=== PATIENT | female | born 1945 | race Caucasian/White ===

== ENCOUNTER 2020-08-19 20:29 | Outpatient (CLI) | payer MEDICARE | END 2020-08-19 20:30 | disposition EMS.NT | LOC: EMS 20:29 | PROVIDERS: ATTEND Surgery | DX: S09.90XA Unspecified injury of head, initial encounter (principal); W19.XXXA Unspecified fall, initial encounter; Y92.199 Unspecified place in other specified residential institution as the place of occurrence of the external cause ==

== ENCOUNTER 2021-01-04 16:26 | Outpatient (CLI) | payer MEDICARE | END 2021-01-04 16:27 | disposition EMS.NT | LOC: EMS 16:26 | DX: Z03.89 Encounter for observation for other suspected diseases and conditions ruled out (principal) ==

== ENCOUNTER 2021-03-03 15:10 | Outpatient (CLI) | payer MEDICARE | END 2021-03-03 15:11 | disposition EMS.NT | LOC: EMS 15:10 | DX: R41.0 Disorientation, unspecified (principal) ==

== ENCOUNTER 2021-04-03 21:34 | Outpatient (CLI) | payer MEDICARE | END 2021-04-03 21:35 | disposition critical access hospital (66) | LOC: EMS 21:34 | DX: Z04.3 Encounter for examination and observation following other accident (principal); M25.511 Pain in right shoulder | CPT/HCPCS: A0425; A0427 ==

== ENCOUNTER 2021-04-03 22:00 | Emergency (ER) | payer MEDICARE ==
[2021-04-04 00:21] VITALS: BP 109/82
--- NOTE | 2021-04-04 01:56 | ED Physician Documentation ---
History of Present Illness - Stated complaint Stated Complaint: HBD/GLF - Chief complaint Chief Complaint: Trauma Ext - History obtained from History obtained from: Patient, EMS - Additonal information Additional information: Patient is brought to the emergency department by EMS for chief complaint of ground-level fall and right shoulder injury. Patient states she did do some drinking tonight tripped while walking in her house. She fell on her right shoulder and states has been hurting. She denies any other complaints whatsoever. No head injury. No neck pain. No chest or abdominal pain. No hip pain. Review of Systems Ten Systems: 10 systems reviewed and negative Constitutional: reports: Reviewed and negative Eyes: reports: Reviewed and negative Ears: reports: Reviewed and negative Nose: reports: Reviewed and negative Throat: reports: Reviewed and negative Cardiac: reports: Reviewed and negative Respiratory: reports: Reviewed and negative GI: reports: Reviewed and negative : reports: Reviewed and negative Skin: reports: Reviewed and negative Musculoskeletal: reports: Joint pain Neurologic: reports: Reviewed and negative Psychiatric: reports: Reviewed and negative Endocrine: reports: Reviewed and negative Immunocompromised: reports: Reviewed and negative PD PAST MEDICAL HISTORY - Past Medical History Past Medical History: Yes Cardiovascular: Hypertension, High cholesterol Neuro: Dementia Endocrine/Autoimmune: HyPOthyroidism Psych: Depression, Anxiety - Present Medications Home Medications: Ambulatory Orders Medication Instructions Recorded Confirmed Gabapentin [Neurontin] 300 mg PO DAILY 04/03/21 04/03/21 Levothyroxine [Synthroid] 25 mcg PO DAILY 04/03/21 04/03/21 Lipase/Protease/Amylase [Creon Dr 1 each PO DAILY 04/03/21 04/03/21 12,000 Units Capsule] Lisinopril [Zestril] 25 mg PO DAILY 04/03/21 04/03/21 Metoprolol Succinate [Toprol Xl] 50 mg PO DAILY 04/03/21 04/03/21 QUEtiapine [SEROquel] 25 mg PO DAILY 04/03/21 04/03/21 Sertraline [Zoloft] 25 mg PO DAILY 04/03/21 04/03/21 - Allergies Allergies/Adverse Reactions: Allergies Allergy/AdvReac Type Severity Reaction Status Date / Time codeine Allergy Unknown Verified 04/03/21 22:05 latex Allergy Unknown Verified 04/03/21 22:05 Sulfa (Sulfonamide Allergy Unknown Verified 04/03/21 22:05 Antibiotics) - Social History Does the pt smoke?: No Smoking Status: Never smoker Does the pt drink ETOH?: Yes - Immunizations Immunizations are current?: Yes PD ED PE NORMAL - Vitals Vital signs reviewed: Yes - General General: Alert and oriented X 3, No acute distress, Well developed/nourished, Other (Appears mildly intoxicated.) - HEENT HEENT: Atraumatic, PERRL, EOMI, Moist mucous membranes - Neck Neck: Supple, no meningeal sign, No bony TTP - Cardiac Cardiac: RRR, No murmur - Respiratory Respiratory: No respiratory distress, Clear bilaterally - Abdomen Abdomen: Soft, Non tender, Non distended - Back Back: No CVA TTP, No spinal TTP - Derm Derm: Normal color, Warm and dry, No rash - Extremities Extremities: No deformity, Other (Edema and contusion over anterior superior right shoulder with point tenderness. 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, No motor deficit, No sensory deficit, Normal speech - Psych Psych: Normal mood, Normal affect Results - Vitals Vitals: Vital Signs - 24 hr 04/03/21 04/03/21 04/04/21 22:05 22:08 00:08 Temperature 36.6 C 36.6 C Heart Rate 76 76 72 Respiratory 16 16 18 Rate Blood Pressure 113/83 H 113/83 H 109/82 H O2 Saturation 98 98 96 Oxygen O2 Source Room air - Labs Labs: Laboratory Tests 04/03/21 22:46 Ethyl Alcohol 273.0 - Rads (name of study) R shoulder XR Radiology: Prelim report reviewed, EMP read indepedently, See rad report PD MEDICAL DECISION MAKING - ED course Complexity details: reviewed results, re-evaluated patient, considered differential, d/w patient ED course: The patient's blood EtOH level is found to be around 270, and right shoulder x- ray showed fractures of the proximal humerus, including head and neck. The patient was placed in a shoulder immobilizer. I discussed with her that is extremely important follows with orthopedics for this injury. She is advised not to drink so much alcohol. We have discussed the usual indications for return. Departure - Departure Disposition: 01 Home, Self Care Clinical Impression: Alcohol intoxication Qualifiers: Complication of substance-induced condition: uncomplicated Qualified Code(s): F10.920 - Alcohol use, unspecified with intoxication, uncomplicated Proximal humerus fracture Qualifiers: Encounter type: initial encounter Fracture type: closed Fracture morphology: unspecified fracture morphology Laterality: right Qualified Code(s): S42.201A - Unspecified fracture of upper end of right humerus, initial encounter for closed fracture Condition: Stable Instructions: ED Alcohol Intoxication, ED Fx Shoulder Follow-Up: Carlo Caban MD [Provider Admit Priv/Credential] - Comments: Your x-ray series tonight showed a break of your right shoulder. It is very important that you follow up with orthopedics to make sure this is healing properly. You should call their office first thing this morning to set up an appointment to be seen within the next week. Please be sure you wear the shoulder immobilizer at all times to keep the bone ends together so that they can heal. Discharge Date/Time: 04/04/21 01:59
--- NOTE | 2021-04-04 07:59 | XRAY Report ---
PROCEDURE: Shoulder 3 View RT INDICATIONS: fall/pain TECHNIQUE: 3 views of the shoulder were acquired. COMPARISON: None. FINDINGS: Bones: Acute, comminuted fracture involving the right humeral head, neck, and proximal humeral shaft. Glenohumeral alignment and acromioclavicular alignment appears maintained. Acromioclavicular and cor acoclavicular intervals are maintained. No suspicious bony lesions. Visualized ribs appear intact. Soft tissues: No suspicious soft tissue calcifications. IMPRESSION: Acute, comminuted fracture of the right humeral head, neck, and proximal humeral shaft. No significant discrepancy with initial interpretation by overnight radiologist. Reviewed by: Kash Nogueira MD on 04/04/2021 7:57 AM PDT Approved by: Kash Nogueira MD on 04/04/2021 7:57 AM PDT Station ID: [id number]
== END 2021-04-04 01:59 | disposition home or self-care (01) ==
LOC: ED 22:00
DX: S42.201A Unspecified fracture of upper end of right humerus, initial encounter for closed fracture (principal); W01.0XXA Fall on same level from slipping, tripping and stumbling without subsequent striking against object, initial encounter; Y93.89 Activity, other specified; Y92.009 Unspecified place in unspecified non-institutional (private) residence as the place of occurrence of the external cause; F10.129 Alcohol abuse with intoxication, unspecified; I10 Essential (primary) hypertension
CPT/HCPCS: 36415; 73030; 99283; 99284; G0480; 80320

== ENCOUNTER 2021-04-04 02:00 | Outpatient (CLI) | payer MEDICARE | END 2021-04-04 02:01 | disposition home or self-care (01) | LOC: EMS 02:00 | PROVIDERS: ATTEND Emergency Medicine | DX: S42.293A Other displaced fracture of upper end of unspecified humerus, initial encounter for closed fracture (principal); W19.XXXA Unspecified fall, initial encounter; Y92.199 Unspecified place in other specified residential institution as the place of occurrence of the external cause; R41.0 Disorientation, unspecified | CPT/HCPCS: A0425; A0428 ==

== ENCOUNTER 2021-04-24 17:55 | Outpatient (CLI) | payer MEDICARE ==
--- NOTE | 2021-04-25 09:03 | XRAY Report ---
PROCEDURE: Shoulder 3 View RT INDICATIONS: 4-PART FX OF SURGICAL NECK OF R HUMERUS TECHNIQUE: 3 views of the shoulder were acquired. COMPARISON: Shoulder radiographs dated 04/03/2021. FINDINGS: Accounting for differences in exam technique and patient positioning, grossly unchanged alignment of comminuted right proximal humerus fracture. There is healing callus formation since the prior study. Alignment at the AC joint is anatomic. IMPRESSION: Unchanged alignment of proximal right humerus fracture. Reviewed by: Devante Alvarez MD on 04/25/2021 9:02 AM PDT Approved by: Devante Alvarez MD on 04/25/2021 9:02 AM PDT Station ID: [id number]
== END 2021-04-24 23:59 | disposition home or self-care (01) ==
LOC: DI.N 17:55
PROVIDERS: ATTEND Physician Assistant
DX: S42.241D 4-part fracture of surgical neck of right humerus, subsequent encounter for fracture with routine healing (principal)

== ENCOUNTER 2021-06-04 14:00 | Outpatient (CLI) | payer MEDICARE ==
--- NOTE | 2021-06-05 08:42 | XRAY Report ---
PROCEDURE: Shoulder 3 View RT INDICATIONS: 4-PART FX OF SURGICAL NECK OF R HUMERUS TECHNIQUE: Views of the shoulder were acquired. COMPARISON: 04/24/2020 FINDINGS: Bones: 4 views of the right shoulder were performed. There is a comminuted and displaced fracture of the right humeral head/neck. There is no significant change compared to the prior study on 04/24/2021. The acromioclavicular joint has degenerative changes. Soft tissues: No suspicious soft tissue calcifications. IMPRESSION: Healing comminuted and displaced fracture of the right humeral head and neck. Reviewed by: Alfredo Butler on 06/05/2021 8:41 AM PDT Approved by: Alfredo Butler on 06/05/2021 8:41 AM PDT Station ID: [id number]
== END 2021-06-04 23:59 | disposition home or self-care (01) ==
LOC: DI.N 14:00
PROVIDERS: ATTEND Physician Assistant
DX: S42.241D 4-part fracture of surgical neck of right humerus, subsequent encounter for fracture with routine healing (principal)

== ENCOUNTER 2022-01-29 15:33 | Outpatient (CLI) | payer MEDICARE | END 2022-01-29 23:59 | disposition EMS.NT | LOC: EMS 15:33 | DX: I10 Essential (primary) hypertension (principal) ==

== ENCOUNTER 2022-03-29 10:29 | Outpatient (CLI) | payer MEDICARE ==
[2022-03-29 15:05] LABS: BASOPHILS # (AUTO) 0.1 10^3/uL (0.0-0.1); BASOPHILS % (AUTO) 0.7 %; EOSINOPHILS # (AUTO) 0.2 10^3/uL (0.0-0.7); EOSINOPHILS % (AUTO) 2.4 %; HCT - HEMATOCRIT 39.6 % (37.0-47.0); HGB - HEMOGLOBIN 13.1 g/dL (12.0-16.0); LYMPHOCYTES # (AUTO) 1.9 10^3/uL (1.5-3.5); LYMPHOCYTES % (AUTO) 27.2 %; MEAN CORPUSCULAR HEMOGLOBIN 29.2 pg (27.0-31.0); MEAN CORPUSCULAR HGB CONC 33.1 g/dL (32.0-36.0); MEAN CORPUSCULAR VOLUME 88.4 fL (81.0-99.0); MEAN PLATELET VOLUME 10.8 fL (7.9-10.8); MONOCYTES # (AUTO) 0.6 10^3/uL (0.0-1.0); MONOCYTES % (AUTO) 8.9 %; NEUTROPHILS # (AUTO) 4.3 10^3/uL (1.5-6.6); NEUTROPHILS % (AUTO) 60.4 %; PLT - PLATELET COUNT 285 10^3/uL (130-450); RED BLOOD COUNT 4.48 10^6/uL (4.20-5.40); RED CELL DISTRIBUTION WIDTH 14.6 % (12.0-15.0); WHITE BLOOD COUNT 7.1 x10^3/uL (4.8-10.8)
[2022-03-29 15:18] LABS: ALBUMIN 4.2 g/dL (3.2-5.5); ALBUMIN/GLOBULIN RATIO 1.3 (1.0-2.2); ALKALINE PHOSPHATASE 71 IU/L (42-121); ALT ALANINE AMINOTRANSFERASE 18 IU/L (10-60); AST ASPARTATE AMINOTRANSFERASE 18 IU/L (10-42); BILIRUBIN,TOTAL 0.9 mg/dL (0.2-1.0); BUN - BLOOD UREA NITROGEN 9 mg/dL (6-20); CALCIUM 9.7 mg/dL (8.5-10.3); CARBON DIOXIDE - CO2 29 mmol/L (21-32); CHLORIDE 92 mmol/L (101-111); CHOL/HDL RATIO 3.3 (<4.4); CHOLESTEROL 205 mg/dL; CREATININE 0.7 mg/dL (0.4-1.0); GFR - MDRD 82 (>89); GLUCOSE 95 mg/dL (70-100); HDL CHOLESTEROL 62 mg/dL; LDL CHOLESTEROL,CALCULATED 113 mg/dL; LDL/HDL RATIO 1.8 (<4.4); POTASSIUM 4.6 mmol/L (3.5-5.0); SODIUM 129 mmol/L (135-145); TOTAL PROTEIN 7.4 g/dL (6.7-8.2); TRIGLYCERIDES 148 mg/dL; VLDL CHOLESTEROL 30 mg/dL
[2022-03-29 15:49] LABS: THYROID STIMULATING HORMONE 1.66 uIU/mL (0.34-5.60)
== END 2022-03-29 10:30 | disposition home or self-care (01) ==
LOC: LAB.S 10:29
PROVIDERS: ATTEND Registered Nurse
DX: I10 Essential (primary) hypertension (principal); E03.9 Hypothyroidism, unspecified; Z13.220 Encounter for screening for lipoid disorders
CPT/HCPCS: 36415; 80053; 80061; 83721; 84443; 85025

== ENCOUNTER 2022-07-02 13:13 | Outpatient (CLI) | payer MEDICARE ==
--- NOTE | 2022-07-03 09:27 | Ultrasound Report ---
LIMITED ULTRASOUND OF LEFT BREAST: 07/02/2022 CLINICAL: Patient returns today to evaluate a focal asymmetry in the left breast. No prior exams were available for comparison. Color flow and real-time ultrasound of the left breast 4 o'clock region were performed. Real-time u ltrasonography of left breast was performed with computer guidance to assure complete coverage of the breast tissue and to provide a uniform data set. Images were transferred to a viewing station for 3- D rendering. There is a cluster of oval cysts in the left breast at 4 o'clock anterior depth. This cluster of ova l cysts is hypoechoic and measures up to 0.6 cm in size. This likely correlates with mammography fin dings. Color flow imaging demonstrates that there is no vascularity present. IMPRESSION: PROBABLY BENIGN The cluster of oval cysts in the left breast is probably benign. A follow-up left mammogram and ultrasound in 6 months is recommended to demonstrate stability. Findings and recommendations were conveyed to the patient during today's evaluation. This exam was interpreted at Station ID: [id number]. Electronically Signed By: Kash Nogueira M.D. at/:07/03/2022 08:37:04 Ultrasound BI-RADS: 3 Probably benign BI-RADS CATEGORY: (3) - 3 Ultrasound [id number] 6 month follow-up LATERALITY: (L)
--- NOTE | 2022-07-03 09:27 | Mammography Report ---
BILATERAL DIGITAL DIAGNOSTIC MAMMOGRAM 3D/2D WITH AUGMENTATION: 07/02/2022 CLINICAL: Palpable right breast lump. Due for bilat. No prior exams were available for comparison. There are scattered areas of fibroglandular density in both breasts (category b / 25%-50% glandular t issue). The right breast has post-operative findings. There are vascular calcifications in both breasts. There are grouped dystrophic calcifications in the right breast at 7 o'clock middle depth. This lesly elates as palpated, with area of clinical concern, skin marker, and surgery. There are surgical clip s associated with the calcifications. There is a 0.7 cm oval equal density focal asymmetry in the left breast at 4 o'clock anterior depth. No other significant masses or calcifications are seen in either breast. IMPRESSION: INCOMPLETE: NEEDS ADDITIONAL IMAGING EVALUATION The grouped dystrophic calcifications in the right breast at 7 o'clock middle depth are indeterminate . An ultrasound is recommended for further evaluation and is scheduled to immediately follow this exami nation. The 0.7 cm oval equal density focal asymmetry in the left breast at 4 o'clock anterior depth resemble s a cyst and is indeterminate. An ultrasound is recommended for further evaluation and is scheduled to immediately follow this exami nation. Based on the Tyrer Cuzick model (a risk assessment model) the patients lifetime risk is 2.3% and her 10 year risk is 2.3%. According to the ACR, ACS, and NCCN guidelines, an annual breast MRI exam rahat g with mammogram is recommended if the patients lifetime risk is 20% or greater. This exam was interpreted at Station ID: [id number]. NOTE: For mammograms, a report in lay terms will be sent to the patient. Approximately 15% of breast malignancies will not be visualized mammographically. In the management of a palpable breast mass, a negative mammogram must not discourage biopsy of a clinically suspicious lesion. Electronically Signed By: Kash Nogueira M.D. aty/:07/03/2022 08:32:54 ACR BI-RADS Category 0: Incomplete 3340F PARENCHYMAL PATTERN: (A) - The breast(s) demonstrate(s) scattered fibroglandular densities. BI-RADS CATEGORY: (0) - 0 Ultrasound [id number] Immediate follow-up LATERALITY: (B)
--- NOTE | 2022-07-03 09:27 | Ultrasound Report ---
LIMITED ULTRASOUND OF RIGHT BREAST: 07/02/2022 CLINICAL: Patient returns today to evaluate a focal asymmetry in the right breast. Palpable right rommel ast lump. No prior exams were available for comparison. Color flow and real-time ultrasound of the right breast 7 o'clock region were performed. Sher scale images of the real-time examination were reviewed. There is a 1.3 cm x 0.7 cm x 1 cm irregular calcified mass in the right breast at 7 o'clock middle de pth 4 cm from the nipple. This irregular mass is hypoechoic with posterior acoustic shadowing. This correlates as palpated, with mammography findings of grouped dystrophic calcifications near prior mitchell rgical site, and area of clinical concern. Color flow imaging demonstrates that there is no vascular ity present. IMPRESSION: BENIGN There is no sonographic evidence of malignancy. The 1.3 cm x 0.7 cm x 1 cm irregular calcified mass in the right breast correlates with grouped dystr ophic calcifications and is benign. A 1 year screening mammogram is recommended. Patient will also be returning in 6 months for left breast ultrasound and left mammogram for a separa te, probably benign finding. Findings and recommendations were conveyed to the patient during today's evaluation. This exam was interpreted at Station ID: [id number]. Electronically Signed By: Kash Nogueira M.D. aty/:07/03/2022 08:41:08 Entry: - 07/03/2022 09:19:10 Ultrasound BI-RADS: 2 Benign BI-RADS CATEGORY: (2) - 2 RECOMMENDATION: (ADDMAM) - Recommend additional mammographic views. recall n/a LATERALITY: (B)
== END 2022-07-02 13:14 | disposition home or self-care (01) ==
LOC: DI 13:13
PROVIDERS: ATTEND Registered Nurse
DX: R92.1 Mammographic calcification found on diagnostic imaging of breast (principal); N60.12 Diffuse cystic mastopathy of left breast

== ENCOUNTER 2023-06-28 18:03 | Outpatient (CLI) | payer MEDICARE | END 2023-06-28 23:59 | disposition critical access hospital (66) | LOC: EMS 18:03 | DX: R19.5 Other fecal abnormalities (principal); R05.9 Cough, unspecified; R11.0 Nausea; R68.83 Chills (without fever) | CPT/HCPCS: A0425; A0429 ==

== ENCOUNTER 2023-06-28 18:28 | Emergency (ER) | payer MEDICARE ==
[2023-06-28] MEDS ORDERED: NITROGLYCERIN SL 0.4 MG TABLET SL STA (18:52)
[2023-06-28] MEDS ORDERED: PANTOPRAZOLE 40 MG VIAL IVP STA (18:53)
[2023-06-28] MEDS ORDERED: SODIUM CHLORIDE 0.9% 1,000 ML IV STA (18:54)
--- NOTE | 2023-06-28 18:55 | ED Physician Documentation ---
History of Present Illness - Stated complaint Stated Complaint: GIB - Chief complaint Chief Complaint: Abd Pain - Additonal information Additional information: 78-year-old female who is a resident at [facility] presents to the emergency department for evaluation of melena this been present now for 2 days. She is also endorsing feeling dizzy, lightheaded somewhat short of air and having some chest pressure. Past medical history is most significant for GERD, previous gastric ulcers, hypertension and history of alcohol abuse. Meds: Creon, gabapentin, levothyroxine, lisinopril, metoprolol, Seroquel, sertraline Review of Systems Constitutional: reports: Myalgias, Fatigue. denies: Fever Cardiac: reports: Chest pain / pressure Respiratory: denies: Dyspnea, Cough GI: reports: Bloody / black stool. denies: Abdominal Pain : reports: Reviewed and negative Skin: reports: Reviewed and negative Musculoskeletal: reports: Reviewed and negative PD PAST MEDICAL HISTORY - Past Medical History Cardiovascular: Hypertension, High cholesterol Neuro: Dementia Endocrine/Autoimmune: HyPOthyroidism Psych: Depression, Anxiety - Present Medications Home Medications: Ambulatory Orders Medication Instructions Recorded Confirmed Gabapentin [Neurontin] 300 mg PO DAILY 04/03/21 04/03/21 Levothyroxine [Synthroid] 25 mcg PO DAILY 04/03/21 04/03/21 Lipase/Protease/Amylase [Creon Dr 1 each PO DAILY 04/03/21 04/03/21 12,000 Units Capsule] Lisinopril [Zestril] 25 mg PO DAILY 04/03/21 04/03/21 Metoprolol Succinate [Toprol Xl] 50 mg PO DAILY 04/03/21 04/03/21 QUEtiapine [SEROquel] 25 mg PO DAILY 04/03/21 04/03/21 Sertraline [Zoloft] 25 mg PO DAILY 04/03/21 04/03/21 Pantoprazole Sodium [Protonix] 40 mg PO DAILY #30 tab 06/28/23 - Allergies Allergies/Adverse Reactions: Allergies Allergy/AdvReac Type Severity Reaction Status Date / Time codeine Allergy Unknown Verified 06/28/23 18:32 latex Allergy Unknown Verified 06/28/23 18:32 Sulfa (Sulfonamide Allergy Unknown Verified 06/28/23 18:32 Antibiotics) - Social History Does the pt smoke?: No Smoking Status: Never smoker Does the pt drink ETOH?: Yes - Immunizations Immunizations are current?: Yes PD ED PE NORMAL - General General: Alert and oriented X 3, No acute distress, Well developed/nourished - HEENT HEENT: Atraumatic, Moist mucous membranes - Neck Neck: Supple, no meningeal sign, No adenopathy - Cardiac Cardiac: RRR, No murmur - Respiratory Respiratory: No respiratory distress - Abdomen Abdomen: Normal bowel sounds, Soft, Non tender - Female Female : 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 - Rectal Rectal: Other (Very small amount of dark green or black melena in the rectal vault.) - Back Back: No CVA TTP - Derm Derm: Warm and dry - Extremities Extremities: No deformity - Neuro Neuro: Alert 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 Relevant findings are: Rate: Rate (enter#) (112) Rhythm: Sinus tachycardia [place]: Normal Intervals: Normal [place]. No: Prolonged QT QRS: Poor R wave progression Ischemia: Normal ST segments Compare to prior EKG: Old EKG unavailable Computer interpretation: Agree with computer - Labs Labs: Microbiology 06/28/23 16:50 Occult Blood - Final Stool Laboratory Tests 06/28/23 06/28/23 06/28/23 19:08 19:08 19:08 WBC 13.3 H RBC 4.11 L Hgb 12.0 Hct 36.0 L MCV 87.6 MCH 29.2 MCHC 33.3 RDW 13.2 Plt Count 214 MPV 10.3 Neut # (Auto) 11.4 H Lymph # (Auto) 1.4 L [place] # (Auto) 0.4 Eos # (Auto) 0.1 Baso # (Auto) 0.1 Absolute Nucleated RBC 0.00 Nucleated RBC % 0.0 Sodium 128 L Potassium 3.3 L Chloride 92 L Carbon Dioxide 20 L Anion Gap 16.0 H BUN 21 H Creatinine 0.5 L Estimated GFR (MDRD) 120 Glucose 143 H Calcium 8.5 Total Bilirubin 0.5 AST 16 ALT 11 Alkaline Phosphatase 58 Troponin I High Sens Total Protein 6.1 L Albumin 3.7 Globulin 2.4 Albumin/Globulin Ratio 1.5 Lipase 15 Nasal Adenovirus (PCR) Nasal B. parapertussis DNA (PCR) Nasal Coronavir 229E PCR Nasal Coronavir HKU1 PCR Nasal Coronavir NL63 PCR Nasal Coronavir OC43 PCR Nasal Enterovir/Rhinovir PCR Nasal Influenza B PCR Nasal Influenza A PCR Nasal Parainfluen 1 PCR Nasal Parainfluen 2 PCR Nasal Parainfluen 3 PCR Nasal Parainfluen 4 PCR Nasal RSV (PCR) Nasal B.pertussis DNA PCR Nasal C.pneumoniae (PCR) Cj Human Metapneumo PCR Nasal M.pneumoniae (PCR) Nasal SARS-CoV-2 (PCR) Ethyl Alcohol Blood Type O POSITIVE Blood Type Recheck Antibody Screen POSITIVE 06/28/23 06/28/23 06/28/23 19:08 19:08 20:12 WBC RBC Hgb Hct MCV MCH MCHC RDW Plt Count MPV Neut # (Auto) Lymph # (Auto) [place] # (Auto) Eos # (Auto) Baso # (Auto) Absolute Nucleated RBC Nucleated RBC % Sodium Potassium Chloride Carbon Dioxide Anion Gap BUN Creatinine Estimated GFR (MDRD) Glucose Calcium Total Bilirubin AST ALT Alkaline Phosphatase Troponin I High Sens 4.1 Total Protein Albumin Globulin Albumin/Globulin Ratio Lipase Nasal Adenovirus (PCR) NOT DETECTED Nasal B. parapertussis DNA (PCR) NOT DETECTED Nasal Coronavir 229E PCR NOT DETECTED Nasal Coronavir HKU1 PCR NOT DETECTED Nasal Coronavir NL63 PCR NOT DETECTED Nasal Coronavir OC43 PCR NOT DETECTED Nasal Enterovir/Rhinovir PCR NOT DETECTED Nasal Influenza B PCR NOT DETECTED Nasal Influenza A PCR NOT DETECTED Nasal Parainfluen 1 PCR NOT DETECTED Nasal Parainfluen 2 PCR NOT DETECTED Nasal Parainfluen 3 PCR NOT DETECTED Nasal Parainfluen 4 PCR NOT DETECTED Nasal RSV (PCR) NOT DETECTED Nasal B.pertussis DNA PCR NOT DETECTED Nasal C.pneumoniae (PCR) NOT DETECTED Cj Human Metapneumo PCR NOT DETECTED Nasal M.pneumoniae (PCR) NOT DETECTED Nasal SARS-CoV-2 (PCR) NOT DETECTED Ethyl Alcohol 16.3 Blood Type Blood Type Recheck Antibody Screen 06/28/23 20:45 WBC RBC Hgb Hct MCV MCH MCHC RDW Plt Count MPV Neut # (Auto) Lymph # (Auto) [place] # (Auto) Eos # (Auto) Baso # (Auto) Absolute Nucleated RBC Nucleated RBC % Sodium Potassium Chloride Carbon Dioxide Anion Gap BUN Creatinine Estimated GFR (MDRD) Glucose Calcium Total Bilirubin AST ALT Alkaline Phosphatase Troponin I High Sens Total Protein Albumin Globulin Albumin/Globulin Ratio Lipase Nasal Adenovirus (PCR) Nasal B. parapertussis DNA (PCR) Nasal Coronavir 229E PCR Nasal Coronavir HKU1 PCR Nasal Coronavir NL63 PCR Nasal Coronavir OC43 PCR Nasal Enterovir/Rhinovir PCR Nasal Influenza B PCR Nasal Influenza A PCR Nasal Parainfluen 1 PCR Nasal Parainfluen 2 PCR Nasal Parainfluen 3 PCR Nasal Parainfluen 4 PCR Nasal RSV (PCR) Nasal B.pertussis DNA PCR Nasal C.pneumoniae (PCR) Cj Human Metapneumo PCR Nasal M.pneumoniae (PCR) Nasal SARS-CoV-2 (PCR) Ethyl Alcohol Blood Type Blood Type Recheck O POSITIVE Antibody Screen - Rads (name of study) cxr Relevant Findings:: Final report received (No acute cardiopulmonary process) PD Medical Decision Making - ED course Complexity details: reviewed results, re-evaluated patient, d/w patient ED course: 78-year-old female presents emergency department for evaluation of 2 days feeling generally weak lethargic diaphoretic and now having melena. She does admit to drinking 2 drinks prior to arrival today. She does have a history of alcohol use disorder as well as previous history of stomach ulcer/GI bleed. On presentation the emergency department the patient appeared anxious. She had a heart rate of about 110 but was normal or hypertensive. Twelve-lead EKG is interpreted by myself shows sinus tachycardia without ischemic findings. Troponin was negative. Given 2 days of symptoms this is sufficient to rule out ACS. A chest x-ray showed no acute pulmonary findings. CBC, electrolytes as interpreted by myself showed mild leukocytosis 13,000. Hemoglobin is 12. Several months ago it was 13 so essentially unchanged. Her electrolytes showed sodium of 128 and a potassium of 3.3. Sodium is within range where she has been in the past. CO2 was 20. BUN and creatinine were normal. Respiratory PCR panel was negative. Ethyl alcohol was 16. Here in the emergency department I did administer the patient a liter of IV fluid as well as IV Protonix. She is hemodynamically stable and we could consider deferral of admission if her hemoglobin stays stable. A repeat hemogram is scheduled for 10 PM tonight. There is concern of alcohol use disorder in the patient though her blood alcohol today right now is only 16. Her CT was 1. I do not find evidence to suggest she is in alcohol withdrawal. I discussed with patient that she would need outpatient follow-up and referral for her upper GI bleed. She will be started on Protonix. Patient will be signed out to my nighttime colleague to follow-up on the hemogram results. If essentially stable or unchanged patient is okay to be discharged home but if markedly decreased then we should consider admission for endoscopy. Departure - Departure Clinical Impression: Anxiety, Alcohol use GI bleed Qualifiers: GI bleed type/associated pathology: melena Qualified Code(s): K92.1 - Melena Condition: Stable Record reviewed to determine appropriate education?: Yes Prescriptions: Pantoprazole Sodium [Protonix] 40 mg PO DAILY #30 tab Comments: You came to the emergency department because for the last several days you have been feeling lightheaded, dizzy and having sweats. You have also noticed some black stools. You do have a history of previous stomach ulcers. Your stool was positive for blood. This is a sign of a gastrointestinal bleed. Please fill the prescription for the Protonix and begin taking every day. Because there is concern for gastric bleeding you should stop using alcohol immediately. You should also reduce your use of caffeine and spicy foods. Please discuss with your primary care provider this ED visit as you should be referred for an urgent endoscopy or scoping of your upper esophagus and stomach. Your labs today otherwise did not show any worrisome findings. If at any point you find that your symptoms are worsening, you have fevers, fainting, develop chest pain or shortness of air then you should return to the emergency department for repeat visit. Forms: PCP List
[2023-06-28 19:19] LABS: BASOPHILS # (AUTO) 0.1 10^3/uL (0.0-0.1); BASOPHILS % (AUTO) 0.4 %; EOSINOPHILS # (AUTO) 0.1 10^3/uL (0.0-0.7); EOSINOPHILS % (AUTO) 0.4 %; LYMPHOCYTES # (AUTO) 1.4 10^3/uL (1.5-3.5); LYMPHOCYTES % (AUTO) 10.7 %; MEAN CORPUSCULAR HEMOGLOBIN 29.2 pg (27.0-31.0); MEAN CORPUSCULAR HGB CONC 33.3 g/dL (32.0-36.0); MEAN CORPUSCULAR VOLUME 87.6 fL (81.0-99.0); MEAN PLATELET VOLUME 10.3 fL (7.9-10.8); MONOCYTES # (AUTO) 0.4 10^3/uL (0.0-1.0); MONOCYTES % (AUTO) 2.8 %; NEUTROPHILS # (AUTO) 11.4 10^3/uL (1.5-6.6); NEUTROPHILS % (AUTO) 85.3 %; PLT - PLATELET COUNT 214 10^3/uL (130-450); RED BLOOD COUNT 4.11 10^6/uL (4.20-5.40); RED CELL DISTRIBUTION WIDTH 13.2 % (12.0-15.0); WHITE BLOOD COUNT 13.3 x10^3/uL (4.8-10.8)
--- NOTE | 2023-06-28 19:20 | XRAY Report ---
PROCEDURE: Chest 1 View X-Ray INDICATIONS: chest pain TECHNIQUE: One view of the chest was acquired. COMPARISON: Right shoulder radiographs 06/04/2021. FINDINGS: Surgical changes and devices: None. Lungs and pleura: No pleural effusions or pneumothorax. Lungs are clear. Mediastinum: Cardiac silhouette is at the upper limits of normal in size. Bones and chest wall: Remote right humeral head/neck fracture. No suspicious bony lesions. Overlyin g soft tissues appear unremarkable. IMPRESSION: No acute cardiopulmonary process. Reviewed by: Fredy Cooney MD on 06/28/2023 7:18 PM PDT Approved by: Fredy Cooney MD on 06/28/2023 7:18 PM PDT Station ID: [id number]
[2023-06-28 19:31] LABS: ALBUMIN 3.7 g/dL (3.2-5.5)
[2023-06-28 19:35] LABS: ALBUMIN/GLOBULIN RATIO 1.5 (1.0-2.2); BILIRUBIN,TOTAL 0.5 mg/dL (0.2-1.0); CALCIUM 8.5 mg/dL (8.5-10.3); CREATININE 0.5 mg/dL (0.6-1.3); POTASSIUM 3.3 mmol/L (3.5-4.5); TOTAL PROTEIN 6.1 g/dL (6.4-8.9)
[2023-06-28] MEDS ORDERED: LORazepam 2 MG/ML VIAL IVP STA ×2 (19:38→23:12)
[2023-06-28 21:17] LABS: B. PARAPERTUSSIS- RESP PCR PAN NOT DETECTED; B. PERTUSSIS- RESP PCR PANEL NOT DETECTED; C. PNEUMONIAE- RESP PCR PANEL NOT DETECTED; CORONAVIRUS 229E-RESP PCR NOT DETECTED; CORONAVIRUS HKU1-RESP PCR NOT DETECTED; CORONAVIRUS NL63-RESP PCR NOT DETECTED; CORONAVIRUS OC43-RESP PCR NOT DETECTED; HUMAN METAPNEUMOVIRUS NOT DETECTED; INFLUENZA A- RESP PCR PANEL NOT DETECTED; INFLUENZA B - RESP PCR PANEL NOT DETECTED; M. PNEUMONIAE- RESP PCR PANEL NOT DETECTED; PARAINFLUENZA VIRUS 1 NOT DETECTED; PARAINFLUENZA VIRUS 2 NOT DETECTED; PARAINFLUENZA VIRUS 3 NOT DETECTED; PARAINFLUENZA VIRUS 4 NOT DETECTED; RHINOVIRUS/ENTEROVIRUS NOT DETECTED; RSV- RESP PCR PANEL NOT DETECTED; SARS-CoV-2 -RESP PCR PANEL NOT DETECTED
[2023-06-28] MEDS ORDERED: POTASSIUM BICARB 25 MEQ TABLET PO STA (22:03)
[2023-06-28 22:05] LABS: HCT - HEMATOCRIT 34.3 % (37.0-47.0); HGB - HEMOGLOBIN 11.3 g/dL (12.0-16.0); MEAN CORPUSCULAR HEMOGLOBIN 29.1 pg (27.0-31.0); MEAN CORPUSCULAR HGB CONC 32.9 g/dL (32.0-36.0); MEAN CORPUSCULAR VOLUME 88.4 fL (81.0-99.0); MEAN PLATELET VOLUME 10.1 fL (7.9-10.8); RED BLOOD COUNT 3.88 10^6/uL (4.20-5.40); RED CELL DISTRIBUTION WIDTH 13.1 % (12.0-15.0); WHITE BLOOD COUNT 10.6 x10^3/uL (4.8-10.8)
[2023-06-28 22:23] VITALS: O2SAT 100
[2023-06-29 00:07] VITALS: BP 136/88
--- NOTE | 2023-06-29 06:56 | ED Physician Documentation ---
ED Addendum - Addendum Addendum: 06/29/23 06:50 I received signout/turnover of care of this patient from LEONOR Joseph; please see her note for complete H&P. In brief, patient presents due to LGIB manifest as melanotic stool. At the time of signout, a repeat H/H is pending. Her initial hemoglobin was 12.0. The repeat hemoglobin is 11.3, which does not represent a significant change from the initial value. I discussed this result with the patient. She is AAOx3, NAD, tolerating PO. She says she has not had any more output (stool nor blood) since LEONOR Joseph was last in the room. Patient remains mildly tachycardic with heart rate in the 1 teens on the monitor. Patient says she does feel somewhat anxious and that she felt improved after she was given a dose of lorazepam earlier in the shift. Thus, I ordered 1 mg IV lorazepam which was given prior to discharge. Return precautions were carefully reviewed with the patient, and she is encouraged to return if worse in any way; emphasis is specifically placed on returning to the ER if she has increasing amounts of blood in his stool, any lightheadedness, shortness of breath, chest pain, abdominal pain, fever. I instructed her to seek follow up with her PCP, next available appointment, for reevaluation (even if she is feeling well and does not have recurrence of her symptoms/signs).
== END 2023-06-29 00:19 | disposition home or self-care (01) ==
LOC: EDUNIT# → ED 18:28
DX: K92.1 Melena (principal); F41.9 Anxiety disorder, unspecified; Z20.822 Contact with and (suspected) exposure to COVID-19
CPT/HCPCS: 36415; 71045; 80053; 82272; 83690; 84484; 85025; 85027; 86850; 86870; 86880; 86900; 86901; 87633; 93005; 96361; 96374; 96375; 96376; 99284; A9270; G0480; J2060; 80320

== ENCOUNTER 2023-07-15 16:36 | Outpatient (CLI) | payer MEDICARE | END 2023-07-15 16:37 | disposition EMS.NT | LOC: EMS 16:36 | DX: I10 Essential (primary) hypertension (principal); R00.0 Tachycardia, unspecified ==

== ENCOUNTER 2024-01-22 04:17 | Outpatient (CLI) | payer MEDICARE | END 2024-01-22 23:59 | disposition EMS.NT | LOC: EMS 04:17 | DX: I10 Essential (primary) hypertension (principal) ==

== ENCOUNTER 2024-01-22 06:05 | Outpatient (CLI) | payer MEDICARE | END 2024-01-22 23:59 | disposition critical access hospital (66) | LOC: EMS 06:05 | DX: I10 Essential (primary) hypertension (principal); F41.9 Anxiety disorder, unspecified | CPT/HCPCS: A0425; A0429 ==

== ENCOUNTER 2024-01-22 06:33 | Emergency (ER) | payer MEDICARE ==
[2024-01-22 06:49] VITALS: O2SAT 98
--- NOTE | 2024-01-22 07:01 | ED Physician Documentation ---
History of Present Illness - Stated complaint Stated Complaint: COLD SWEATS/COUGH - Chief complaint Chief Complaint: Resp - History obtained from History obtained from: Patient - Additonal information Additional information: Patient is brought to the emergency department by EMS for chief complaint of dyspnea, cough, and sweating that started overnight. The patient states she felt fairly well going to bed last night and did not feel ill yesterday. She has been out of her medications, due to a delay in getting the next set mailed to [place] where she resides. The patient states she has had a little bit of chest discomfort going across her lower chest but denies any radiation. She states she has been sweating heavily since she woke up with this a few hours ago and has already soaked through 1 shirt and had to change before coming here. The patient denies any nausea or vomiting. No fevers. She states she was not feeling chilled until she became sweaty. She has had mild sputum production with her cough. No sore throat. She states that she does not have any specific sick contacts but that she is the youngest resident at [facility] and so anything is possible. The patient does not have any known cardiac history. Medications included in her normal list are long-acting metoprolol, Synthroid, and anxiety meds unspecified. The patient states she is feeling anxious currently. PD PAST MEDICAL HISTORY - Past Medical History Past Medical History: Yes Cardiovascular: Hypertension, High cholesterol Neuro: Dementia Endocrine/Autoimmune: HyPOthyroidism Psych: Depression, Anxiety - Past Surgical History Past Surgical History: Yes - Present Medications Home Medications: Ambulatory Orders Medication Instructions Recorded Confirmed Gabapentin [Neurontin] 300 mg PO DAILY 04/03/21 04/03/21 Levothyroxine [Synthroid] 25 mcg PO DAILY 04/03/21 04/03/21 Lipase/Protease/Amylase [Creon Dr 1 each PO DAILY 04/03/21 04/03/21 12,000 Units Capsule] Lisinopril [Zestril] 25 mg PO DAILY 04/03/21 04/03/21 Metoprolol Succinate [Toprol Xl] 50 mg PO DAILY 04/03/21 04/03/21 QUEtiapine [SEROquel] 25 mg PO DAILY 04/03/21 04/03/21 Sertraline [Zoloft] 25 mg PO DAILY 04/03/21 04/03/21 Pantoprazole Sodium [Protonix] 40 mg PO DAILY #30 tab 06/28/23 - Allergies Allergies/Adverse Reactions: Allergies Allergy/AdvReac Type Severity Reaction Status Date / Time cefazolin Allergy Unknown Verified 01/22/24 06:45 codeine Allergy Unknown Verified 01/22/24 06:45 latex Allergy Unknown Verified 01/22/24 06:45 Sulfa (Sulfonamide Allergy Unknown Verified 01/22/24 06:45 Antibiotics) - Social History Does the pt smoke?: No Smoking Status: Never smoker Does the pt drink ETOH?: Yes - Immunizations Immunizations are current?: Yes PD ED PE NORMAL - Vitals Vital signs reviewed: Yes - General General: Alert and oriented X 3, No acute distress (The patient appears slightly anxious but otherwise no distress.), Well developed/nourished - HEENT HEENT: Atraumatic, PERRL, EOMI, Moist mucous membranes - Neck Neck: Supple, no meningeal sign - Cardiac Cardiac: No murmur, Other (Tachycardic rate regular rhythm) - Respiratory Respiratory: No respiratory distress, Clear bilaterally - Abdomen Abdomen: Soft, Non tender, Non distended - Derm Derm: Normal color, No rash, Other (The patient appears mildly diaphoretic and her T-shirt is soaked with sweat in the back.) - Extremities Extremities: No deformity, No edema, No calf tenderness / cord - Neuro Neuro: Alert and oriented X 3, Other (Grossly intact) - Psych Psych: Normal affect, Other (Slightly anxious otherwise normal mood.) Results - Vitals Vitals: Vital Signs - 24 hr 01/22/24 01/22/24 06:41 06:46 Temperature 36.2 C L Heart Rate 122 H 120 H Respiratory 18 Rate Blood Pressure 171/106 H O2 Saturation 98 Oxygen O2 Source Room air PD Medical Decision Making - ED course Complexity details: reviewed results, re-evaluated patient, considered differential, d/w patient ED course: The patient was evaluated upon arrival in the emergency department with EMS by myself. She was diaphoretic and tachycardic and complaining of a sense of dyspnea and appeared anxious. There were a number of possible explanations for this but given that she has been out of her medications and has multiple complaints, I did order a broad workup including ER abdominal panel, CBC, troponin, chest x-ray, EKG, and respiratory PCR panel. The patient was also given a dose of Xanax in the emergency department. At this point in time, the patient will be signed out to Dr. De La Paz at change of shift, pending all of the above, reevaluation and final disposition. Departure - Departure
[2024-01-22] MEDS: ALPRAZolam 0.25 MG TABLET PO STA (07:11)
[2024-01-22] MEDS: METOPROLOL SUCCINATE 50 MG TABLET PO STA (07:11)
--- NOTE | 2024-01-22 07:26 | ED Physician Documentation ---
ED Addendum - Addendum Addendum: 01/22/24 Patient care assumed at shift change. Patient was having cold sweats this m orning along with cough. Labs reviewed including CBC, chemistries, EKG, troponin. WBC 11.7. Chest x-ray is negative for pneumonia. Patient was tachycardic but missed her metoprolol for the last 2 days was given a dose here with improvement in HR. Also given IV fluids and Zofran. CT angio was obtained given tachycardia and reports of cough which is negative for pulmonary embolism. There are findings of gallstones and patient had reported nausea earlier. Does have mild right upper quadrant tenderness but patient does not want anything for pain. Ultrasound was obtained Which shows cholelithiasis but no signs of acute cholecystitis. Patient is feeling better here. Counseled on continued supportive care as well as need for close follow-up. Patient also advised on strict return precautions for any worsening symptoms. Results - Vitals Vitals: Vital Signs - 24 hr 01/22/24 01/22/24 06:41 06:46 Temperature 36.2 C L Heart Rate 122 H 120 H Respiratory 18 Rate Blood Pressure 171/106 H O2 Saturation 98 Oxygen O2 Source Room air - EKG (time done) 0719 EKG releavant findings:: EKG personally interpreted by author of this note. Relevant findings are: Rate 117, sinus tachycardia, no STEMI, QTc 457 Departure - Departure Disposition: 01 Home, Self Care Clinical Impression: Cough, Gallstones Condition: Stable Instructions: ED Gallstone W Biliary Colic Follow-Up: [facility] [Provider Group] () Marianne Sanders ARNP [Primary Care Provider] - Prescriptions: Ondansetron Odt [Zofran] 4 mg TL Q6H PRN #10 tablet PRN Reason: Nausea / Vomiting Comments: Your testing today was negative for the respiratory viruses that we look for including flu, RSV and COVID. There is no signs of pneumonia on your chest x- ray or the CT scan of your lungs. There is also no signs of a blood clot. We did find findings of gallstones on your CAT scan and you were having some abdominal pain. We did perform an ultrasound which shows that you have gallstones but no signs of infection of the gallbladder that would require it to be removed emergently. I would recommend close follow-up with your primary care doctor. I have sent a prescription for antinausea medication to [facility] in [place]. Please making sure that you are taking your prescriptions as prescribed. Return to the emergency department with any worsening symptoms. Forms: PCP List Discharge Date/Time: 01/22/24 11:34
[2024-01-22 07:30] LABS: BASOPHILS % (AUTO) 0.3 %; EOSINOPHILS % (AUTO) 0.1 %; HCT - HEMATOCRIT 34.1 % (37.0-47.0); HGB - HEMOGLOBIN 11.2 g/dL (12.0-16.0); LYMPHOCYTES # (AUTO) 0.9 10^3/uL (1.5-3.5); LYMPHOCYTES % (AUTO) 7.5 %; MEAN CORPUSCULAR HEMOGLOBIN 32.5 pg (27.0-31.0); MEAN CORPUSCULAR HGB CONC 32.8 g/dL (32.0-36.0); MEAN CORPUSCULAR VOLUME 98.8 fL (81.0-99.0); MEAN PLATELET VOLUME 10.8 fL (7.9-10.8); MONOCYTES # (AUTO) 0.4 10^3/uL (0.0-1.0); MONOCYTES % (AUTO) 3.1 %; NEUTROPHILS # (AUTO) 10.4 10^3/uL (1.5-6.6); NEUTROPHILS % (AUTO) 88.2 %; PLT - PLATELET COUNT 215 10^3/uL (130-450); RED BLOOD COUNT 3.45 10^6/uL (4.20-5.40); RED CELL DISTRIBUTION WIDTH 14.3 % (12.0-15.0); WHITE BLOOD COUNT 11.7 x10^3/uL (4.8-10.8)
[2024-01-22 07:51] LABS: ALBUMIN/GLOBULIN RATIO 1.4 (1.0-2.2); BILIRUBIN,TOTAL 0.3 mg/dL (0.2-1.0); CALCIUM 9.2 mg/dL (8.5-10.3); CREATININE 0.6 mg/dL (0.6-1.3); TOTAL PROTEIN 6.9 g/dL (6.4-8.9)
[2024-01-22] MEDS: ONDANSETRON 4 MG/2 ML VIAL IVP STA (07:54)
[2024-01-22] MEDS: SODIUM CHLORIDE 0.9% 1,000 ML IV STA (07:54)
[2024-01-22 08:02] LABS: THYROID STIMULATING HORMONE 2.25 uIU/mL (0.34-5.60)
--- NOTE | 2024-01-22 08:12 | XRAY Report ---
PROCEDURE: Chest 1V INDICATIONS: dyspnea TECHNIQUE: One view of the chest was acquired. COMPARISON: 06/28/2023 FINDINGS: Surgical changes and devices: None. Lungs and pleura: No pleural effusions or pneumothorax. Lungs are clear. Mediastinum: Mediastinal contours appear normal. Heart size is enlarged. Bones and chest wall: No suspicious bony lesions. Overlying soft tissues appear unremarkable. IMPRESSION: No acute cardiopulmonary process. Cardiomegaly. Reviewed by: Arian Mckeon MD on 01/22/2024 8:11 AM PDT Approved by: Arian Mckeon MD on 01/22/2024 8:11 AM PDT Station ID: [id number]
[2024-01-22 08:17] LABS: B. PARAPERTUSSIS- RESP PCR PAN NOT DETECTED; B. PERTUSSIS- RESP PCR PANEL NOT DETECTED; C. PNEUMONIAE- RESP PCR PANEL NOT DETECTED; CORONAVIRUS 229E-RESP PCR NOT DETECTED; CORONAVIRUS HKU1-RESP PCR NOT DETECTED; CORONAVIRUS NL63-RESP PCR NOT DETECTED; CORONAVIRUS OC43-RESP PCR NOT DETECTED; HUMAN METAPNEUMOVIRUS NOT DETECTED; INFLUENZA A- RESP PCR PANEL NOT DETECTED; INFLUENZA B - RESP PCR PANEL NOT DETECTED; M. PNEUMONIAE- RESP PCR PANEL NOT DETECTED; PARAINFLUENZA VIRUS 1 NOT DETECTED; PARAINFLUENZA VIRUS 2 NOT DETECTED; PARAINFLUENZA VIRUS 3 NOT DETECTED; PARAINFLUENZA VIRUS 4 NOT DETECTED; RHINOVIRUS/ENTEROVIRUS NOT DETECTED; RSV- RESP PCR PANEL NOT DETECTED; SARS-CoV-2 -RESP PCR PANEL NOT DETECTED
[2024-01-22] MEDS ORDERED: iohexoL-300 100 ML VIAL ONE (08:17)
--- NOTE | 2024-01-22 09:37 | CT Report ---
PROCEDURE: Angio Chest INDICATIONS: cough/tachycardia CONTRAST: Omni 300 80ml TECHNIQUE: After the administration of intravenous contrast, 2 mm axial images were acquired from the pulmonary apices to the posterior costophrenic angles during the arterial phase. In addition, 1 mm lung kernel and 5 mm soft tissue kernel reconstructions were performed. 3-dimensional coronal oblique maximum int ensity projection (MIP) reformats, 8 mm axial MIP, and 5 mm coronal and sagittal MPR reformats were t hen performed through the thorax. For radiation dose reduction, the following was used: automated exp osure control, adjustment of mA and/or kV according to patient size. COMPARISON: CXR earlier today, 06/28/2023. FINDINGS: Image quality: Excellent. Large vessels: No filling defects within the opacified pulmonary arteries, accounting for motion and contrast timing. No evidence of acute aortic syndrome or aortic aneurysm. Left vertebral artery origi nates off of the aortic arch. No aortic dissection. Lungs and pleura: No consolidation. No pleural effusions. No pneumothorax. No suspicious pulmonary no dules which require follow up. A few pulmonary nodules measuring 0.4 cm or less. For example right mi ddle lobe 0.3 cm, (6/38). Mediastinum: Heart size is prominent. No pericardial effusion. No mediastinal adenopathy by size crit eria. Moderate size hiatal hernia. Several perigastric clips. Bilateral breast implants. Chest wall and lower neck: Thyroid is unremarkable. No axillary or supraclavicular adenopathy by size . Bones: No aggressive osseous abnormality. Mild scoliosis. T10 compression fracture. Upper Abdomen: Multiple gallstones. No adrenal nodule. IMPRESSION: 1. No pulmonary embolism. No aortic dissection. 2. No acute airspace opacity. 3. Moderate-sized hiatal hernia. Several perigastric clips. 4. Multiple gallstones. 5. Prior T10 compression fracture. Reviewed by: Karri Almeida MD on 01/22/2024 9:36 AM PDT Approved by: Karri Almeida MD on 01/22/2024 9:36 AM PDT Station ID: [id number]
[2024-01-22] MEDS: iohexoL-300 100 ML VIAL IVP ONE (10:39)
[2024-01-22 11:27] VITALS: BP 151/83
--- NOTE | 2024-01-22 11:36 | Ultrasound Report ---
PROCEDURE: Abdomen Limited INDICATIONS: RUQ/gallstones TECHNIQUE: Real-time focused scanning was performed of the abdomen, with image documentation. COMPARISONS: Chest CT 01/22/2024. FINDINGS: Liver: Increased liver echogenicity, commonly mild hepatic steatosis. Gallbladder: Cholelithiasis without wall thickening. Biliary ducts: Intrahepatic bile ducts are non-dilated. Extrahepatic bile duct caliber measures 3 m m. Normal is 6-7 mm or less in diameter, or 10 mm or less post-cholecystectomy. Pancreas: Not well visualized due to overlying bowel gas. Right kidney: Normal in size and echotexture. Right kidney measures 9.8 cm long. No hydronephrosis o r nephrolithiasis. No solid masses. No complex renal cystic lesions which require follow-up. Miscellaneous: No free abdominal fluid. IMPRESSION: Cholelithiasis without sonographic evidence of acute cholecystitis. Hepatic steatosis. Reviewed by: Derrek Celeste MD on 01/22/2024 11:35 AM PDT Approved by: Derrek Celeste MD on 01/22/2024 11:35 AM PDT Station ID: [id number]
== END 2024-01-22 11:34 | disposition home or self-care (01) ==
LOC: EDUNIT# → ED 06:33
DX: K80.20 Calculus of gallbladder without cholecystitis without obstruction (principal); R05.9 Cough, unspecified; I10 Essential (primary) hypertension; E78.00 Pure hypercholesterolemia, unspecified; E03.9 Hypothyroidism, unspecified; F03.90 Unspecified dementia, unspecified severity, without behavioral disturbance, psychotic disturbance, mood disturbance, and anxiety; Z79.899 Other long term (current) drug therapy
CPT/HCPCS: 36415; 71045; 71275; 76705; 80053; 83690; 84443; 84484; 85025; 87633; 93005; 96374; 99284; A9270; Q9967

== ENCOUNTER 2024-02-16 18:42 | Outpatient (CLI) | payer MEDICARE | END 2024-02-16 23:59 | disposition critical access hospital (66) | LOC: EMS 18:42 | DX: R55 Syncope and collapse (principal); R32 Unspecified urinary incontinence; R00.0 Tachycardia, unspecified | CPT/HCPCS: A0425; A0427 ==

== ENCOUNTER 2024-02-16 19:06 | Inpatient (IN) | payer MEDICARE ==
[2024-02-16 19:28] LABS: BASOPHILS # (AUTO) 0.1 10^3/uL (0.0-0.1); BASOPHILS % (AUTO) 0.5 %; EOSINOPHILS % (AUTO) 0.3 %; HGB - HEMOGLOBIN 8.8 g/dL (12.0-16.0); LYMPHOCYTES # (AUTO) 1.5 10^3/uL (1.5-3.5); LYMPHOCYTES % (AUTO) 12.7 %; MEAN CORPUSCULAR HEMOGLOBIN 32.8 pg (27.0-31.0); MEAN CORPUSCULAR HGB CONC 31.4 g/dL (32.0-36.0); MEAN CORPUSCULAR VOLUME 104.5 fL (81.0-99.0); MEAN PLATELET VOLUME 10.8 fL (7.9-10.8); MONOCYTES # (AUTO) 0.8 10^3/uL (0.0-1.0); MONOCYTES % (AUTO) 7.3 %; NEUTROPHILS % (AUTO) 78.8 %; NRBC ABSOLUTE COUNT (AUTO) 0.03 x10^3/uL; NUCLEATED RED BLOOD CELLS AUTO 0.3 /100WBC; PLT - PLATELET COUNT 222 10^3/uL (130-450); RED BLOOD COUNT 2.68 10^6/uL (4.20-5.40); RED CELL DISTRIBUTION WIDTH 16.5 % (12.0-15.0); WHITE BLOOD COUNT 11.4 x10^3/uL (4.8-10.8)
[2024-02-16 19:40] LABS: MAGNESIUM 1.6 mg/dL (1.7-2.3)
[2024-02-16 19:46] LABS: ALBUMIN 3.4 g/dL (3.2-5.5); ALBUMIN/GLOBULIN RATIO 1.5 (1.0-2.2); ALKALINE PHOSPHATASE 57 IU/L (42-121); ALT ALANINE AMINOTRANSFERASE 23 IU/L (10-60); AST ASPARTATE AMINOTRANSFERASE 18 IU/L (10-42); BILIRUBIN,TOTAL 0.4 mg/dL (0.2-1.0); BUN - BLOOD UREA NITROGEN 27 mg/dL (6-20); CALCIUM 8.5 mg/dL (8.5-10.3); CARBON DIOXIDE - CO2 22 mmol/L (21-32); CHLORIDE 95 mmol/L (101-111); CREATININE 0.6 mg/dL (0.6-1.3); GFR - MDRD 97 (>89); GLUCOSE 142 mg/dL (74-104); LIPASE < 10 U/L (11-82); POTASSIUM 4.2 mmol/L (3.5-4.5); SODIUM 128 mmol/L (135-145); TOTAL PROTEIN 5.6 g/dL (6.4-8.9)
[2024-02-16] MEDS: SODIUM CHLORIDE 0.9% 500 ML IV ONE (20:07)
[2024-02-16 20:29] LABS: BILIRUBIN,URINE NEGATIVE (NEGATIVE); CLARITY,URINE HAZY (CLEAR); GLUCOSE, URINE (UA) NEGATIVE (NEGATIVE); KETONES,URINE (UA) TRACE mg/dL (NEGATIVE); LEUKOCYTE ESTERASE, URINE MODERATE (NEGATIVE); NITRITE,URINE NEGATIVE (NEGATIVE); OCCULT BLOOD,URINE NEGATIVE (NEGATIVE); PH,URINE 5.5 PH (5.0-7.5); PROTEIN,URINE NEGATIVE (NEGATIVE); UROBILINOGEN,URINE 0.2 (NORMAL) E.U./dL (NORMAL)
[2024-02-16] MEDS: ALPRAZolam 0.25 MG TABLET PO STA (20:42)
[2024-02-16 20:59] LABS: RBC,URINE 0-5 /HPF (0-5); WBC,URINE >25 /HPF (0-5)
[2024-02-16 21:00] LABS: BACTERIA,URINE Few /HPF (None Seen); CASTS, URINE 6-10 Hyaline Casts /LPF; SQUAMOUS EPITHELIAL CELL,UR FEW Squamous (<= Few)
[2024-02-16] MEDS ORDERED: iohexoL-300 100 ML VIAL ONE (23:38)
[2024-02-17] MEDS: iohexoL-300 100 ML VIAL IVP ONE (00:24)
--- NOTE | 2024-02-17 00:40 | CT Report ---
PROCEDURE: Angio Chest INDICATIONS: syncope, tachycardia, dyspnea CONTRAST: Omni 300, 80mls TECHNIQUE: After the administration of intravenous contrast, 2 mm axial images were acquired from the pulmonary apices to the posterior costophrenic angles during the arterial phase. In addition, 1 mm lung kernel and 5 mm soft tissue kernel reconstructions were performed. 3-dimensional coronal oblique maximum int ensity projection (MIP) reformats, 8 mm axial MIP, and 5 mm coronal and sagittal MPR reformats were t hen performed through the thorax. For radiation dose reduction, the following was used: automated exp osure control, adjustment of mA and/or kV according to patient size. COMPARISON: None. FINDINGS: Image quality: Excellent. Large vessels: No filling defects within the opacified pulmonary arteries, accounting for motion and contrast timing. No evidence of acute aortic syndrome or aortic aneurysm. Lungs and pleura: No consolidation. No pleural effusions. No pneumothorax. No suspicious pulmonary n odules which require follow up. Mediastinum: Heart size is normal. No pericardial effusion. No large vessel abnormality. No mediastin al adenopathy by size criteria. Chest wall and lower neck: Thyroid is unremarkable. No axillary or supraclavicular adenopathy by size . Bones: No aggressive osseous abnormality. Upper Abdomen: Unremarkable. IMPRESSION: No pulmonary embolus. No pneumonia found. Reviewed by: Vasile Diaz MD on 02/17/2024 12:39 AM PDT Approved by: Vasile Diaz MD on 02/17/2024 12:39 AM PDT Station ID: [id number]
[2024-02-17] MEDS: HYDROmorphone 0.5 MG/0.5 ML SYRINGE IVP STA ×2 (00:53→23:04)
--- NOTE | 2024-02-17 01:59 | ED Physician Documentation ---
History of Present Illness - Stated complaint Stated Complaint: SYNCOPE - Chief complaint Chief Complaint: Neuro - History obtained from History obtained from: Patient, EMS - Additonal information Additional information: The patient is brought to the emergency department by EMS for chief complaint of lightheadedness, syncopal episode, and just feeling "bad" for the last couple of days. She states that she has not really had any other specific symptoms. No fevers or chills. No pain. No dysuria. She states that she a couple of weeks ago had a period of black stools, but this has resolved. The patient denies nausea or vomiting. She states that she was feeling unwell so she was just sitting up in her recliner last night and feels as though she "passed out". She cannot really explain why she thinks she passed out versus just falling asleep. She states she is felt very lightheaded and also like things are spinning. She states she had an episode like this a few weeks ago when she was having the black stools but it seemed to get a little better though never quite resolving all the way. The patient states that even laying in the bed she just feels "dizzy". Medics report that the patient's blood pressure has been okay but she has been tachycardic throughout transport. This is despite receiving about 250 cc of IV fluid. No other complaints at this time. PD PAST MEDICAL HISTORY - Past Medical History Past Medical History: Yes Cardiovascular: Hypertension, High cholesterol Neuro: Dementia Endocrine/Autoimmune: HyPOthyroidism Psych: Depression, Anxiety - Past Surgical History Past Surgical History: Yes - Present Medications Home Medications: Ambulatory Orders Medication Instructions Recorded Confirmed Gabapentin [Neurontin] 300 mg PO DAILY 04/03/21 02/16/24 Levothyroxine [Synthroid] 25 mcg PO DAILY 04/03/21 02/16/24 Lipase/Protease/Amylase [Creon Dr 5 cap PO DAILY 04/03/21 02/16/24 12,000 Units Capsule] Metoprolol Succinate [Toprol Xl] 50 mg PO DAILY 04/03/21 02/16/24 Ondansetron Odt [Zofran] 4 mg TL Q6H PRN #10 tablet 01/22/24 02/16/24 Magnesium Oxide [Mag Ox] 400 mg PO DAILY 02/16/24 02/16/24 Multivitamin 1 each PO DAILY 02/16/24 02/16/24 lisinopriL [Lisinopril] 20 mg PO DAILY 02/16/24 02/16/24 - Allergies Allergies/Adverse Reactions: Allergies Allergy/AdvReac Type Severity Reaction Status Date / Time cefazolin Allergy Unknown Verified 02/16/24 19:09 codeine Allergy Unknown Verified 02/16/24 19:09 latex Allergy Unknown Verified 02/16/24 19:09 Penicillins Allergy Unknown Verified 02/16/24 20:57 Sulfa (Sulfonamide Allergy Unknown Verified 02/16/24 19:09 Antibiotics) - Social History Does the pt smoke?: No Smoking Status: Never smoker Does the pt drink ETOH?: Yes Does the pt have substance abuse?: No - Immunizations Immunizations are current?: Yes PD ED PE NORMAL - Vitals Vital signs reviewed: Yes - General General: Alert and oriented X 3, No acute distress, Well developed/nourished, Other (The patient is not in distress, but appears to not feel well.) - HEENT HEENT: Atraumatic, EOMI, Moist mucous membranes - Neck Neck: Supple, no meningeal sign - Cardiac Cardiac: RRR, No murmur, Strong equal pulses - Respiratory Respiratory: No respiratory distress, Clear bilaterally - Abdomen Abdomen: Soft, Non tender, Non distended - Derm Derm: No rash, Other (Slight diaphoresis, cool, slight pallor.) - Extremities Extremities: No deformity, No edema - Neuro Neuro: Other (Alert, appropriate.) - Psych Psych: Normal mood, Normal affect Results - Vitals Vitals: Oxygen O2 Source Room air - EKG (time done) 1911 EKG releavant findings:: EKG personally interpreted by author of this note. Relevant findings are: Rate: Rate (enter#) (116) Rhythm: Sinus tachycardia, Other (Premature atrial complexes.) [place]gett: LAD Intervals: Normal KS QRS: Normal Ischemia: Normal ST segments, Other (Borderline repolarization abnormality) Compare to prior EKG: Old EKG unavailable Computer interpretation: Agree with computer - Labs Labs: Microbiology 02/16/24 20:16 Blood Culture - Preliminary Blood - Right Hand NO GROWTH AFTER 2 DAYS 02/16/24 20:09 Blood Culture - Preliminary Blood - Right Arm NO GROWTH AFTER 2 DAYS 02/16/24 20:10 Urine Culture - Final Urine,Clean Catch 10-50,000 COLONIES/ML Polymicrobial growth including potential pathogens. This is suggestive of skin or other contamination. Laboratory Tests 02/16/24 02/16/24 02/16/24 19:24 19:24 19:24 WBC 11.4 H RBC 2.68 L Hgb 8.8 L Hct 28.0 L MCV 104.5 H MCH 32.8 H MCHC 31.4 L RDW 16.5 H Plt Count 222 MPV 10.8 Neut # (Auto) 9.0 H Lymph # (Auto) 1.5 Galax # (Auto) 0.8 Eos # (Auto) 0.0 Baso # (Auto) 0.1 Absolute Nucleated RBC 0.03 Nucleated RBC % 0.3 Sodium 128 L Potassium 4.2 Chloride 95 L Carbon Dioxide 22 Anion Gap 11.0 BUN 27 H Creatinine 0.6 Estimated GFR (MDRD) 97 Glucose 142 H Lactic Acid Calcium 8.5 Magnesium 1.6 L Total Bilirubin 0.4 AST 18 ALT 23 Alkaline Phosphatase 57 Troponin I High Sens 5.6 Total Protein 5.6 L Albumin 3.4 Globulin 2.2 Albumin/Globulin Ratio 1.5 Lipase < 10 L Urine Color Urine Clarity Urine pH Ur Specific Gunter Urine Protein Urine Glucose (UA) Urine Ketones Urine Occult Blood Urine Nitrite Urine Bilirubin Urine Urobilinogen Ur Leukocyte Esterase Urine RBC Urine WBC Ur Squamous Epith Cells Urine Bacteria Urine Casts Ur Microscopic Review Urine Culture Comments Nasal Adenovirus (PCR) Nasal B. parapertussis DNA (PCR) Nasal Coronavir 229E PCR Nasal Coronavir HKU1 PCR Nasal Coronavir NL63 PCR Nasal Coronavir OC43 PCR Nasal Enterovir/Rhinovir PCR Nasal Influenza B PCR Nasal Influenza A PCR Nasal Parainfluen 1 PCR Nasal Parainfluen 2 PCR Nasal Parainfluen 3 PCR Nasal Parainfluen 4 PCR Nasal RSV (PCR) Nasal B.pertussis DNA PCR Nasal C.pneumoniae (PCR) Cj Human Metapneumo PCR Nasal M.pneumoniae (PCR) Nasal SARS-CoV-2 (PCR) Blood Type Antibody Screen Antibody Identification MIQUEL, IgG Specific MIQUEL, Polyspecific MIQUEL, C3d Specific Crossmatch Crossmatch IS Only 02/16/24 02/16/24 02/16/24 19:24 20:09 20:10 WBC RBC Hgb Hct MCV MCH MCHC RDW Plt Count MPV Neut # (Auto) Lymph # (Auto) Galax # (Auto) Eos # (Auto) Baso # (Auto) Absolute Nucleated RBC Nucleated RBC % Sodium Potassium Chloride Carbon Dioxide Anion Gap BUN Creatinine Estimated GFR (MDRD) Glucose Lactic Acid 2.5 H Calcium Magnesium Total Bilirubin AST ALT Alkaline Phosphatase Troponin I High Sens Total Protein Albumin Globulin Albumin/Globulin Ratio Lipase Urine Color YELLOW Urine Clarity HAZY Urine pH 5.5 Ur Specific Gunter >=1.030 H Urine Protein NEGATIVE Urine Glucose (UA) NEGATIVE Urine Ketones TRACE Urine Occult Blood NEGATIVE Urine Nitrite NEGATIVE Urine Bilirubin NEGATIVE Urine Urobilinogen 0.2 (NORMAL) Ur Leukocyte Esterase MODERATE H Urine RBC 0-5 Urine WBC >25 H Ur Squamous Epith Cells FEW Squamous Urine Bacteria Few Urine Casts 6-10 Hyaline Casts Ur Microscopic Review INDICATED Urine Culture Comments INDICATED Nasal Adenovirus (PCR) Nasal B. parapertussis DNA (PCR) Nasal Coronavir 229E PCR Nasal Coronavir HKU1 PCR Nasal Coronavir NL63 PCR Nasal Coronavir OC43 PCR Nasal Enterovir/Rhinovir PCR Nasal Influenza B PCR Nasal Influenza A PCR Nasal Parainfluen 1 PCR Nasal Parainfluen 2 PCR Nasal Parainfluen 3 PCR Nasal Parainfluen 4 PCR Nasal RSV (PCR) Nasal B.pertussis DNA PCR Nasal C.pneumoniae (PCR) Cj Human Metapneumo PCR Nasal M.pneumoniae (PCR) Nasal SARS-CoV-2 (PCR) Blood Type O POSITIVE Antibody Screen POSITIVE Antibody Identification Inconclusive MIQUEL, IgG Specific Not Reportable MIQUEL, Polyspecific NEGATIVE MIQUEL, C3d Specific Not Reportable Crossmatch See Detail Crossmatch IS Only See Detail 02/17/24 02/17/24 01:04 02:28 WBC RBC Hgb Hct MCV MCH MCHC RDW Plt Count MPV Neut # (Auto) Lymph # (Auto) Galax # (Auto) Eos # (Auto) Baso # (Auto) Absolute Nucleated RBC Nucleated RBC % Sodium Potassium Chloride Carbon Dioxide Anion Gap BUN Creatinine Estimated GFR (MDRD) Glucose Lactic Acid Calcium Magnesium Total Bilirubin AST ALT Alkaline Phosphatase Troponin I High Sens 6.7 Total Protein Albumin Globulin Albumin/Globulin Ratio Lipase Urine Color Urine Clarity Urine pH Ur Specific Gunter Urine Protein Urine Glucose (UA) Urine Ketones Urine Occult Blood Urine Nitrite Urine Bilirubin Urine Urobilinogen Ur Leukocyte Esterase Urine RBC Urine WBC Ur Squamous Epith Cells Urine Bacteria Urine Casts Ur Microscopic Review Urine Culture Comments Nasal Adenovirus (PCR) NOT DETECTED Nasal B. parapertussis DNA (PCR) NOT DETECTED Nasal Coronavir 229E PCR NOT DETECTED Nasal Coronavir HKU1 PCR NOT DETECTED Nasal Coronavir NL63 PCR NOT DETECTED Nasal Coronavir OC43 PCR NOT DETECTED Nasal Enterovir/Rhinovir PCR NOT DETECTED Nasal Influenza B PCR NOT DETECTED Nasal Influenza A PCR NOT DETECTED Nasal Parainfluen 1 PCR NOT DETECTED Nasal Parainfluen 2 PCR NOT DETECTED Nasal Parainfluen 3 PCR NOT DETECTED Nasal Parainfluen 4 PCR NOT DETECTED Nasal RSV (PCR) NOT DETECTED Nasal B.pertussis DNA PCR NOT DETECTED Nasal C.pneumoniae (PCR) NOT DETECTED Cj Human Metapneumo PCR NOT DETECTED Nasal M.pneumoniae (PCR) NOT DETECTED Nasal SARS-CoV-2 (PCR) NOT DETECTED Blood Type Antibody Screen Antibody Identification MIQUEL, IgG Specific MIQUEL, Polyspecific MIQUEL, C3d Specific Crossmatch Crossmatch IS Only - Rads (name of study) CTA chest Relevant Findings:: Final report received, See rad report (Negative) PD Medical Decision Making - ED course Complexity details: reviewed results, re-evaluated patient, considered differential, d/w patient ED course: The patient was worked up in the emergency department with labs, EKG, urinalysis, and ultimately, CT angiogram of the chest. She was given a liter of IV fluid as a bolus without significant change in her heart rate. She remained in sinus tachycardia from the 1 teens to the 120s. I had noted her to be orthostatic on exam, with her heart rate jumping from the mid 1 teens to the mid 120s when I sat her up to examine her lungs. The patient just appeared somewhat unwell. She was noted to have a lactic acid level of 2.5 and a mildly positive urinalysis. For this she was started on antibiotics. The patient also had dropped her hemoglobin from over 11-8.8 and just a few weeks and the acuity of this was unclear. Her guaiac test was negative at bedside by my interpretation. I did feel she should be transfused, given her syncope, feeling of unwellness, and significant hemoglobin drop in the last couple of weeks, and I did order 2 units of blood for her. However, the blood bank called back and said that the patient had special antibodies and would need special matching so the blood would have to be ordered from [place] and would not be available right away. I did speak with Dr. Herman of the telehospitalist service and she did agree to admit the patient to her service. For now, patient was to be admitted to the floor, as her blood pressures had been normal throughout her stay in the emergency department. Departure - Departure Disposition: [facility] DC/Xfer Clinical Impression: Symptomatic anemia, UTI (urinary tract infection), Sepsis Condition: Serious Discharge Date/Time: 02/17/24 03:05
--- NOTE | 2024-02-17 02:19 | HISTORY & PHYSICAL EXAMINATION ---
Chief Complaint - Chief Complaint Chief Complaint: Dizziness History of Present Illness - Admitted From Admitted From:: ER - History Obtained From Records Reviewed: Yes History obtained from: Patient, staff, chart Exam Limitations: Virtual exam - History of Present Illness HPI Comment/Other: H&P was conducted via video remotely, using Access Cart. Patient is in [place]. Physician is in [place]. No one is at bedside. 79 yo F with PMH of PUD, HTN, HLD, Hypothyroidism, Depression/Anxiety presented to the ER with c/o 2 week h/o Dizziness. Pt has a h/o PUD dx'd 3 years ago. She did not F/u with GI after EGD with diagnosis. In 06/2023, she presented to the ER with melena. She was stable and D/C'd home with instructions sto F/u with GI. She did not F/U. Pt noticed black stool again for a few days about 2 weeks ago. This resolved spontaneously, but then she began to feel dizzy/light-headed/weak, and this has progressively worsened x 2 weeks. Dizziness worse with standing up. +nausea/no vomiting/no abdo pain. Decreased PO intake. Yesterday, she was sitting in her recliner, she felt dizzy and she passed out x few minutes. Pt has been taking Advil QD PRN for her shoulder pain; she broke her R shoulder 1.5 years ago. She drinks ETOH 1-2 glasses of wine/day. No CP/SOB/cough. No dysuria/urinary urgency, +subj F/C/sweats. In the ER, HR 120s-118 s/p IVF, WBC 11.4, Hgb 8.8, MCV 104.5, Na 128, Glc 142, Mg 1.6, Lactate 2.5, U/A: +LE WBC Chest CTA: no PE PRBC 1 unit was ordered, but pt has antibody/issues with blood; PRBC ordered from [facility] and it will arrive in the AM. Pt was given IVF, Xanax, Dilaudid, Levofloxacin in the ER. History - Past Medical History Cardiovascular: reports: Hypertension, High cholesterol Neuro: reports: Dementia Endocrine/Autoimmune: reports: HyPOthyroidism Psych: reports: Depression, Anxiety MRSA Hx?: No Meds/Allgy - Home Medications Home Medications: Ambulatory Orders Medication Instructions Recorded Confirmed Gabapentin [Neurontin] 300 mg PO DAILY 04/03/21 02/16/24 Levothyroxine [Synthroid] 25 mcg PO DAILY 04/03/21 02/16/24 Lipase/Protease/Amylase [Creon Dr 5 cap PO DAILY 04/03/21 02/16/24 12,000 Units Capsule] Metoprolol Succinate [Toprol Xl] 50 mg PO DAILY 04/03/21 02/16/24 Ondansetron Odt [Zofran] 4 mg TL Q6H PRN #10 tablet 01/22/24 02/16/24 Magnesium Oxide [Mag Ox] 400 mg PO DAILY 02/16/24 02/16/24 Multivitamin 1 each PO DAILY 02/16/24 02/16/24 lisinopriL [Lisinopril] 20 mg PO DAILY 02/16/24 02/16/24 - Allergies Allergies/Adverse Reactions: Allergies Allergy/AdvReac Type Severity Reaction Status Date / Time cefazolin Allergy Unknown Verified 02/16/24 19:09 codeine Allergy Unknown Verified 02/16/24 19:09 latex Allergy Unknown Verified 02/16/24 19:09 Penicillins Allergy Unknown Verified 02/16/24 20:57 Sulfa (Sulfonamide Allergy Unknown Verified 02/16/24 19:09 Antibiotics) Review of Systems - All Other Systems All Other Systems: reports: Reviewed and negative Exam - Vital Signs Reviewed Vital Signs: Yes Vital Signs: Vital Signs x48h Temp Pulse Resp BP Pulse Ox 02/17/24 01:00 117 H 18 124/85 H 99 02/16/24 23:00 122 H 19 109/83 H 100 02/16/24 21:25 115 H 20 135/83 H 100 02/16/24 20:32 110 H 24 164/86 H 100 02/16/24 20:23 117 H 22 136/87 H 100 02/16/24 19:09 36.5 C 118 H 16 111/60 98 - Physical Exam General Appearance: positive: No acute distress, Alert Eyes Bilateral: positive: EOMI, No scleral icterus ENT: positive: Dry mucous membranes Respiratory: positive: Other (Access cart stethoscope not working; per ER Provider: CTA B/L) Cardiovascular: positive: Other (Access cart stethoscope not working; per ER Provider: RR, Tachy, no murmurs) Abdomen: positive: Other (per ER Provider: non-distended, NT, Soft) Extremities: positive: Other (per ER Provider: moves all extrem, no edema) Neurologic/Psychiatric: positive: Oriented x3, Mood/affect nml, Other (normal speech, cooperative; per ER Provider: NFD) Conclusion/Plan - Problem List (1) Syncope Conclusion/Plan: Syncope Dizziness Orthostatic Tachycardia -HR 120s-118 s/p IVF -Chest CTA: no PE -Pt was given IVF in the ER. -most likely d/t hypovolemia + symptomatic anemia -admit to Med tele -continue IVF Anemia, macrocytic H/o PUD Recent melena -Hgb 8.8, MCV 104.5 -PRBC 1 unit was ordered, but pt has antibody/issues with blood; PRBC ordered from [facility] and it will arrive in the AM. -continue 1U PRBC txn ordered by ER; special order from [facility] to arrive in AM -H/H q6h -Protonix 40 mg IV daily -check iron studies, B12/Folate -pt will need further counselling on avoiding ETOH and NSAIDs -anti-emetics PRN -currently Guaiac neg per ER findings -consider General Surgery consult if pt rebleeds or H/H drops -will need outpt GI consult Hyponatremia -Na 128 -Pt was given IVF in the ER. -most likely d/t decreased PO intake/dehydration -continue IVF -hold home medication: Lisinopril UTI Leukocytosis Lactic Acidosis -WBC 11.4, Lactate 2.5, U/A: +LE WBC -Pt was given IVF, Levofloxacin in the ER. -continue IVF, LVQ -F/U UC Hyperglycemia -Glc 142 -check Hgba1c Low Magnesium -Mg 1.6 -supplement now and PRN HTN HLD -continue home medications: Metoprolol -hold home medications: Lisinopril d/t Hyponatremia Hypothyroidism -continue home medications: Levothyroxine -check TSH VTE Prophylaxis: SCDs only d/t anemia Code Status: D/W pt; she is Full Code ~April Herman MD Hospitalist - Lab Results Lab results reviewed: Yes Fish Bones: 02/16/24 19:24 02/16/24 19:24
[2024-02-17] MEDS ORDERED: ONDANSETRON ODT 4 MG TABLET TL PRN (02:39)
[2024-02-17] MEDS: cefTRIAXone 2 GM in SODIUM CHLORIDE 0.9% MINIBAG 100 ML IV STA (03:01)
[2024-02-17] MEDS: levoFLOXacin 500 MG/100 ML 500 MG/100 ML BAG IV STA (03:06)
[2024-02-17 03:33] LABS: CORONAVIRUS 229E-RESP PCR NOT DETECTED; CORONAVIRUS HKU1-RESP PCR NOT DETECTED; CORONAVIRUS NL63-RESP PCR NOT DETECTED; CORONAVIRUS OC43-RESP PCR NOT DETECTED; HUMAN METAPNEUMOVIRUS NOT DETECTED; INFLUENZA A- RESP PCR PANEL NOT DETECTED; INFLUENZA B - RESP PCR PANEL NOT DETECTED; PARAINFLUENZA VIRUS 1 NOT DETECTED; PARAINFLUENZA VIRUS 2 NOT DETECTED; PARAINFLUENZA VIRUS 3 NOT DETECTED; RHINOVIRUS/ENTEROVIRUS NOT DETECTED; SARS-CoV-2 -RESP PCR PANEL NOT DETECTED
[2024-02-17 03:34] LABS: B. PARAPERTUSSIS- RESP PCR PAN NOT DETECTED; B. PERTUSSIS- RESP PCR PANEL NOT DETECTED; C. PNEUMONIAE- RESP PCR PANEL NOT DETECTED; M. PNEUMONIAE- RESP PCR PANEL NOT DETECTED; PARAINFLUENZA VIRUS 4 NOT DETECTED; RSV- RESP PCR PANEL NOT DETECTED
[2024-02-17] MEDS: SODIUM CHLORIDE 0.9% 1,000 ML IV SCH (04:26)
[2024-02-17] MEDS: SODIUM CHLORIDE FLUSH 0.9% 10 ML SYRINGE IVP SCH (04:29)
[2024-02-17] MEDS ORDERED: DEXTROSE 40% GEL 37.5 GM TUBE PO ONE (06:07)
[2024-02-17 07:02] LABS: BASOPHILS % (AUTO) 0.3 %; EOSINOPHILS % (AUTO) 0.1 %; LYMPHOCYTES % (AUTO) 21.4 %; MEAN CORPUSCULAR HEMOGLOBIN 33.3 pg (27.0-31.0); MEAN CORPUSCULAR HGB CONC 30.9 g/dL (32.0-36.0); MEAN CORPUSCULAR VOLUME 107.9 fL (81.0-99.0); MEAN PLATELET VOLUME 11.2 fL (7.9-10.8); MONOCYTES # (AUTO) 0.7 10^3/uL (0.0-1.0); MONOCYTES % (AUTO) 7.9 %; NEUTROPHILS # (AUTO) 6.4 10^3/uL (1.5-6.6); NEUTROPHILS % (AUTO) 69.9 %; NRBC ABSOLUTE COUNT (AUTO) 0.02 x10^3/uL; NUCLEATED RED BLOOD CELLS AUTO 0.2 /100WBC; PLT - PLATELET COUNT 137 10^3/uL (130-450); RED BLOOD COUNT 1.77 10^6/uL (4.20-5.40); RED CELL DISTRIBUTION WIDTH 16.7 % (12.0-15.0); WHITE BLOOD COUNT 9.1 x10^3/uL (4.8-10.8)
[2024-02-17 07:12] LABS: HCT - HEMATOCRIT 19.1 % (37.0-47.0); HGB - HEMOGLOBIN 5.9 g/dL (12.0-16.0)
[2024-02-17 07:18] LABS: MAGNESIUM 1.8 mg/dL (1.7-2.3)
[2024-02-17 07:26] LABS: CALCIUM 7.7 mg/dL (8.5-10.3); CREATININE 0.6 mg/dL (0.6-1.3); POTASSIUM 4.3 mmol/L (3.5-4.5)
[2024-02-17] MEDS: SODIUM CHLORIDE 0.9% 500 ML IV ONE ×2 (08:23→15:04)
[2024-02-17 08:28] LABS: THYROID STIMULATING HORMONE 2.95 uIU/mL (0.34-5.60)
[2024-02-17] MEDS ORDERED: METOPROLOL SUCCINATE 50 MG TABLET PO SCH (09:00)
[2024-02-17] MEDS ORDERED: PANTOPRAZOLE 40 MG VIAL IV SCH (09:00)
[2024-02-17] MEDS ORDERED: [UNRECOGNIZED DRUG - OTHER] PO SCH (09:00)
[2024-02-17] MEDS: ACETAMINOPHEN 325 MG TABLET PO PRN (09:04)
[2024-02-17] MEDS: GABAPENTIN 300 MG CAPSULE PO SCH (09:04)
[2024-02-17] MEDS: MULTIVITAMIN TABLET PO SCH (09:04)
[2024-02-17] MEDS: MAGNESIUM OXIDE 400 MG TABLET PO SCH (09:04)
[2024-02-17] MEDS: LEVOTHYROXINE 25 MCG TABLET PO SCH (09:04)
[2024-02-17] MEDS: PROCHLORPERAZINE 10 MG/2 ML VIAL IVP PRN (09:13)
[2024-02-17] MEDS: methylPREDNISolone SUCCINATE 125 MG/2 ML VIAL IVP STA (09:28)
[2024-02-17] MEDS: diphenhydrAMINE 25 MG CAPSULE PO STA (09:28)
[2024-02-17] MEDS: ACETAMINOPHEN 325 MG TABLET PO STA (09:29)
[2024-02-17] MEDS: PANTOPRAZOLE 40 MG VIAL IV SCH (09:33)
[2024-02-17 10:12] LABS: ESTIMATED AVERAGE GLUCOSE 80 mg/dL (70-100); HEMOGLOBIN A1c% 4.4 % (4.27-6.07)
--- NOTE | 2024-02-17 11:45 | PHARMACY PROGRESS NOTE ---
- Best Possible Medication History Admit Date and Time: 02/17/24 0241 Processed by: Pharmacy Medications reviewed in ED?: Yes Medication History completed: Yes Patient Interview: Completed Secondary Source(s): Insurance records, Facility MAR as ONLY source As the person ultimately responsible for medication therapy, providers are able to order a medication from an existing home medication list in [facility] via the "Reconcile Routine" prior to Confirmation of that medication by patient support assistant. Such practice is discouraged except when the physician, in their clinical judgment, deems that a medical need exists for a medication without regard to previous use.
[2024-02-17] MEDS: LIPASE/PROTEASE/AMYLASE CAPSULE PO SCH (15:03)
[2024-02-17 15:13] LABS: HCT - HEMATOCRIT 26.7 % (37.0-47.0); HGB - HEMOGLOBIN 8.9 g/dL (12.0-16.0)
--- NOTE | 2024-02-17 15:20 | PROVIDER PROGRESS NOTE ---
Assessment/Plan - Problem List (1) GI bleed Assessment/Plan: The patient had reported melena prior to admission. She has a history of heavy alcohol use. She also has a history of PUD and was lost to follow up. She is stabilizing now. Will place a consult to General surgery for consideration of upper endoscopy. She is on IV protonix 40 mg twice daily. She will remain NPO except for medication and sips and chips (2) Acute blood loss anemia Assessment/Plan: The patients HGB dropped 3g after admission. This morning she was hypotensive, pale, clammy and somewhat confused. Her care was escalated to the ICU. At the time of this dictation she has received 1 unit of packed red blood cells. Her hemoglobin is responding appropriately. She will receive 1 more unit for now. Will go ahead and consult general surgery for consideration of upper endoscopy tomorrow. She will remain NPO. She has additional units typed and crossmatched in the event that her hemoglobin drops again. Blood pressure has improved and she is hemodynamically stable at this point.2 units of PRBC's were ordered. There was a delay in getting the blood due to antibodies, however the blood fortunately was available in time. (3) Lactic acidosis Assessment/Plan: The patient's lactic acid level on admission was 2.5 and is risen to 3.4. She has received IV fluid boluses today and blood. Will repeat a stat lactic acid level for now. She may require further imaging of the abdomen. If possible we will wait until tomorrow or at least until after she finishes receiving her blood prior to ordering this. Blood pressure is stable and the patient seems to be improving (4) UTI (urinary tract infection) Assessment/Plan: The patient has allergies to cephalosporins and penicillin. She was placed on Levaquin which will be continued. Urine culture and sensitivities are pending. This is the first full day of treatment. (5) Acute metabolic encephalopathy Assessment/Plan: When I saw the patient this morning she told me that she could not think straight. Nursing staff reported confusion and the patient was quite lethargic. This is likely multifactorial in nature secondary to her acute blood loss anemia as well as underlying urinary tract infection. Hopefully this will improve after she receives blood and further treatment for her urinary tract infection (6) Syncope Assessment/Plan: The patient presented to the emergency room with having after having a syncopal episode at her assisted living facility. This was likely due to acute blood loss anemia and her GI bleed. Continue to monitor her quite closely. (7) Alcohol use disorder Assessment/Plan: The patient has a longstanding history of alcoholism. She has had multiple hospitalizations as a result of her alcohol use. She moved into an assisted living facility and was doing better for a period of time. I spoke to her brother Siva Cole who is her healthcare power of employment attorney [phone]. He highly suspects that she has been drinking at the facility. He suspects that she is either having somebody car pick up driver the alcohol for her or having it delivered to her as this is an assisted living facility. Will have [facility] protocol available. At this point there is no signs of any alcohol withdrawal. (8) Hyponatremia Assessment/Plan: Slightly improved. Likely due to her longstanding history of alcohol abuse (9) Hypomagnesemia Assessment/Plan: Repleted and resolved. Her magnesium level is now on the low side of normal. W ill check a magnesium level in the morning. She likely will require further supplementation but will hold off for now. She also likely should transition to p.o. magnesium at some point however due to her n.p.o. status again we will hold off. (10) Hyperglycemia Assessment/Plan: Likely reactive to her GI bleed. She will have a chemistry panel drawn in the morning (11) Sinus tachycardia Assessment/Plan: She will remain on telemetry. This was likely due to her GI bleed. Heart rates got up into the 140s earlier today but currently are sustaining in the low 100s (12) Hypertension Assessment/Plan: The patient was quite hypotensive this morning. All of her blood pressure medications have been held for now. Continue to monitor (13) Hyperlipidemia Assessment/Plan: Currently on no medical therapy (14) Hypothyroid Assessment/Plan: Continue home dose of Synthroid - Current Meds Current Meds: Current Medications Generic Name Dose Route Start Last Admin Trade Name Freq PRN Reason Stop Dose Admin Acetaminophen 650 mg 02/17/24 02:41 02/17/24 09:04 Acetaminophen 325 Mg Tablet PO 650 mg Q4HR PRN Administration Pain 1 to 4, or Fever Lipase/Protease/Amylase 5 cap 02/17/24 16:00 02/17/24 15:03 Lipase/Protease/Amylase Capsule PO Not Given DAILY@1600 NATALEE Gabapentin 300 mg 02/17/24 09:00 02/17/24 09:04 Gabapentin 300 Mg Capsule PO 300 mg DAILY NATALEE Administration Sodium Chloride 1,000 mls @ 100 mls/hr 02/17/24 03:00 02/17/24 04:26 Normal Saline 0.9% IV 100 mls/hr .Q10H NATALEE Administration Levothyroxine Sodium 25 mcg 02/17/24 09:00 02/17/24 09:04 Levothyroxine 25 Mcg Tablet PO 25 mcg DAILY NATALEE Administration Magnesium Oxide 400 mg 02/17/24 09:00 02/17/24 09:04 Magnesium Oxide 400 Mg Tablet PO 400 mg DAILY NATALEE Administration Multivitamins 1 tab 02/17/24 09:00 02/17/24 09:04 Multivitamin Tablet PO 1 tab DAILY NATALEE Administration Pantoprazole Sodium 40 mg 02/17/24 09:00 02/17/24 09:33 Pantoprazole 40 Mg Vial IV 40 mg BID NATALEE Administration Prochlorperazine Edisylate 10 mg 02/17/24 02:41 02/17/24 09:13 Prochlorperazine 10 Mg/2 Ml Vial IVP 10 mg Q6HR PRN Administration Nausea / Vomiting Sodium Chloride 10 ml 02/17/24 09:00 02/17/24 04:29 Sodium Chloride Flush 0.9% 10 Ml Syringe IVP 10 ml 0100,0900,1700 NATALEE Administration - Lab Result Fish Bone Diagrams: 02/17/24 15:06 02/17/24 06:56 - EKG Results EKG Interpreted Independently: Yes - Diagnostic Imaging Results Diagnostic Imaging Results: Final report reviewed - Additional Planning Condition/Complexity: Critical My Orders: My Active Orders 02/17/24 08:45 NPO except Meds [DIET] 02/17/24 09:05 Miscellaenous Nursing Order [RC] ONCE 02/17/24 09:08 Miscellaenous Nursing Order [RC] ONCE Consult/Specialty: Surgery (For consideration of upper endoscopy) Plan Discussed with:: Patient, Family, Power of Resource Agent Time Spent: Greater than 60 minutes Subjective - Subjective Patient Reports: Dizzines, Nausea, Shortness of Breath Nursing Reports: Confused, Shortness of Breath, Other (When I arrived on the floor this morning nursing staff reported that the patient had become hypotensive, was pale, clammy and poorly responsive. Repeat hemoglobin revealed 3 g drop. Blood was ordered however there was a delay in receiving the blood as she had developed antibodies. When I went to) Objective Vital Signs: Vital Signs - 24 hr 02/16/24 02/16/24 02/16/24 19:09 20:23 20:32 Temperature 36.5 C Heart Rate 118 H 117 H 110 H Heart Rate [ Brachial] Respiratory 16 22 24 Rate Blood Pressure 111/60 136/87 H 164/86 H Blood Pressure [Left Brachial artery] Blood Pressure [Right Brachial artery] O2 Saturation 98 100 100 If not protocol : Oxygen Flow, liters/minute 02/16/24 02/16/24 02/17/24 21:25 23:00 01:00 Temperature Heart Rate 115 H 122 H 117 H Heart Rate [ Brachial] Respiratory 20 19 18 Rate Blood Pressure 135/83 H 109/83 H 124/85 H Blood Pressure [Left Brachial artery] Blood Pressure [Right Brachial artery] O2 Saturation 100 100 99 If not protocol : Oxygen Flow, liters/minute 02/17/24 02/17/24 02/17/24 02:00 03:25 06:05 Temperature 36.6 C 36.3 C L Heart Rate 106 H Heart Rate [ 113 H 104 H Brachial] Respiratory 15 18 Rate Blood Pressure 134/93 H Blood Pressure 141/85 H 96/70 [Left Brachial artery] Blood Pressure [Right Brachial artery] O2 Saturation 99 99 100 If not protocol : Oxygen Flow, liters/minute 02/17/24 02/17/24 02/17/24 06:10 06:14 06:22 Temperature Heart Rate Heart Rate [ 120 H 62 130 H Brachial] Respiratory Rate Blood Pressure Blood Pressure 93/72 122/81 H 108/74 [Left Brachial artery] Blood Pressure [Right Brachial artery] O2 Saturation 78 L 88 L 99 If not protocol : Oxygen Flow, liters/minute 02/17/24 02/17/24 02/17/24 06:35 06:36 07:43 Temperature 36.3 C L Heart Rate Heart Rate [ 118 H 119 H 112 H Brachial] Respiratory 16 16 Rate Blood Pressure Blood Pressure 99/67 103/69 108/65 [Left Brachial artery] Blood Pressure [Right Brachial artery] O2 Saturation 96 99 If not protocol : Oxygen Flow, liters/minute 02/17/24 02/17/2424 10:30 10:44 10:59 Temperature 37.0 C 37 C 37.2 C Heart Rate Heart Rate [ 134 H 136 H 151 H Brachial] Respiratory 25 H 25 H 22 Rate Blood Pressure Blood Pressure 145/80 H 145/80 H [Left Brachial artery] Blood Pressure 155/95 H [Right Brachial artery] O2 Saturation 99 96 If not protocol : Oxygen Flow, liters/minute 02/17/24 02/17/24 02/17/24 11:24 12:00 13:00 Temperature 36.8 C Heart Rate Heart Rate [ 128 H 110 H 106 H Brachial] Respiratory 24 20 18 Rate Blood Pressure Blood Pressure [Left Brachial artery] Blood Pressure 125/81 H 111/57 L 104/69 [Right Brachial artery] O2 Saturation 100 98 98 If not protocol 98 : Oxygen Flow, liters/minute 02/17/24 02/17/24 14:00 14:48 Temperature 36.9 C 98.1 C H Heart Rate Heart Rate [ 106 H 109 H Brachial] Respiratory 15 19 Rate Blood Pressure Blood Pressure [Left Brachial artery] Blood Pressure 139/70 H 153/96 H [Right Brachial artery] O2 Saturation 98 99 If not protocol : Oxygen Flow, liters/minute Oxygen O2 Source Room air I&O (Last 24 Hrs): Intake and Output Totals x24h 02/15/24 02/16/24 02/17/24 23:59 23:59 23:59 Intake Total 500 920 Output Total 0 Balance 500 920 General: Other (The patient is lethargic.) HEENT: Atraumatic Neck: Supple Lymphatic: no adenopathy Neuro: Disoriented Cardiovascular: Regular rate, Normal S1, Normal S2, No murmurs, Other (Tachycardic) Respiratory: Chest non-tender Abdomen: Normal bowel sounds, Soft - Results Results: Laboratory Results WBC 9.1 x10^3/uL (4.8-10.8) 02/17/24 06:56 RBC 1.77 10^6/uL (4.20-5.40) L 02/17/24 06:56 Hgb 8.9 g/dL (12.0-16.0) L 02/17/24 15:06 Hct 26.7 % (37.0-47.0) L 02/17/24 15:06 MCV 107.9 fL (81.0-99.0) H 02/17/24 06:56 MCH 33.3 pg (27.0-31.0) H 02/17/24 06:56 MCHC 30.9 g/dL (32.0-36.0) L 02/17/24 06:56 RDW 16.7 % (12.0-15.0) H 02/17/24 06:56 Plt Count 137 10^3/uL (130-450) 02/17/24 06:56 MPV 11.2 fL (7.9-10.8) H 02/17/24 06:56 Neut # (Auto) 6.4 10^3/uL (1.5-6.6) 02/17/24 06:56 Lymph # (Auto) 2.0 10^3/uL (1.5-3.5) 02/17/24 06:56 Prentiss # (Auto) 0.7 10^3/uL (0.0-1.0) 02/17/24 06:56 Eos # (Auto) 0.0 10^3/uL (0.0-0.7) 02/17/24 06:56 Baso # (Auto) 0.0 10^3/uL (0.0-0.1) 02/17/24 06:56 Absolute Nucleated RBC 0.02 x10^3/uL 02/17/24 06:56 Nucleated RBC % 0.2 /100WBC 02/17/24 06:56 D-Dimer 201.5 ng/mL (200.0-255.0) 02/17/24 07:30 Sodium 130 mmol/L (135-145) L 02/17/24 06:56 Potassium 4.3 mmol/L (3.5-4.5) 02/17/24 06:56 Chloride 102 mmol/L (101-111) 02/17/24 06:56 Carbon Dioxide 17 mmol/L (21-32) L 02/17/24 06:56 Anion Gap 11.0 (6-13) 02/17/24 06:56 BUN 42 mg/dL (6-20) H 02/17/24 06:56 Creatinine 0.6 mg/dL (0.6-1.3) 02/17/24 06:56 Estimated GFR (MDRD) 97 (>89) 02/17/24 06:56 Glucose 153 mg/dL (74-104) H 02/17/24 06:56 POC Whole Bld Glucose 158 mg/dL (70 - 100) H 02/17/24 06:20 Estimat Average Glucose 80 mg/dL (70-100) 02/17/24 07:30 Hemoglobin A1c % 4.4 % (4.27-6.07) 02/17/24 07:30 Lactic Acid 3.4 mmol/L (0.5-2.2) H* 02/17/24 07:30 Calcium 7.7 mg/dL (8.5-10.3) L 02/17/24 06:56 Magnesium 1.8 mg/dL (1.7-2.3) 02/17/24 06:56 Iron 94 ug/dL (50-212) 02/17/24 06:56 TIBC 283 ug/dL (250-450) 02/17/24 06:56 % Saturation 33 % (20-50) 02/17/24 06:56 Transferrin 202 mg/dL (203-362) L 02/17/24 06:56 Total Bilirubin 0.4 mg/dL (0.2-1.0) 02/16/24 19:24 AST 18 IU/L (10-42) 02/16/24 19:24 ALT 23 IU/L (10-60) 02/16/24 19:24 Alkaline Phosphatase 57 IU/L (42-121) 02/16/24 19:24 Troponin I High Sens 5.5 ng/L (2.3-14.8) 02/17/24 06:56 B-Natriuretic Peptide 34 pg/mL (5-100) 02/17/24 07:30 Total Protein 5.6 g/dL (6.4-8.9) L 02/16/24 19:24 Albumin 3.4 g/dL (3.2-5.5) 02/16/24 19:24 Globulin 2.2 g/dL (2.1-4.2) 02/16/24 19:24 Albumin/Globulin Ratio 1.5 (1.0-2.2) 02/16/24 19:24 Lipase < 10 U/L (11-82) L 02/16/24 19:24 Vitamin B12 155 pg/mL (180-914) L 02/17/24 06:56 Folate 23.2 ng/mL (5.90 - >24.8) 02/17/24 06:56 TSH 2.95 uIU/mL (0.34-5.60) 02/17/24 06:56 Urine Color YELLOW 02/16/24 20:10 Urine Clarity HAZY (CLEAR) 02/16/24 20:10 Urine pH 5.5 PH (5.0-7.5) 02/16/24 20:10 Ur Specific [place] >=1.030 (1.002-1.030) H 02/16/24 20:10 Urine Protein NEGATIVE mg/dL (NEGATIVE) 02/16/24 20:10 Urine Glucose (UA) NEGATIVE mg/dL (NEGATIVE) 02/16/24 20:10 Urine Ketones TRACE mg/dL (NEGATIVE) 02/16/24 20:10 Urine Occult Blood NEGATIVE (NEGATIVE) 02/16/24 20:10 Urine Nitrite NEGATIVE (NEGATIVE) 02/16/24 20:10 Urine Bilirubin NEGATIVE (NEGATIVE) 02/16/24 20:10 Urine Urobilinogen 0.2 (NORMAL) E.U./dL (NORMAL) 02/16/24 20:10 Ur Leukocyte Esterase MODERATE (NEGATIVE) H 02/16/24 20:10 Urine RBC 0-5 /HPF (0-5) 02/16/24 20:10 Urine WBC >25 /HPF (0-5) H 02/16/24 20:10 Ur Squamous Epith Cells FEW Squamous (<= Few) 02/16/24 20:10 Urine Bacteria Few /HPF (None Seen) 02/16/24 20:10 Urine Casts 6-10 Hyaline Casts /LPF 02/16/24 20:10 Ur Microscopic Review INDICATED 02/16/24 20:10 Urine Culture Comments INDICATED 02/16/24 20:10 Nasal Adenovirus (PCR) NOT DETECTED 02/17/24 02:28 Nasal B. parapertussis DNA (PCR) NOT DETECTED 02/17/24 02:28 Nasal Coronavir 229E PCR NOT DETECTED 02/17/24 02:28 Nasal Coronavir HKU1 PCR NOT DETECTED 02/17/24 02:28 Nasal Coronavir NL63 PCR NOT DETECTED 02/17/24 02:28 Nasal Coronavir OC43 PCR NOT DETECTED 02/17/24 02:28 Nasal Enterovir/Rhinovir PCR NOT DETECTED 02/17/24 02:28 Nasal Influenza B PCR NOT DETECTED 02/17/24 02:28 Nasal Influenza A PCR NOT DETECTED 02/17/24 02:28 Nasal Parainfluen 1 PCR NOT DETECTED 02/17/24 02:28 Nasal Parainfluen 2 PCR NOT DETECTED 02/17/24 02:28 Nasal Parainfluen 3 PCR NOT DETECTED 02/17/24 02:28 Nasal Parainfluen 4 PCR NOT DETECTED 02/17/24 02:28 Nasal RSV (PCR) NOT DETECTED 02/17/24 02:28 Nasal Screen MRSA (PCR) NEGATIVE (NEGATIVE) 02/17/24 10:50 Nasal B.pertussis DNA PCR NOT DETECTED 02/17/24 02:28 Nasal C.pneumoniae (PCR) NOT DETECTED 02/17/24 02:28 Cj Human Metapneumo PCR NOT DETECTED 02/17/24 02:28 Nasal M.pneumoniae (PCR) NOT DETECTED 02/17/24 02:28 Nasal SARS-CoV-2 (PCR) NOT DETECTED 02/17/24 02:28 Blood Type O POSITIVE 02/16/24 20:09 Antibody Screen POSITIVE 02/16/24 20:09 Antibody Identification Inconclusive 02/16/24 20:09 MIQUEL, IgG Specific Not Reportable 02/16/24 20:09 MIQUEL, Polyspecific NEGATIVE 02/16/24 20:09 MIQUEL, C3d Specific Not Reportable 02/16/24 20:09 Crossmatch See Detail 02/16/24 20:09 Crossmatch IS Only See Detail 02/16/24 20:09 Sepsis Event Note (H) - Evaluation Current Stage of Sepsis: Ruled out ABX Reporting Has patient been on IV antibiotics over the past 48 hours?: Yes Current Medications - Current Medications Current Medications: Acetaminophen 650 mg p.o. every 4 hours as needed Multivitamin daily Gabapentin 300 mg daily Levaquin 500 mg IV every 24 hours Synthroid 25 mcg daily lipase/protease/amylase 5 mg p.o. daily CIWA protocol Magnesium oxide 400 mg p.o. daily Multivitamin p.o. daily Zofran 4 mg oral disintegrating tablet every 6 hours as needed Protonix 40 mg IV twice daily Thiamine 100 mg p.o. daily
--- NOTE | 2024-02-17 18:17 | CONSULTATION NOTE ---
Surgery Consult - Admit Date Hospital Admission Date: 02/17/24 - Home Meds/Allergies Home Medications: Patient History Medication Instructions Recorded Confirmed Gabapentin [Neurontin] 300 mg PO DAILY 04/03/21 02/16/24 Levothyroxine [Synthroid] 25 mcg PO DAILY 04/03/21 02/16/24 Lipase/Protease/Amylase [Kim [place]she[place] 5 cap PO DAILY 04/03/21 02/16/24 12,000 Units Capsule] Metoprolol Succinate [Toprol Xl] 50 mg PO DAILY 04/03/21 02/16/24 Magnesium Oxide [Mag Ox] 400 mg PO DAILY 02/16/24 02/16/24 Multivitamin 1 each PO DAILY 02/16/24 02/16/24 lisinopriL [Lisinopril] 20 mg PO DAILY 02/16/24 02/16/24 Allergies/Adverse Reactions: Allergies Allergy/AdvReac Type Severity Reaction Status Date / Time cefazolin Allergy Unknown Verified 02/16/24 19:09 codeine Allergy Unknown Verified 02/16/24 19:09 latex Allergy Unknown Verified 02/16/24 19:09 Penicillins Allergy Unknown Verified 02/16/24 20:57 Sulfa (Sulfonamide Allergy Unknown Verified 02/16/24 19:09 Antibiotics) - Vital Signs Vital Signs: Last Vital Signs Temp 99.9 F 02/17/24 15:56 Pulse 126 H 02/17/24 17:00 Resp 20 02/17/24 17:00 BP 173/75 H 02/17/24 17:00 Pulse Ox 100 02/17/24 17:00 O2 Flow Rate 98 02/17/24 13:00 Intake & Output: Intake & Output 02/14/24 02/15/24 02/16/24 02/17/24 23:59 23:59 23:59 23:59 Intake Total 500 1626 Output Total 400 Balance 500 1226 - Lab Results Result Diagrams: 02/17/24 15:06 02/17/24 06:56 - Consultation Note Consultation Note: General Surgery Consultation Note Assessment: 1) Anemia due to recent 5 day episode of melena likely due to NSAID induced gastric or duodenal ulcer. The patient is responding to blood product infusions and does not appear to be actively bleeding. Recommendation: 1) Continue transfusions to keep Hgb >8 2) NPO after midnight 3) EGD in am Consent: Miracle has been counseled for the procedure, it's indications, risks, benefits and expected outcome as well as alternative therapies. We specifically discussed risks associated with anesthesia and insertion of the endoscope into the UGI tract which includes bleeding and/or injury to the esophagus which may require surgical intervention. Miracle understands, agrees, and consents to the proposed operative strategy and requests that we proceed with the procedure as outlined in our discussion. <><><><><><><><><><> Reason for Consultation Anemia Chief Complaint dizzy HPI Miracle is a 79 year old female who uses daily Advil for hip pain./ A couple weeks ago she experienced 5-6 days of melena. The melena stopped and she felt depressed and with lack of energy until this morning when she became dizzy and was brought to the ED. A severe anemia was diagnosed and she was transfused PRBC while being monitored in the ICU. She has had no further melena and no hematemesis. She is now hemodynamically stable and receiving her second unit of PRBC. Past Medical History Anxiety, Depression, HTN, Dementia Past Surgical History Lap Corky Current Medications See "Medication" section Allergies See "Allergy" section ROS Pertinent positives Melena, syncope All other reviewed systems negative Physical Examination Vital Signs: See "Vital Signs" section BMI: 27 GENERAL APPEARANCE: Normal development PSYCHIATRIC: AAO; Comfortable, Easily converses with examiner EYES: Pupils equal, round and reactive to light, sclera anicteric EARS, NOSE, MOUTH, THROAT: Hearing normal, Oral mucous membranes moist and wi thout lesions; NECK: No crepitus, lymphadenopathy, or thyromegaly LUNGS: Clear to auscultation without wheezing; No use of accessory muscles to breathe CARDIOVASCULAR: Heart-NSR without murmurs; Palpable carotid arteries - no bruits; Femoral, Pedal pulses palpable; Peripheral edema [] ABD: Soft, non-tender SKIN: Anicteric; No rashes, lesions, Ulcerations Labs See "Labs" section Gautam Mcguire MD, [facility] General Surgery Service [phone]
[2024-02-17 21:19] LABS: HCT - HEMATOCRIT 33.1 % (37.0-47.0); HGB - HEMOGLOBIN 10.7 g/dL (12.0-16.0)
[2024-02-17] MEDS: LORazepam 0.5 MG TABLET PO ONE (23:04)
[2024-02-18] MEDS: levoFLOXacin 500 MG/100 ML 500 MG/100 ML BAG IV SCH (02:55)
[2024-02-18 04:42] LABS: BASOPHILS % (AUTO) 0.1 %; HCT - HEMATOCRIT 28.7 % (37.0-47.0); HGB - HEMOGLOBIN 9.4 g/dL (12.0-16.0); LYMPHOCYTES # (AUTO) 0.8 10^3/uL (1.5-3.5); LYMPHOCYTES % (AUTO) 9.8 %; MEAN CORPUSCULAR HEMOGLOBIN 31.5 pg (27.0-31.0); MEAN CORPUSCULAR HGB CONC 32.8 g/dL (32.0-36.0); MEAN CORPUSCULAR VOLUME 96.3 fL (81.0-99.0); MEAN PLATELET VOLUME 10.9 fL (7.9-10.8); MONOCYTES # (AUTO) 0.4 10^3/uL (0.0-1.0); MONOCYTES % (AUTO) 5.1 %; NEUTROPHILS # (AUTO) 6.7 10^3/uL (1.5-6.6); NEUTROPHILS % (AUTO) 84.4 %; PLT - PLATELET COUNT 94 10^3/uL (130-450); RED BLOOD COUNT 2.98 10^6/uL (4.20-5.40); RED CELL DISTRIBUTION WIDTH 18.6 % (12.0-15.0)
[2024-02-18 04:58] LABS: ALBUMIN 3.2 g/dL (3.2-5.5); BILIRUBIN,DIRECT 0.11 mg/dL (0.03-0.18); BILIRUBIN,TOTAL 0.7 mg/dL (0.2-1.0); CALCIUM 7.9 mg/dL (8.5-10.3); CREATININE 0.6 mg/dL (0.6-1.3); MAGNESIUM 2.1 mg/dL (1.7-2.3); PHOSPHORUS 3.1 mg/dL (2.5-5.0); POTASSIUM 3.7 mmol/L (3.5-4.5); TOTAL PROTEIN 5.3 g/dL (6.4-8.9)
[2024-02-18 05:18] LABS: INR 1.1 (0.8-1.2)
--- NOTE | 2024-02-18 07:07 | PROVIDER PROGRESS NOTE ---
Progress Note General Surgery Progress Note Coni has received 2 units of PRBC and has had an uneventful evening. She remains hemodynamically stabel and her Hgb is 9.4 this morning. I plan to perform EGD this morning around 0800. Coni understands, agrees, and consents to the EGD. Brenden Mcguire MD, FACS General Surgery Service
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
[2024-02-18] MEDS ORDERED: PROPOFOL 200 MG/20 ML VIAL IVP ONE (07:42)
[2024-02-18] MEDS ORDERED: MIDAZOLAM 2 MG/2 ML VIAL ONE (07:42)
[2024-02-18] MEDS ORDERED: LIDOCAINE-MPF 2% 5 ML VIAL ONE (07:42)
--- NOTE | 2024-02-18 08:35 | OPERATIVE REPORT ---
Operative Report - General Admit Date: 02/17/24 - Other Other Information/Narrative: General Surgery Brief Procedure Note (see "Provation" for details) Preop Diagnosis: Anemia, melena Postop Diagnosis: Two 8 mm ulcers in the proximal stomach. A superficial ulcer was located on the mucosa of the Corky wrap. A cratered ulcer (likely the source of her bleed) was located opposite the first ulcer on the mucosa of the cardia. There is no evidence of active bleeding from these ulcerations. No other bleeding sites were identified. Biopsies of thye antrum for HP and of the mucosa about the proximal ulcers were obtained. Procedure: EGD with mucosa biopsy x 2 Recommendation: 1) Avoid gastric irritants 2) PPI for 8-10 weeks 3) Mylanta 30 ml PO Q 6 hrs 4) Advance diet as tolerated 5) Transfuse blood as needed to keep Hgb >8 6) Repeat EGD in 6-8 weeks to assess healing Gautam Mcguire MD, FACS General Surgery Service
[2024-02-18] MEDS: THIAMINE 100 MG TABLET PO SCH (09:09)
[2024-02-18] MEDS: PRENATAL VITAMIN TABLET PO SCH (09:09)
--- NOTE | 2024-02-18 09:28 | ANESTHESIA POST OP EVALUATION ---
Anesthesia Post Eval - Post Anesthesia Eval Vitals: Last Vital Signs Temp 36.9 C 02/18/24 08:23 Pulse 112 H 02/18/24 08:23 Resp 23 02/18/24 08:23 BP 117/71 02/18/24 08:23 Pulse Ox 100 02/18/24 08:23 O2 Flow Rate 98 02/17/24 13:00 CV Function Including HR & BP: Stable Pain Control: Satisfactory Nausea & Vomiting: Negative Mental Status: Baseline Respiratory Status: Airway Patent Hydration Status: Satisfactory Anesthesia Complications: None
[2024-02-18] MEDS ORDERED: MULTIVITAMIN 10 ML, THIAMINE INJ 100 MG, FOLIC ACID INJ 1 MG in SODIUM CHLORIDE 0.9% 1,... IV SCH (12:00)
[2024-02-18] MEDS: MAG HYDROX/AL HYDROX/SIMETH 30 ML UDC PO SCH (12:04)
[2024-02-18] MEDS: HYDROcod/ACETAM 5/325 MG TABLET PO PRN (12:04)
[2024-02-18] MEDS: SODIUM CHLORIDE FLUSH 0.9% 10 ML SYRINGE IVP PRN (12:21)
--- NOTE | 2024-02-18 13:46 | PROVIDER PROGRESS NOTE ---
Subjective - Prog Note Date Prog Note Date: 02/18/24 Prog Note Time: 13:50 - Subjective Pt reports feeling: Improved Subjective: The patient is sitting up in her bed. She is awake alert and oriented today and is feeling much better. She says she has very little recollection of what happened yesterday. Her brother who is her healthcare power of trade mark attorney is at the bedside. The patient was seen by both myself and Dr. Thibodeaux. The plan of care was discussed at length and all of their questions were answered. This morning the patient had an EGD performed by Dr. Mcguire. She was found to have 2 gastric ulcers. One of which was quite large and likely was the source of her bleeding. There was no evidence of active bleeding at the time of endoscopy. The patient does admit that she has been taking a significant amount of ib uprofen several times a day for quite some time due to pain in her shoulders. Today she just denies fever or chills. No chest pain or heart palpitations. She has had no nausea or vomiting. She has a little bit of epigastric abdominal pain. She has not yet had a bowel movement today. No urinary complaints. She does complain of pain in her shoulders and is quite concerned about what she is going to use for the pain now that she cannot take ibuprofen. We did discuss goals of care and updated a POLST form. She previously had been DO NOT RESUSCITATE at her facility. The patient is quite adamant that she would want full resuscitation. A new POLST form was obtained and updated in the [facility] record. Her brother Siva Cole [phone] is her healthcare power of trade mark attorney Current Medications - Current Medications Current Medications: Acetaminophen 650 mg p.o. every 4 hours as needed Multivitamin daily Gabapentin 300 mg daily Levaquin 500 mg IV every 24 hours Synthroid 25 mcg daily lipase/protease/amylase 5 mg p.o. daily CIWA protocol Magnesium oxide 400 mg p.o. daily Multivitamin p.o. daily Zofran 4 mg oral disintegrating tablet every 6 hours as needed Protonix 40 mg IV twice daily Thiamine 100 mg p.o. daily Hydrocodone 5 mg po q6h prn pain Objective - Vital Signs/Intake & Output Reviewed Vital Signs: Yes Vital Signs: Vital Signs x48h Temp Pulse Resp BP Pulse Ox 02/18/24 13:00 109 H 23 169/85 H 99 02/18/24 12:00 36.8 C 112 H 21 166/95 H 100 02/18/24 11:56 177/92 H 02/18/24 11:00 112 H 25 H 170/95 H 100 02/18/24 10:00 111 H 20 164/105 H 100 02/18/24 09:00 110 H 22 164/105 H 100 02/18/24 08:23 36.9 C 112 H 23 117/71 100 02/18/24 07:07 113 H 17 167/94 H 99 02/18/24 07:00 113 H 18 170/97 H 98 02/18/24 06:00 110 H 15 143/70 H 96 Intake & Output: Intake & Output 02/15/24 02/16/24 02/17/24 02/18/24 23:59 23:59 23:59 23:59 Intake Total 500 1626 1811 Output Total 875 500 Balance 949 731 0637 - Objective General Appearance: positive: No acute distress, Alert Eyes Bilateral: positive: Normal inspection ENT: positive: ENT inspection nml Neck: positive: Nml inspection Respiratory: positive: Chest non-tender, No respiratory distress, Breath sounds nml Cardiovascular: positive: No murmur, No gallop, Tachycardia. negative: Friction rub Skin: positive: Color nml, No rash, Warm, Dry Extremities: positive: Non-tender, Full ROM Neurologic/Psychiatric: positive: Oriented x3, CN's nml (2-12) - Lab Results Fish Bones: 02/18/24 04:13 02/18/24 04:13 Other Labs: Lab Results x24hrs 02/18/24 02/18/24 02/18/24 Range/Units 04:13 04:13 04:13 WBC 8.0 (4.8-10.8) x10^3/uL RBC 2.98 L (4.20-5.40) 10^6/uL Hgb 9.4 L (12.0-16.0) g/dL Hct 28.7 L (37.0-47.0) % MCV 96.3 (81.0-99.0) fL MCH 31.5 H (27.0-31.0) pg MCHC 32.8 (32.0-36.0) g/dL RDW 18.6 H (12.0-15.0) % Plt Count 94 L (130-450) 10^3/uL MPV 10.9 H (7.9-10.8) fL Neut # (Auto) 6.7 H (1.5-6.6) 10^3/uL Lymph # (Auto) 0.8 L (1.5-3.5) 10^3/uL [place] # (Auto) 0.4 (0.0-1.0) 10^3/uL Eos # (Auto) 0.0 (0.0-0.7) 10^3/uL Baso # (Auto) 0.0 (0.0-0.1) 10^3/uL Absolute Nucleated RBC 0.00 x10^3/uL Nucleated RBC % 0.0 /100WBC PT 12.0 (9.9-12.6) secs INR 1.1 (0.8-1.2) Sodium 134 L (135-145) mmol/L Potassium 3.7 (3.5-4.5) mmol/L Chloride 106 (101-111) mmol/L Carbon Dioxide 21 (21-32) mmol/L Anion Gap 7.0 (6-13) BUN 33 H (6-20) mg/dL Creatinine 0.6 (0.6-1.3) mg/dL Estimated GFR (MDRD) 97 (>89) Glucose 160 H (74-104) mg/dL Lactic Acid (0.5-2.2) mmol/L Calcium 7.9 L (8.5-10.3) mg/dL Phosphorus 3.1 (2.5-5.0) mg/dL Magnesium 2.1 (1.7-2.3) mg/dL Total Bilirubin 0.7 (0.2-1.0) mg/dL Direct Bilirubin 0.11 (0.03-0.18) mg/dL AST 9 L (10-42) IU/L ALT 14 (10-60) IU/L Alkaline Phosphatase 44 (42-121) IU/L Total Protein 5.3 L (6.4-8.9) g/dL Albumin 3.2 (3.2-5.5) g/dL Globulin 2.1 (2.1-4.2) g/dL Nasal Screen MRSA (PCR) (NEGATIVE) Blood Type Antibody Screen Antibody Identification MIQUEL, Polyspecific Crossmatch Crossmatch IS Only 02/17/24 02/17/24 02/17/24 Range/Units 21:10 15:48 15:06 WBC (4.8-10.8) x10^3/uL RBC (4.20-5.40) 10^6/uL Hgb 10.7 L 8.9 L (12.0-16.0) g/dL Hct 33.1 L 26.7 L (37.0-47.0) % MCV (81.0-99.0) fL MCH (27.0-31.0) pg MCHC (32.0-36.0) g/dL RDW (12.0-15.0) % Plt Count (130-450) 10^3/uL MPV (7.9-10.8) fL Neut # (Auto) (1.5-6.6) 10^3/uL Lymph # (Auto) (1.5-3.5) 10^3/uL [place] # (Auto) (0.0-1.0) 10^3/uL Eos # (Auto) (0.0-0.7) 10^3/uL Baso # (Auto) (0.0-0.1) 10^3/uL Absolute Nucleated RBC x10^3/uL Nucleated RBC % /100WBC PT (9.9-12.6) secs INR (0.8-1.2) Sodium (135-145) mmol/L Potassium (3.5-4.5) mmol/L Chloride (101-111) mmol/L Carbon Dioxide (21-32) mmol/L Anion Gap (6-13) BUN (6-20) mg/dL Creatinine (0.6-1.3) mg/dL Estimated GFR (MDRD) (>89) Glucose (74-104) mg/dL Lactic Acid 1.5 (0.5-2.2) mmol/L Calcium (8.5-10.3) mg/dL Phosphorus (2.5-5.0) mg/dL Magnesium (1.7-2.3) mg/dL Total Bilirubin (0.2-1.0) mg/dL Direct Bilirubin (0.03-0.18) mg/dL AST (10-42) IU/L ALT (10-60) IU/L Alkaline Phosphatase (42-121) IU/L Total Protein (6.4-8.9) g/dL Albumin (3.2-5.5) g/dL Globulin (2.1-4.2) g/dL Nasal Screen MRSA (PCR) (NEGATIVE) Blood Type Antibody Screen Antibody Identification MIQUEL, Polyspecific Crossmatch Crossmatch IS Only 02/17/24 02/16/24 Range/Units 10:50 20:09 WBC (4.8-10.8) x10^3/uL RBC (4.20-5.40) 10^6/uL Hgb (12.0-16.0) g/dL Hct (37.0-47.0) % MCV (81.0-99.0) fL MCH (27.0-31.0) pg MCHC (32.0-36.0) g/dL RDW (12.0-15.0) % Plt Count (130-450) 10^3/uL MPV (7.9-10.8) fL Neut # (Auto) (1.5-6.6) 10^3/uL Lymph # (Auto) (1.5-3.5) 10^3/uL [place] # (Auto) (0.0-1.0) 10^3/uL Eos # (Auto) (0.0-0.7) 10^3/uL Baso # (Auto) (0.0-0.1) 10^3/uL Absolute Nucleated RBC x10^3/uL Nucleated RBC % /100WBC PT (9.9-12.6) secs INR (0.8-1.2) Sodium (135-145) mmol/L Potassium (3.5-4.5) mmol/L Chloride (101-111) mmol/L Carbon Dioxide (21-32) mmol/L Anion Gap (6-13) BUN (6-20) mg/dL Creatinine (0.6-1.3) mg/dL Estimated GFR (MDRD) (>89) Glucose (74-104) mg/dL Lactic Acid (0.5-2.2) mmol/L Calcium (8.5-10.3) mg/dL Phosphorus (2.5-5.0) mg/dL Magnesium (1.7-2.3) mg/dL Total Bilirubin (0.2-1.0) mg/dL Direct Bilirubin (0.03-0.18) mg/dL AST (10-42) IU/L ALT (10-60) IU/L Alkaline Phosphatase (42-121) IU/L Total Protein (6.4-8.9) g/dL Albumin (3.2-5.5) g/dL Globulin (2.1-4.2) g/dL Nasal Screen MRSA (PCR) NEGATIVE (NEGATIVE) Blood Type O POSITIVE Antibody Screen POSITIVE Antibody Identification Inconclusive MIQUEL, Polyspecific NEGATIVE Crossmatch See Detail Crossmatch IS Only See Detail ABX Reporting Has patient been on IV antibiotics over the past 48 hours?: Yes Sepsis Event Note (H) - Evaluation Current Stage of Sepsis: Ruled out Assessment/Plan - Problem List (1) GI bleed Impression: The patient's GI bleed was likely due to gastric ulcers. She will continue Protonix 40 mg twice daily. Maalox was ordered as well. Will advance her to full liquids this afternoon. (2) Acute blood loss anemia Impression: She is status post 2 units of packed red blood cells. Her hemoglobin responded appropriately. Her acute blood loss anemia was due to a bleeding gastric ulcer. (3) Gastric ulcer Impression: On EGD the patient was found to have a gastric ulcer that was quite large that gabriel hernandez was the source of the bleeding. Continue twice daily PPI and Maalox ordered by general surgery. She will need to be on twice daily PPI therapy for 6 to 8 weeks. She will need a repeat EGD to document healing. (4) Lactic acidosis Impression: Resolved (5) UTI (urinary tract infection) Impression: The patient will complete 1 more day of IV Levaquin. Likely will stop it after tomorrow's dose to complete a 3-day course of therapy. Urine culture was contaminated. (6) Acute metabolic encephalopathy Impression: Secondary to her acute blood loss anemia. Resolved. Also possibly due to urinary tract infection. She did have an elevated white blood cell count which could have been reactive to her acute blood loss versus an underlying UTI. Urine culture was contaminated so it is difficult to tell. (7) Syncope Impression: Secondary to acute blood loss anemia. No further episodes. Patient is no longer dizzy after receiving blood yesterday (8) Alcohol use disorder Impression: Her brother was concerned that she has been drinking at the facility. Longstanding history of alcohol use but reportedly quit after she moved into assisted living. She has CIWA protocol in place but has not shown any signs of alcohol withdrawals thus far (9) Hyponatremia Impression: The patient's sodium level was 128 on admission. Up to 134 today. Improving. She will have a chemistry panel in the morning. (10) Hypomagnesemia Impression: Repleted and resolved (11) Hyperglycemia Impression: Initially felt to be reactive to her acute blood loss but her glucose level this morning was 160. Will add a hemoglobin A1c onto her blood work for tomorrow morning. (12) Sinus tachycardia Impression: The patient is still tachycardic today. Will leave her on telemetry. Hopefully will begin to see this improve. Blood pressure is much improved. I am going to place her back on her home dose of metoprolol. (13) Hypertension Impression: Will continue to hold the patient's lisinopril. Will place her back on her metoprolol succinate 50 mg daily for now (14) Hyperlipidemia Impression: It was reported that she has a history of hyperlipidemia however she currently is on no medical therapy (15) Hypothyroid Impression: Continue Synthroid 25 mcg daily Time spent: 35 minutes I have discussed this patient with Dr. Thibodeaux and he is in agreement with the assessment and plan
[2024-02-18] MEDS: LORazepam 1 MG TABLET PO PRN (14:15)
[2024-02-18] MEDS: METOPROLOL SUCCINATE 50 MG TABLET PO SCH (21:19)
[2024-02-18] MEDS: LORazepam 2 MG/ML VIAL IVP PRN (22:21)
[2024-02-19 04:54] LABS: BASOPHILS % (AUTO) 0.7 %; EOSINOPHILS # (AUTO) 0.1 10^3/uL (0.0-0.7); EOSINOPHILS % (AUTO) 2.2 %; HCT - HEMATOCRIT 26.1 % (37.0-47.0); HGB - HEMOGLOBIN 8.6 g/dL (12.0-16.0); LYMPHOCYTES # (AUTO) 1.7 10^3/uL (1.5-3.5); LYMPHOCYTES % (AUTO) 28.1 %; MEAN PLATELET VOLUME 10.3 fL (7.9-10.8); MONOCYTES # (AUTO) 0.5 10^3/uL (0.0-1.0); MONOCYTES % (AUTO) 7.5 %; NEUTROPHILS # (AUTO) 3.6 10^3/uL (1.5-6.6); NRBC ABSOLUTE COUNT (AUTO) 0.02 x10^3/uL; NUCLEATED RED BLOOD CELLS AUTO 0.3 /100WBC; PLT - PLATELET COUNT 67 10^3/uL (130-450); RED BLOOD COUNT 2.69 10^6/uL (4.20-5.40); RED CELL DISTRIBUTION WIDTH 19.1 % (12.0-15.0)
[2024-02-19 05:14] LABS: CALCIUM, IONIZED 1.13 mmol/L (1.15-1.33); VBG PH 7.415 (7.31-7.41)
[2024-02-19 05:17] LABS: CALCIUM 8.5 mg/dL (8.5-10.3); CREATININE 0.5 mg/dL (0.6-1.3); MAGNESIUM 1.7 mg/dL (1.7-2.3); POTASSIUM 3.7 mmol/L (3.5-4.5)
[2024-02-19] MEDS: NEUTRA-PHOS 250 MG TABLET PO SCH (08:02)
--- NOTE | 2024-02-19 09:15 | PROVIDER PROGRESS NOTE ---
Subjective - Prog Note Date Prog Note Date: 02/19/24 Prog Note Time: 15:00 - Subjective Pt reports feeling: Improved Subjective: The patient is a 79-year-old female with a history of alcohol abuse. She currently lives at [facility]. The patient was brought to the emergency room after having a syncopal episode at home. She has a remote history of peptic ulcer disease diagnosed 3 years ago. She did not follow-up with GI after her EGD. The patient stated that she has had some black stools for the past couple of weeks. The patient was found to be having an upper GI bleed. Her hemoglobin was only 8.8. She was admitted to the hospital for further evaluation and treatment. The next morning the patient became confused, cold and clammy and was hypotensive. Repeat H&H dropped to 5.9. 2 units of packed red blood cells were ordered however it quite some time to get the blood as she had some antibodies. The patient did receive the blood eventually and was stabilized. Yesterday she had an upper endoscopy which revealed 2 gastric ulcers 1 of which was quite large and was the likely source of the GI bleed. There was no active bleeding noted on endoscopy. Today the patient's hemoglobin is drifted back down to 8.6. She denies fever or chills. No chest pain or heart palpitations. No nausea or vomiting. No abdominal pain. No urinary complaints. Her GI bleed appears to be due to NSAID use. She also has a history of heavy alcohol use. She does tell me that she drinks a glass of wine with happy hour at the facility occasionally and we discussed stopping that when she goes back to the facility. She was agreeable and voiced understanding Current Medications - Current Medications Current Medications: Acetaminophen 650 mg p.o. every 4 hours as needed Multivitamin daily Gabapentin 300 mg daily Synthroid 25 mcg daily lipase/protease/amylase 5 mg p.o. daily CIWA protocol Magnesium oxide 400 mg p.o. daily Multivitamin p.o. daily Zofran 4 mg oral disintegrating tablet every 6 hours as needed Protonix 40 mg IV twice daily Thiamine 100 mg p.o. daily Hydrocodone 5 mg po q6h prn pain Objective - Vital Signs/Intake & Output Reviewed Vital Signs: Yes Vital Signs: Vital Signs x48h Temp Pulse Resp BP Pulse Ox O2 Flow Rate 02/19/24 09:00 97 20 170/96 H 98 02/19/24 08:00 97.8 C H 103 H 24 167/110 H 100 02/19/24 07:00 94 26 H 184/94 H 93 2 02/19/24 06:00 93 18 154/93 H 97 2 02/19/24 05:00 93 15 151/86 H 96 2 02/19/24 04:00 36.7 C 94 18 135/101 H 100 2 02/19/24 03:00 103 H 14 149/94 H 100 2 02/19/24 02:00 104 H 14 149/94 H 100 Intake & Output: Intake & Output 02/16/24 02/17/24 02/18/24 02/19/24 23:59 23:59 23:59 23:59 Intake Total 500 1626 2741 360 Output Total 875 550 550 Balance 968 416 3300 -190 - Objective General Appearance: positive: No acute distress, Alert Eyes Bilateral: positive: Normal inspection ENT: positive: ENT inspection nml Neck: positive: Nml inspection Respiratory: positive: No respiratory distress, Breath sounds nml Cardiovascular: positive: Regular rate & rhythm, No murmur, No gallop. neg ative: Friction rub Abdomen: positive: Non-tender, No organomegaly, Nml bowel sounds, No distention Skin: positive: Color nml, No rash, Warm Extremities: positive: Non-tender, Full ROM Neurologic/Psychiatric: positive: Oriented x3, CN's nml (2-12) - Lab Results Fish Bones: 02/19/24 04:12 02/19/24 04:12 Other Labs: Lab Results x24hrs 02/19/24 02/19/24 02/19/24 Range/Units 04:12 04:12 04:12 WBC (4.8-10.8) x10^3/uL RBC (4.20-5.40) 10^6/uL Hgb (12.0-16.0) g/dL Hct (37.0-47.0) % MCV (81.0-99.0) fL MCH (27.0-31.0) pg MCHC (32.0-36.0) g/dL RDW (12.0-15.0) % Plt Count (130-450) 10^3/uL MPV (7.9-10.8) fL Neut # (Auto) (1.5-6.6) 10^3/uL Lymph # (Auto) (1.5-3.5) 10^3/uL Traill # (Auto) (0.0-1.0) 10^3/uL Eos # (Auto) (0.0-0.7) 10^3/uL Baso # (Auto) (0.0-0.1) 10^3/uL Absolute Nucleated RBC x10^3/uL Nucleated RBC % /100WBC VBG pH 7.415 H (7.31-7.41) Ionized Calcium 1.13 L (1.15-1.33) mmol/L Sodium 131 L (135-145) mmol/L Potassium 3.7 (3.5-4.5) mmol/L Chloride 102 (101-111) mmol/L Carbon Dioxide 25 (21-32) mmol/L Anion Gap 4.0 L (6-13) BUN 23 H (6-20) mg/dL Creatinine 0.5 L (0.6-1.3) mg/dL Estimated GFR (MDRD) 120 (>89) Glucose 119 H (74-104) mg/dL Calcium 8.5 (8.5-10.3) mg/dL Phosphorus 2.3 L (2.5-5.0) mg/dL Magnesium 1.7 (1.7-2.3) mg/dL 05//24 Range/Units 04:12 WBC 6.0 (4.8-10.8) x10^3/uL RBC 2.69 L (4.20-5.40) 10^6/uL Hgb 8.6 L (12.0-16.0) g/dL Hct 26.1 L (37.0-47.0) % MCV 97.0 (81.0-99.0) fL MCH 32.0 H (27.0-31.0) pg MCHC 33.0 (32.0-36.0) g/dL RDW 19.1 H (12.0-15.0) % Plt Count 67 L (130-450) 10^3/uL MPV 10.3 (7.9-10.8) fL Neut # (Auto) 3.6 (1.5-6.6) 10^3/uL Lymph # (Auto) 1.7 (1.5-3.5) 10^3/uL [place]ill # (Auto) 0.5 (0.0-1.0) 10^3/uL Eos # (Auto) 0.1 (0.0-0.7) 10^3/uL Baso # (Auto) 0.0 (0.0-0.1) 10^3/uL Absolute Nucleated RBC 0.02 x10^3/uL Nucleated RBC % 0.3 /100WBC VBG pH (7.31-7.41) Ionized Calcium (1.15-1.33) mmol/L Sodium (135-145) mmol/L Potassium (3.5-4.5) mmol/L Chloride (101-111) mmol/L Carbon Dioxide (21-32) mmol/L Anion Gap (6-13) BUN (6-20) mg/dL Creatinine (0.6-1.3) mg/dL Estimated GFR (MDRD) (>89) Glucose (74-104) mg/dL Calcium (8.5-10.3) mg/dL Phosphorus (2.5-5.0) mg/dL Magnesium (1.7-2.3) mg/dL ABX Reporting Has patient been on IV antibiotics over the past 48 hours?: Yes Sepsis Event Note (H) - Evaluation Current Stage of Sepsis: Ruled out Assessment/Plan - Problem List (1) GI bleed Impression: Yesterday the patient had an upper endoscopy performed by general surgery. She was found to have 2 gastric ulcers 1 was quite large and likely was the source of the bleeding. No active bleeding was noted. While she is in the hospital she will continue IV Protonix 40 mg twice daily. This will need to be tra nsition to p.o. at discharge. Her hemoglobin has drifted down slightly. Her IV fluids will be stopped today and if her hemoglobin remained stable she likely can be discharged tomorrow. She will need to follow-up in 6 to 8 weeks with the surgery clinic for repeat endoscopy. She has been counseled to avoid all NSAIDs. She says that she does drink a glass of wine with happy hour at her facility and she has been counseled to avoid that for now. (2) Acute blood loss anemia Impression: Hemoglobin has drifted down to 8.6 today. She has been receiving fluids which will be stopped. Continue to check H&H's every 8 hours. If her hemoglobin remained stable for the next 24 hours she can likely be discharged back to her facility tomorrow. (3) Gastric ulcer Impression: Continue twice daily PPI. She is receiving this IV. She will be transition to p.o. at discharge (4) Lactic acidosis Impression: Resolved (5) UTI (urinary tract infection) Impression: She received 3 days of IV Levaquin. Her urine culture was contaminated. I am stopping IV antibiotics today. (6) Acute metabolic encephalopathy Impression: Likely secondary to her GI bleed and poor perfusion to the brain. Her mentation improved and is back to its baseline after she received blood transfusion. (7) Syncope Impression: Likely due to acute blood loss anemia. No further syncopal episodes. Her dizziness has resolved. (8) Alcohol use disorder Impression: The patient has a history of alcohol use disorder. She has had CIWA protocol available as needed. Her brother thought that she might be drinking at the facility. The patient states that she only has a glass of wine with happy hour at the facility. She is exhibited no signs of alcohol withdrawal during this hospitalization. We did discuss the need to avoid alcohol while her ulcer is healing and due to her history it would be better to just abstain. (9) Hyponatremia Impression: Her sodium level is low but I suspect this is chronic. She will have a chemistry panel drawn in the morning. (10) Hypomagnesemia Impression: Repleted and resolved (11) Hyperglycemia Impression: Likely reactive. Improved. Hemoglobin A1c is 4.4. (13) Hypertension Impression: The patient's metoprolol succinate was cut back to 25 mg on discharge which we will continue. I am going to add back her home dose of lisinopril today. (14) Hyperlipidemia Impression: Currently on no medical therapy (15) Hypothyroid Impression: Continue Synthroid 25 mcg daily Time spent: 35 minutes I have discussed this patient with Dr Thibodeaux who is in agrrement with this assessment and plan
[2024-02-19] MEDS: lisinopriL 20 MG TABLET PO SCH (11:12)
[2024-02-19 12:28] LABS: ESTIMATED AVERAGE GLUCOSE 88 mg/dL (70-100); HEMOGLOBIN A1c% 4.7 % (4.27-6.07)
[2024-02-20 08:20] VITALS: O2SAT 96
[2024-02-20 09:11] LABS: BASOPHILS % (AUTO) 0.5 %; EOSINOPHILS # (AUTO) 0.2 10^3/uL (0.0-0.7); EOSINOPHILS % (AUTO) 4.3 %; HCT - HEMATOCRIT 28.6 % (37.0-47.0); HGB - HEMOGLOBIN 9.3 g/dL (12.0-16.0); LYMPHOCYTES # (AUTO) 1.3 10^3/uL (1.5-3.5); LYMPHOCYTES % (AUTO) 22.7 %; MEAN CORPUSCULAR HEMOGLOBIN 31.6 pg (27.0-31.0); MEAN CORPUSCULAR HGB CONC 32.5 g/dL (32.0-36.0); MEAN CORPUSCULAR VOLUME 97.3 fL (81.0-99.0); MEAN PLATELET VOLUME 10.8 fL (7.9-10.8); MONOCYTES # (AUTO) 0.5 10^3/uL (0.0-1.0); MONOCYTES % (AUTO) 8.7 %; NEUTROPHILS # (AUTO) 3.5 10^3/uL (1.5-6.6); NEUTROPHILS % (AUTO) 63.1 %; PLT - PLATELET COUNT 123 10^3/uL (130-450); RED BLOOD COUNT 2.94 10^6/uL (4.20-5.40); RED CELL DISTRIBUTION WIDTH 18.4 % (12.0-15.0); WHITE BLOOD COUNT 5.5 x10^3/uL (4.8-10.8)
[2024-02-20] MEDS: CYANOCOBALAMIN 500 MCG TABLET PO SCH (09:39)
[2024-02-20 10:20] VITALS: BP 153/101
--- NOTE | 2024-02-20 11:00 | Discharge Plan ---
Discharge Plan Problem Reviewed?: Yes Disposition: Home, Self Care Condition: Serious Prescriptions: LORazepam [Ativan] 0.5 mg PO Q6H PRN #5 tablet PRN Reason: Anxiety Pantoprazole [Protonix] 40 mg PO BID #180 tablet Diet: Regular Activity Restrictions: Activity as Tolerated Plan of Treatment: You will need to establish care with a PCP and require a referral to general surgery for a repeat EGD to ensure resolution of gastric ulceration. No Smoking: If you smoke, Please STOP! Call for help.
[2024-02-20] MEDS: CYANOCOBALAMIN 1,000 MCG/ML VIAL IM ONE (11:27)
--- NOTE | 2024-02-20 11:59 | DISCHARGE SUMMARY ---
"Discharge Summary Admit Date: 02/17/24 Discharge Date: 02/20/24 Code Status: Attempt Resuscitation Condition at Discharge: Good Discharge Disposition: 01 Home, Self Care - HPI History of Present Illness: H&P was conducted via video remotely, using Access Cart. Patient is in [place]. Physician is in [place]. No one is at bedside. 79 yo F with PMH of PUD, HTN, HLD, Hypothyroidism, Depression/Anxiety presented to the ER with c/o 2 week h/o Dizziness. Pt has a h/o PUD dx'd 3 years ago. She did not F/u with GI after EGD with diagnosis. In 06/2023, she presented to the ER with melena. She was stable and D/C'd home with instructions sto F/u with GI. She did not F/U. Pt noticed black stool again for a few days about 2 weeks ago. This resolved spontaneously, but then she began to feel dizzy/light-headed/weak, and this has progressively worsened x 2 weeks. Dizziness worse with standing up. +nausea/no vomiting/no abdo pain. Decreased PO intake. Yesterday, she was sitting in her recliner, she felt dizzy and she passed out x few minutes. Pt has been taking Advil QD PRN for her shoulder pain; she broke her R shoulder 1.5 years ago. She drinks ETOH 1-2 glasses of wine/day. No CP/SOB/cough. No dysuria/urinary urgency, +subj F/C/sweats. In the ER, HR 120s-118 s/p IVF, WBC 11.4, Hgb 8.8, MCV 104.5, Na 128, Glc 142, Mg 1.6, Lactate 2.5, U/A: +LE WBC Chest CTA: no PE PRBC 1 unit was ordered, but pt has antibody/issues with blood; PRBC ordered from [facility] and it will arrive in the AM. Pt was given IVF, Xanax, Dilaudid, Levofloxacin in the ER. - CONSULTS | PROCEDURES Consultations: General surgery - HOSPITAL COURSE Hospital Course: Patient is a 79-year-old female who presented to the ED with complaints of dizziness over 2 weeks. She was given a diagnosis of a gastrointestinal bleed due to dark stools. Her hemoglobin was 5.9. Patient was admitted and given to units of packed red blood cells. General surgery was consulted and performed an EGD which revealed evidence of two 8 mm ulcers in the proximal stomach. She was given pantoprazole and her bleeding subsided. Patient's hemoglobin stabilized and subsequently discharged. She will need a PPI for 8 to 10 weeks. She had been taking quite a bit of NSAIDs at home for her shoulder pain and she was instructed to discontinue all NSAID use. She will need to follow-up with general surgery for EGD in 6 to 8 weeks to ensure healing. - ALLERGIES Allergies/Adverse Reactions: Allergies Allergy/AdvReac Type Severity Reaction Status Date / Time cefazolin Allergy Unknown Verified 02/16/24 19:09 codeine Allergy Unknown Verified 02/16/24 19:09 latex Allergy Unknown Verified 02/16/24 19:09 Penicillins Allergy Unknown Verified 02/16/24 20:57 Sulfa (Sulfonamide Allergy Unknown Verified 02/16/24 19:09 Antibiotics) - MEDICATIONS Home Medications: Ambulatory Orders Medication Instructions Recorded Confirmed Gabapentin [Neurontin] 300 mg PO DAILY 04/03/21 02/16/24 Levothyroxine [Synthroid] 25 mcg PO DAILY 04/03/21 02/16/24 Lipase/Protease/Amylase [Creon Dr 5 cap PO DAILY 04/03/21 02/16/24 12,000 Unit Capsule] Metoprolol Succinate [Toprol Xl] 50 mg PO DAILY 04/03/21 02/16/24 Ondansetron Odt [Zofran Odt] 4 mg TL Q6H PRN #10 tablet 01/22/24 02/16/24 Magnesium Oxide [Mag Ox] 400 mg PO DAILY 02/16/24 02/16/24 Multivitamin 1 each PO DAILY 02/16/24 02/16/24 lisinopriL [Lisinopril] 20 mg PO DAILY 02/16/24 02/16/24 LORazepam [Ativan] 0.5 mg PO Q6H PRN #5 tablet 02/20/24 Pantoprazole [Protonix] 40 mg PO BID #180 tablet 02/20/24 - PHYSICAL EXAM AT DISCHARGE General Appearance: positive: No acute distress, Alert Eyes Bilateral: positive: Normal inspection, PERRL, EOMI Respiratory: positive: Chest non-tender, No respiratory distress Cardiovascular: positive: Regular rate & rhythm, No murmur, No gallop Abdomen: positive: Non-tender, No organomegaly, Nml bowel sounds Extremities: positive: Non-tender, No pedal edema Neurologic/Psychiatric: positive: Oriented x3, CN's nml (2-12) - LABS Result Diagrams: 02/20/24 09:02 02/19/24 04:12 - SEPSIS Current Stage of Sepsis: Ruled out - FOLLOW UP Follow Up: She will need to establish care with a PCP. Follow up with general surgery. - TIME SPENT Time Spent in Discharge (Minutes): 30"
== END 2024-02-20 13:26 | disposition home or self-care (01) | DRG 377 ==
LOC: EDUNIT# → ED 19:06 → MS2 02-17 02:41 → ICU 02-17 11:03 → MS2 02-19 13:00
PROVIDERS: ADMIT Internal Medicine; ATTEND Family Medicine
PROC: 30233N1 Transfusion of Nonautologous Red Blood Cells into Peripheral Vein, Percutaneous Approach (ICD-10-PCS; 2024-02-17)
PROC: 0DB78ZX Excision of Stomach, Pylorus, Via Natural or Artificial Opening Endoscopic, Diagnostic (ICD-10-PCS; principal; 2024-02-18 08:00)
DX: K25.4 Chronic or unspecified gastric ulcer with hemorrhage (principal); A41.9 Sepsis, unspecified organism; G93.41 Metabolic encephalopathy; D62 Acute posthemorrhagic anemia; F03.90 Unspecified dementia, unspecified severity, without behavioral disturbance, psychotic disturbance, mood disturbance, and anxiety; D64.9 Anemia, unspecified; Z20.822 Contact with and (suspected) exposure to COVID-19; E87.1 Hypo-osmolality and hyponatremia; N39.0 Urinary tract infection, site not specified; E87.20 Acidosis, unspecified; F03.93 Unspecified dementia, unspecified severity, with mood disturbance; F03.94 Unspecified dementia, unspecified severity, with anxiety; I10 Essential (primary) hypertension; E78.5 Hyperlipidemia, unspecified; E03.9 Hypothyroidism, unspecified; M25.511 Pain in right shoulder; E78.00 Pure hypercholesterolemia, unspecified; D53.9 Nutritional anemia, unspecified; D72.829 Elevated white blood cell count, unspecified; R73.9 Hyperglycemia, unspecified; E83.42 Hypomagnesemia; F10.20 Alcohol dependence, uncomplicated; R00.0 Tachycardia, unspecified; Z79.890 Hormone replacement therapy; Z79.899 Other long term (current) drug therapy
CPT/HCPCS: 36415; 71275; 80048; 80053; 80076; 81001; 81599; 82330; 82607; 82746; 83036; 83540; 83605; 83690; 83735; 83880; 84100; 84443; 84466; 84484; 85014; 85018; 85025; 85379; 85610; 86850; 86870; 86880; 86900; 86901; 86922; 87040; 87086; 87633; 87640; 93005; 96361; 96374; 97162; 97166; 99285; A9270; J1170; J2060; J8499; P9016; Q9967; 81003; 86920

== ENCOUNTER 2024-02-21 08:19 | Outpatient (CLI) | payer MEDICARE | END 2024-02-21 23:59 | disposition critical access hospital (66) | LOC: EMS 08:19 | DX: R10.84 Generalized abdominal pain (principal); R10.817 Generalized abdominal tenderness; R14.0 Abdominal distension (gaseous); R19.5 Other fecal abnormalities; R23.1 Pallor | CPT/HCPCS: A0425; A0427 ==

== ENCOUNTER 2024-02-21 08:46 | Emergency (ER) | payer MEDICARE ==
--- NOTE | 2024-02-21 09:09 | ED Physician Documentation ---
PD HPI ABD PAIN - Stated complaint Stated Complaint: ABD PX - Chief complaint Chief Complaint: Abd Pain - History obtained from History obtained from: Patient, EMS - History of Present Illness Timing - onset: Today (noted large amount of melanotic stool this morning. Had been hospitalized for upper GI bleed for few days with stable H/H after EGD showing ulcer without active bleeding. Had melena again this morning. Otherwise feeling okay.) Quality: Cramping, Pain (lower abd prior to the BM. Still some epigastric pain which has been present prior to and during admission.) Associated symptoms: Melena. No: Fever, Nausea Review of Systems Constitutional: denies: Fever, Chills Neurologic: reports: Generalized weakness. 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: section HEENT: Cataracts - Present Medications Home Medications: Ambulatory Orders Medication Instructions Recorded Confirmed Gabapentin [Neurontin] 300 mg PO DAILY 04/03/21 02/21/24 Levothyroxine [Synthroid] 25 mcg PO DAILY 04/03/21 02/21/24 Lipase/Protease/Amylase [Creon Dr 5 cap PO DAILY 04/03/21 02/21/24 12,000 Unit Capsule] Metoprolol Succinate [Toprol Xl] 50 mg PO DAILY 04/03/21 02/21/24 Ondansetron Odt [Zofran Odt] 4 mg TL Q6H PRN #10 tablet 01/22/24 02/21/24 Magnesium Oxide [Mag Ox] 400 mg PO DAILY 02/16/24 02/21/24 Multivitamin 1 each PO DAILY 02/16/24 02/21/24 lisinopriL [Lisinopril] 20 mg PO DAILY 02/16/24 02/21/24 LORazepam [Ativan] 0.5 mg PO Q6H PRN #5 tablet 02/20/24 02/21/24 Pantoprazole [Protonix] 40 mg PO BID #180 tablet 02/20/24 02/21/24 amLODIPine [Norvasc] 5 mg PO DAILY #30 tablet 02/20/24 02/21/24 HYDROcod/ACETAM 5/325 [Story 5/325] 1 ea PO Q6H PRN #18 tablet 02/21/24 Ondansetron Odt [Zofran] 4 mg TL Q6H PRN #10 tablet 02/21/24 - Allergies Allergies/Adverse Reactions: Allergies Allergy/AdvReac Type Severity Reaction Status Date / Time cefazolin Allergy Unknown Verified 02/21/24 08:48 codeine Allergy Unknown Verified 02/21/24 08:48 latex Allergy Unknown Verified 02/21/24 08:48 Penicillins Allergy Unknown Verified 02/21/24 08:48 Sulfa (Sulfonamide Allergy Unknown Verified 02/21/24 08:48 Antibiotics) - Social History Does the pt smoke?: No Smoking Status: Never smoker Does the pt drink ETOH?: Yes ETOH Use: Wine Does the pt have substance abuse?: No - Immunizations Immunizations are current?: Yes PD ED PE NORMAL - Vitals Vital signs reviewed: Yes - General General: Alert and oriented X 3, No acute distress, Well developed/nourished - Cardiac Cardiac: RRR, No murmur - Respiratory Respiratory: No respiratory distress, Clear bilaterally - Abdomen Abdomen: Normal bowel sounds, Soft, Non distended, No organomegaly, Other (some tender without guarding nor percussion tender in epigastric area. Lower abd not tender. ) Results - Vitals Vitals: Vital Signs - 24 hr 02/21/24 02/21/24 02/21/24 08:48 09:15 10:05 Temperature 36.4 C L Heart Rate 102 H 96 100 Respiratory 16 24 14 Rate Blood Pressure 179/102 H 164/109 H 154/100 H O2 Saturation 97 96 93 02/21/24 02/21/24 12:00 13:48 Temperature 36.6 C Heart Rate 92 91 Respiratory 15 14 Rate Blood Pressure 174/118 H 195/92 H O2 Saturation 97 97 Oxygen O2 Source Room air - Labs Labs: Laboratory Tests 02/21/24 02/21/24 02/21/24 09:39 09:39 09:39 WBC 8.4 RBC 2.79 L Hgb 8.9 L Hct 27.5 L MCV 98.6 MCH 31.9 H MCHC 32.4 RDW 18.2 H Plt Count 154 MPV 11.4 H Neut # (Auto) 6.2 Lymph # (Auto) 1.2 L Carson # (Auto) 0.8 Eos # (Auto) 0.2 Baso # (Auto) 0.0 Absolute Nucleated RBC 0.00 Nucleated RBC % 0.0 Sodium 133 L Potassium 3.6 Chloride 97 L Carbon Dioxide 30 Anion Gap 6.0 BUN 18 Creatinine 0.5 L Estimated GFR (MDRD) 120 Glucose 114 H Calcium 8.9 Magnesium 1.6 L Total Bilirubin 0.4 AST 14 ALT 16 Alkaline Phosphatase 52 Total Protein 5.6 L Albumin 3.4 Globulin 2.2 Albumin/Globulin Ratio 1.5 Lipase 17 Urine Color Urine Clarity Urine pH Ur Specific [place]one Urine Protein Urine Glucose (UA) Urine Ketones Urine Occult Blood Urine Nitrite Urine Bilirubin Urine Urobilinogen Ur Leukocyte Esterase Urine RBC Urine WBC Ur Squamous Epith Cells Amorphous Sediment Urine Bacteria Ur Microscopic Review Urine Culture Comments Blood Type O POSITIVE MIQUEL, IgG Specific NEGATIVE MIQUEL, Polyspecific NEGATIVE MIQUEL, C3d Specific NEGATIVE 02/21/24 02/21/24 10:05 11:48 WBC RBC Hgb 8.8 L Hct 26.8 L MCV MCH MCHC RDW Plt Count MPV Neut # (Auto) Lymph # (Auto) Carson # (Auto) Eos # (Auto) Baso # (Auto) Absolute Nucleated RBC Nucleated RBC % Sodium Potassium Chloride Carbon Dioxide Anion Gap BUN Creatinine Estimated GFR (MDRD) Glucose Calcium Magnesium Total Bilirubin AST ALT Alkaline Phosphatase Total Protein Albumin Globulin Albumin/Globulin Ratio Lipase Urine Color YELLOW Urine Clarity CLOUDY Urine pH 8.0 H Ur Specific [place]one 1.020 Urine Protein NEGATIVE Urine Glucose (UA) NEGATIVE Urine Ketones NEGATIVE Urine Occult Blood SMALL H Urine Nitrite NEGATIVE Urine Bilirubin NEGATIVE Urine Urobilinogen 0.2 (NORMAL) Ur Leukocyte Esterase NEGATIVE Urine RBC 0-5 Urine WBC 0-3 Ur Squamous Epith Cells RARE Squamous Amorphous Sediment Moderate Urine Bacteria Moderate H Ur Microscopic Review INDICATED Urine Culture Comments NOT INDICATED Blood Type MIQUEL, IgG Specific MIQUEL, Polyspecific MIQUEL, C3d Specific PD Medical Decision Making - ED course Complexity details: reviewed results (Bllod count is in same level range as last 3 done while in hospital. Repeated at few hours was the same. No further melena stools here. Seems still phase out of intestinal melena and not apparent recurrent bleeding. ), considered differential (just dicharged from several day admission for upper GI bleeding, with EGD showing ulcer without bleeding still. H/H was stable over 2-3 days. Discharged. Noted melena again today. ), d/w patient Departure - Departure Disposition: 01 Home, Self Care Clinical Impression: Melena, Gastric ulcer Condition: Stable Record reviewed to determine appropriate education?: Yes Prescriptions: HYDROcod/ACETAM 5/325 [Story 5/325] 1 ea PO Q6H PRN #18 tablet PRN Reason: Pain Ondansetron Odt [Zofran] 4 mg TL Q6H PRN #10 tablet PRN Reason: Nausea / Vomiting Comments: Your blood count first 1 this morning was similar to when you are in the hospital and the repeat has not changed. At this point I am presuming the new melena/blood out that you had this morning and overnight was residual in the intestine and not new bleeding. Your vital signs are good as well. Continue with the plan on discharge from the hospital regarding medicines and follow-up with surgery. I had a prescription for ondansetron/Zofran every 6 hours if needed for nausea. For pain I would suggest Tylenol 500 to 650 mg regularly 4 times a day for the next several days to week. Avoid NSAIDs. To that add hydrocodone every 6-8 hours if needed for worse pain in the short-term. I sent your prescription to your preferred pharmacy. I am prescribing a short course of narcotic pain medication for you. These are potentially dangerous and addictive medications that should be used carefully. These medications may constipate you. Take an [id number] stool softener such as docusate twice daily with plenty of water while taking these medications. If you go 24 hours without a bowel movement, take [id number] MiraLAX, per package instructions. Do not drink or drive while taking these medications. If you received narcotic or sedating medications while in the emergency department do not drive for 24 hours. Store this medication in a safe, secure place and out of reach of children. It is a violation of federal law to give or sell this medication to another person or to use in a manner other than prescribed. The ED will not refill narcotic prescriptions, including prescriptions lost or stolen. You can dispose of unwanted medications at the [facility]'s office or at several pharmacies such as [facility]. Forms: PCP List Discharge Date/Time: 02/21/24 14:50
[2024-02-21 09:45] LABS: BASOPHILS % (AUTO) 0.5 %; EOSINOPHILS # (AUTO) 0.2 10^3/uL (0.0-0.7); HCT - HEMATOCRIT 27.5 % (37.0-47.0); HGB - HEMOGLOBIN 8.9 g/dL (12.0-16.0); LYMPHOCYTES # (AUTO) 1.2 10^3/uL (1.5-3.5); LYMPHOCYTES % (AUTO) 13.7 %; MEAN CORPUSCULAR HEMOGLOBIN 31.9 pg (27.0-31.0); MEAN CORPUSCULAR HGB CONC 32.4 g/dL (32.0-36.0); MEAN CORPUSCULAR VOLUME 98.6 fL (81.0-99.0); MEAN PLATELET VOLUME 11.4 fL (7.9-10.8); MONOCYTES # (AUTO) 0.8 10^3/uL (0.0-1.0); MONOCYTES % (AUTO) 8.9 %; NEUTROPHILS # (AUTO) 6.2 10^3/uL (1.5-6.6); NEUTROPHILS % (AUTO) 74.4 %; PLT - PLATELET COUNT 154 10^3/uL (130-450); RED BLOOD COUNT 2.79 10^6/uL (4.20-5.40); RED CELL DISTRIBUTION WIDTH 18.2 % (12.0-15.0); WHITE BLOOD COUNT 8.4 x10^3/uL (4.8-10.8)
[2024-02-21] MEDS: PANTOPRAZOLE 40 MG VIAL IVP STA (09:55)
[2024-02-21] MEDS: SUCRALFATE 1 GM/10 ML UDC PO STA (09:56)
[2024-02-21] MEDS: HYDROmorphone 0.5 MG/0.5 ML SYRINGE IVP STA (09:56)
[2024-02-21 09:58] LABS: ALBUMIN 3.4 g/dL (3.2-5.5); ALBUMIN/GLOBULIN RATIO 1.5 (1.0-2.2); BILIRUBIN,TOTAL 0.4 mg/dL (0.2-1.0); CALCIUM 8.9 mg/dL (8.5-10.3); CREATININE 0.5 mg/dL (0.6-1.3); MAGNESIUM 1.6 mg/dL (1.7-2.3); POTASSIUM 3.6 mmol/L (3.5-4.5); TOTAL PROTEIN 5.6 g/dL (6.4-8.9)
[2024-02-21] MEDS: SODIUM CHLORIDE 0.9% 1,000 ML IV STA (10:01)
[2024-02-21 10:12] LABS: BILIRUBIN,URINE NEGATIVE (NEGATIVE); GLUCOSE, URINE (UA) NEGATIVE (NEGATIVE); KETONES,URINE (UA) NEGATIVE (NEGATIVE); LEUKOCYTE ESTERASE, URINE NEGATIVE (NEGATIVE); NITRITE,URINE NEGATIVE (NEGATIVE); OCCULT BLOOD,URINE SMALL (NEGATIVE); PROTEIN,URINE NEGATIVE (NEGATIVE); UROBILINOGEN,URINE 0.2 (NORMAL) E.U./dL (NORMAL)
[2024-02-21 10:25] LABS: BACTERIA,URINE Moderate /HPF (None Seen); CLARITY,URINE CLOUDY (CLEAR); RBC,URINE 0-5 /HPF (0-5); SQUAMOUS EPITHELIAL CELL,UR RARE Squamous (<= Few); WBC,URINE 0-3 /HPF (0-5)
[2024-02-21 10:26] LABS: AMORPHOUS SEDIMENT,UR Moderate /LPF
[2024-02-21 11:53] LABS: HCT - HEMATOCRIT 26.8 % (37.0-47.0); HGB - HEMOGLOBIN 8.8 g/dL (12.0-16.0)
[2024-02-21 12:40] VITALS: O2SAT 97
[2024-02-21] MEDS: oxyCODONE 5 MG TABLET PO STA (13:45)
[2024-02-21 13:53] VITALS: BP 195/92
== END 2024-02-21 14:50 | disposition home or self-care (01) ==
LOC: EDUNIT# → ED 08:46
DX: K92.1 Melena (principal); K25.9 Gastric ulcer, unspecified as acute or chronic, without hemorrhage or perforation; I10 Essential (primary) hypertension; E78.00 Pure hypercholesterolemia, unspecified; E03.9 Hypothyroidism, unspecified; F03.90 Unspecified dementia, unspecified severity, without behavioral disturbance, psychotic disturbance, mood disturbance, and anxiety; Z79.899 Other long term (current) drug therapy
CPT/HCPCS: 36415; 80053; 81001; 83690; 83735; 85014; 85018; 85025; 86850; 86870; 86880; 86900; 86901; 96374; 99284; A9270; J1170; 81003; 87086

== ENCOUNTER 2024-02-25 15:22 | Outpatient (CLI) | payer MEDICARE | END 2024-02-25 23:59 | disposition EMS.NT | LOC: EMS 15:22 | DX: R06.02 Shortness of breath (principal); R45.89 Other symptoms and signs involving emotional state ==

== ENCOUNTER 2024-02-26 20:03 | Outpatient (CLI) | payer MEDICARE | END 2024-02-26 23:59 | disposition critical access hospital (66) | LOC: EMS 20:03 | DX: R42 Dizziness and giddiness (principal); M25.512 Pain in left shoulder; R00.0 Tachycardia, unspecified; R03.1 Nonspecific low blood-pressure reading; F10.90 Alcohol use, unspecified, uncomplicated | CPT/HCPCS: A0425; A0427 ==

== ENCOUNTER 2024-02-26 20:30 | Observation (INO) | payer MEDICARE ==
--- NOTE | 2024-02-26 20:57 | ED Physician Documentation ---
History of Present Illness - Stated complaint Stated Complaint: DIZZY/L SHOULDER PX - Chief complaint Chief Complaint: Ext Problem - History obtained from History obtained from: Patient - Additonal information Additional information: 79-year-old woman with history of high blood pressure, hypothyroidism, anxiety, recent hospitalization for GI bleed presents with left shoulder pain intermittent over the past few days waxing and waning in severity, currently 9 out of 10. Patient also endorses severe anxiety, nausea, dizziness that has been ongoing for a "long time". Denies injury to the shoulder, chest pain, shortness of breath, cough, fever, pain with range of motion, numbness or tingling to the extremities. Also with headache to base of head/neck ache. PD PAST MEDICAL HISTORY - Past Medical History Cardiovascular: Hypertension, High cholesterol Respiratory: None Neuro: Dementia Endocrine/Autoimmune: HyPOthyroidism GI: GERD, GI bleed, Ulcers, Hemorrhoids CLEAN UP PERSON: None : None Psych: Depression, Anxiety Musculoskeletal: Chronic back pain Derm: None, Other - Past Surgical History Past Surgical History: Yes General: Colonoscopy, EGD, Other /CLEAN UP PERSON: section HEENT: Cataracts - Present Medications Home Medications: Ambulatory Orders Medication Instructions Recorded Confirmed Gabapentin [Neurontin] 300 mg PO DAILY 04/03/21 02/21/24 Levothyroxine [Synthroid] 25 mcg PO DAILY 04/03/21 02/21/24 Lipase/Protease/Amylase [Creon Dr 5 cap PO DAILY 04/03/21 02/21/24 12,000 Unit Capsule] Metoprolol Succinate [Toprol Xl] 50 mg PO DAILY 04/03/21 02/21/24 Ondansetron Odt [Zofran Odt] 4 mg TL Q6H PRN #10 tablet 01/22/24 02/21/24 Magnesium Oxide [Mag Ox] 400 mg PO DAILY 02/16/24 02/21/24 Multivitamin 1 each PO DAILY 02/16/24 02/21/24 lisinopriL [Lisinopril] 20 mg PO DAILY 02/16/24 02/21/24 LORazepam [Ativan] 0.5 mg PO Q6H PRN #5 tablet 02/20/24 02/21/24 Pantoprazole [Protonix] 40 mg PO BID #180 tablet 02/20/24 02/21/24 amLODIPine [Norvasc] 5 mg PO DAILY #30 tablet 02/20/24 02/21/24 HYDROcod/ACETAM 5/325 [[place] 5/325] 1 ea PO Q6H PRN #18 tablet 02/21/24 Ondansetron Odt [Zofran] 4 mg TL Q6H PRN #10 tablet 02/21/24 - Allergies Allergies/Adverse Reactions: Allergies Allergy/AdvReac Type Severity Reaction Status Date / Time cefazolin Allergy Unknown Verified 02/26/24 20:40 codeine Allergy Unknown Verified 02/26/24 20:40 latex Allergy Unknown Verified 02/26/24 20:40 Penicillins Allergy Unknown Verified 02/26/24 20:40 Sulfa (Sulfonamide Allergy Unknown Verified 02/26/24 20:40 Antibiotics) - Social History Does the pt smoke?: No Smoking Status: Never smoker Does the pt drink ETOH?: Yes Does the pt have substance abuse?: No - Immunizations Immunizations are current?: Yes PD ED PE NORMAL - Vitals Vital signs reviewed: Yes - General General: Alert and oriented X 3, Other (anxious appearing, intermittently moaning/yelling out) - HEENT HEENT: Atraumatic, PERRL, EOMI, Moist mucous membranes, Pharynx benign - Neck Neck: Supple, no meningeal sign - Cardiac Cardiac: Other (tachycardic rate, regular rhythm) - Respiratory Respiratory: No respiratory distress, Clear bilaterally - Extremities Extremities: Other (L shoulder discomfort to palpation along anterior rotator cuff. nontender along sternum, L clavicle, humerus, forearm or wrist. CSM intact LUE. normal ROM L shoulder) Results - Vitals Vitals: Vital Signs - 24 hr 02/26/24 02/26/24 02/26/24 20:36 22:58 23:01 Temperature 36.2 C L Heart Rate 103 H Heart Rate [ Monitoring electrodes] Respiratory 18 Rate Blood Pressure 128/66 Blood Pressure [Right Brachial artery] O2 Saturation 98 88 L 99 If not protocol 2 : Oxygen Flow, liters/minute 02/26/24 02/26/24 02/26/24 23:27 23:43 23:45 Temperature 36.2 C L 36.3 C L 36.8 C Heart Rate Heart Rate [ 98 97 87 Monitoring electrodes] Respiratory 18 20 16 Rate Blood Pressure Blood Pressure 144/80 H 128/70 128/70 [Right Brachial artery] O2 Saturation 100 100 100 If not protocol 2 2 2 : Oxygen Flow, liters/minute 02/26/24 02/27/24 02/27/24 23:59 00:32 01:33 Temperature 36.3 C L 36.6 C Heart Rate 91 Heart Rate [ 95 87 Monitoring electrodes] Respiratory 16 16 17 Rate Blood Pressure 126/76 Blood Pressure 111/77 128/89 H [Right Brachial artery] O2 Saturation 100 100 97 If not protocol 2 2 2 : Oxygen Flow, liters/minute 02/27/24 02/27/24 02/27/24 03:13 04:06 04:21 Temperature 36.8 C 36.5 C Heart Rate Heart Rate [ 90 91 93 Monitoring electrodes] Respiratory 16 16 16 Rate Blood Pressure Blood Pressure 142/79 H 145/85 H 141/85 H [Right Brachial artery] O2 Saturation 95 96 99 If not protocol 2 2 : Oxygen Flow, liters/minute 02/27/24 02/27/24 02/27/24 04:40 05:06 05:58 Temperature 36.5 C 36.7 C Heart Rate Heart Rate [ 94 88 97 Monitoring electrodes] Respiratory 22 17 24 Rate Blood Pressure Blood Pressure 145/79 H 140/86 H 154/92 H [Right Brachial artery] O2 Saturation 99 96 93 If not protocol 2 2 2 : Oxygen Flow, liters/minute 02/27/24 06:15 Temperature Heart Rate 96 Heart Rate [ Monitoring electrodes] Respiratory 17 Rate Blood Pressure 157/88 H Blood Pressure [Right Brachial artery] O2 Saturation 98 If not protocol 2 : Oxygen Flow, liters/minute Oxygen O2 Source Nasal cannula Oxygen Flow Rate 2 - EKG (time done) 2216 EKG releavant findings:: EKG personally interpreted by author of this note. Relevant findings are: Rate: Rate (enter#) (100) Rhythm: Sinus tachycardia Intervals: Normal VT, Other (pvc) QRS: Normal Ischemia: Other (old ischemic changes) - Labs Labs: Laboratory Tests 02/26/24 02/26/24 02/26/24 21:06 21:06 21:35 WBC 9.9 RBC 1.34 L Hgb 4.4 L* Hct 14.5 L* MCV 108.2 H MCH 32.8 H MCHC 30.3 L RDW 20.6 H Plt Count 252 MPV 11.6 H Neut # (Auto) 7.4 H Lymph # (Auto) 1.6 [place] # (Auto) 0.7 Eos # (Auto) 0.1 Baso # (Auto) 0.0 Absolute Nucleated RBC 0.04 Nucleated RBC % 0.4 Manual Slide Review Indicated Platelet Estimate NORMAL (130-450,000) Platelet Morphology NORMAL APPEARANCE RBC Morph Micro Appear 1+ POLYCHROMASIA Sodium 130 L Potassium 3.7 Chloride 97 L Carbon Dioxide 21 Anion Gap 12.0 BUN 11 Creatinine 0.6 Estimated GFR (MDRD) 97 Glucose 93 Calcium 8.5 Total Bilirubin 0.3 AST 35 ALT 28 Alkaline Phosphatase 43 Total Protein 5.3 L Albumin 3.3 Globulin 2.0 L Albumin/Globulin Ratio 1.7 Lipase 14 Blood Type O POSITIVE Antibody Screen NEGATIVE MIQUEL, IgG Specific NEGATIVE MIQUEL, Polyspecific NEGATIVE MIQUEL, C3d Specific Not Reportable Crossmatch See Detail PD Medical Decision Making - ED course ED course: 79yF p/w pain to L shoulder over the past couple days, with unknown cause. patient has broken R shoulder but denies injury to the L shoulder or prior issues with it. denies chest pain and does not appear to have other s/s of ACS, however ekg was performed as a precaution. of note, patient was recently hospitalized for GIB. given she has been endorsing some dizziness we will recheck her hb today. Patient required very slow transfusion overnight. Still getting her second unit out of 3 at 7 AM shift change. Endorsed to Dr. Gr for further management and care. Departure - Departure Clinical Impression: Shoulder pain, left, Headache, Dizziness Condition: Stable Forms: PCP List
[2024-02-26] MEDS: MORPHINE 2 MG/ML CARPUJECT IVP STA (20:59)
[2024-02-26] MEDS: LORazepam 0.5 MG TABLET PO STA (21:00)
[2024-02-26] MEDS: SODIUM CHLORIDE 0.9% 500 ML IV STA (21:07)
[2024-02-26 21:17] LABS: BASOPHILS % (AUTO) 0.3 %; EOSINOPHILS # (AUTO) 0.1 10^3/uL (0.0-0.7); EOSINOPHILS % (AUTO) 0.5 %; LYMPHOCYTES # (AUTO) 1.6 10^3/uL (1.5-3.5); LYMPHOCYTES % (AUTO) 16.4 %; MEAN CORPUSCULAR HEMOGLOBIN 32.8 pg (27.0-31.0); MEAN CORPUSCULAR HGB CONC 30.3 g/dL (32.0-36.0); MEAN CORPUSCULAR VOLUME 108.2 fL (81.0-99.0); MEAN PLATELET VOLUME 11.6 fL (7.9-10.8); MONOCYTES # (AUTO) 0.7 10^3/uL (0.0-1.0); MONOCYTES % (AUTO) 7.2 %; NEUTROPHILS # (AUTO) 7.4 10^3/uL (1.5-6.6); NEUTROPHILS % (AUTO) 74.8 %; NRBC ABSOLUTE COUNT (AUTO) 0.04 x10^3/uL; NUCLEATED RED BLOOD CELLS AUTO 0.4 /100WBC; PLT - PLATELET COUNT 252 10^3/uL (130-450); RED BLOOD COUNT 1.34 10^6/uL (4.20-5.40); RED CELL DISTRIBUTION WIDTH 20.6 % (12.0-15.0); WHITE BLOOD COUNT 9.9 x10^3/uL (4.8-10.8)
[2024-02-26 21:20] LABS: HCT - HEMATOCRIT 14.5 % (37.0-47.0); HGB - HEMOGLOBIN 4.4 g/dL (12.0-16.0); SLIDE REVIEW? Indicated
--- NOTE | 2024-02-26 21:25 | XRAY Report ---
PROCEDURE: Chest 1V INDICATIONS: Chest Pain TECHNIQUE: One view of the chest was acquired. COMPARISON: 01/22/2024. FINDINGS: Surgical changes and devices: None. Lungs and pleura: No pleural effusions or pneumothorax. Pulmonary vascular congestion is seen. Under lying bilateral infrahilar infiltrates cannot be excluded. Mediastinum: Mediastinal contours appear normal. Heart size is enlarged. Bones and chest wall: No suspicious bony lesions. Overlying soft tissues appear unremarkable. IMPRESSION: Cardiomegaly and mild congestion. Cannot rule out underlying bilateral infrahilar infiltrates. No sig nificant pleural effusion. No pneumothorax. Reviewed by: Arian Russo MD on 02/26/2024 9:24 PM PDT Approved by: Arian Russo MD on 02/26/2024 9:24 PM PDT Station ID: [id number]
[2024-02-26 21:29] LABS: ALBUMIN 3.3 g/dL (3.2-5.5); ALBUMIN/GLOBULIN RATIO 1.7 (1.0-2.2); BILIRUBIN,TOTAL 0.3 mg/dL (0.2-1.0); CALCIUM 8.5 mg/dL (8.5-10.3); CREATININE 0.6 mg/dL (0.6-1.3); POTASSIUM 3.7 mmol/L (3.5-4.5); TOTAL PROTEIN 5.3 g/dL (6.4-8.9)
[2024-02-26 21:39] LABS: PLATELET ESTIMATE, MANUAL NORMAL (130-450,000) (NORMAL); PLATELET MORPHOLOGY NORMAL APPEARANCE (NORMAL)
[2024-02-26] MEDS: HYDROmorphone 0.5 MG/0.5 ML SYRINGE IVP STA (22:50)
[2024-02-27] MEDS: ACETAMINOPHEN 325 MG TABLET PO STA (02:58)
[2024-02-27] MEDS: HYDROmorphone 0.5 MG/0.5 ML SYRINGE IVP STA (05:51)
[2024-02-27] MEDS: PANTOPRAZOLE 40 MG VIAL IVP STA (07:37)
[2024-02-27] MEDS: oxyCODONE 5 MG TABLET PO STA (08:48)
--- NOTE | 2024-02-27 11:00 | ED Physician Documentation ---
ED Addendum - Addendum Addendum: 02/27/24 10:59 79-year-old female presents to the emergency department with acute anemia secondary to GI blood loss from gastric ulcer. She was given Protonix. Blood transfusions were started. Initially not admitted as there were no beds available, beds became available this morning and we will place the patient in observation for continued transfusion, serial H&H and further care. Discussed the case with Dr. Roque, hospitalist who accepts. This document was made in part using voice recognition software. While efforts are made to proofread this document, sound alike and grammatical errors may occur. Departure - Departure Disposition: ED Place in Observation Clinical Impression: Acute blood loss anemia Anemia Qualifiers: Anemia type: unspecified type Qualified Code(s): D64.9 - Anemia, unspecified Gastric ulcer Qualifiers: Gastric ulcer chronicity: unspecified ulcer chronicity Gastric ulcer complication status: unspecified whether hemorrhage or perforation present Qualified Code(s): K25.9 - Gastric ulcer, unspecified as acute or chronic, without hemorrhage or perforation GI bleed Qualifiers: GI bleed type/associated pathology: unspecified gastrointestinal hemorrhage type Qualified Code(s): K92.2 - Gastrointestinal hemorrhage, unspecified Condition: Stable Forms: PCP List
[2024-02-27] MEDS ORDERED: SODIUM CHLORIDE FLUSH 0.9% 10 ML SYRINGE IVP PRN (11:42)
[2024-02-27] MEDS ORDERED: ONDANSETRON ODT 4 MG TABLET TL PRN ×2 (11:42→11:49)
[2024-02-27] MEDS ORDERED: ONDANSETRON 4 MG/2 ML VIAL IVP PRN (11:42)
[2024-02-27] MEDS ORDERED: ACETAMINOPHEN 325 MG TABLET PO PRN (11:42)
--- NOTE | 2024-02-27 11:51 | PHARMACY PROGRESS NOTE ---
- Best Possible Medication History Admit Date and Time: Processed by: Pharmacy Medications reviewed in ED?: Yes Secondary Source(s): Previous admit records, Facility MAR as ONLY source As the person ultimately responsible for medication therapy, providers are able to order a medication from an existing home medication list in [facility] via the "Reconcile Routine" prior to Confirmation of that medication by phlebotomy support tech. Such practice is discouraged except when the physician, in their clinical judgment, deems that a medical need exists for a medication without regard to previous use.
--- NOTE | 2024-02-27 11:52 | HISTORY & PHYSICAL EXAMINATION ---
Chief Complaint - Chief Complaint Chief Complaint: dizziness and nausea History of Present Illness - Admitted From Admitted From:: [facility] - History Obtained From Records Reviewed: [facility] History obtained from: Dr. Davis Exam Limitations: memory loss - History of Present Illness HPI Comment/Other: Known alcoholic since approximately 1989. Likes to have a gallon of wine in her room at all times at her assisted living facility. At the assisted living facility she has reportedly fallen many times because of loss of balance and intoxication and EMS is called. She has been brought to the emergency room for this as well. She never followed up with GI even though she had a previous history of ulcers in 2020. She had a history of A Corky fundoplication for reflux over 10 years ago. She also has peptic ulcer disease diagnosed in 2020. She did not have a follow- up EGD with GI. In June 2023 she had melena. Because she was hemodynamically stable and felt able to follow-up in the outpatient setting with gastroenterology she was discharged from the ER. She presented to the emergency room February 17, 2024 with dizziness for a week. With that admission her hemoglobin was 8.8. An EGD was done February 18, 2024 done during an admission for the melena and anemia. She has 2 cratered ulcers, 1 on a Corky fundoplication wrap, and 1 on the cardia opposite to the first. The wrap ulcer was superficial but the cardia ulcer was cratered. No visible vessel or active bleeding. The antrum was normal. The patient was discharged with the instructions not to drink and not take any nonsteroidal therapy. Pathology from those biopsies had minimal chronic gastritis with erosion. No H. pylori. There is no metaplasia, dysplasia or carcinoma identified. She now returns to the ER on February 25 with left shoulder pain over the last few days. She has nausea and dizziness but has been going on for a long time. There is no history of trauma even though she has a history of falling. There is no chest pain, cough, shortness of breath. Her temperature was 36.2, heart rate 103, respirations 18. Blood pressure 128/66. 98% on room air. She had left shoulder discomfort to palpation along the anterior rotator cuff. In evaluating her shoulder the ER provider checked a CBC and her hemoglobin was 4.4. No history of melena with this admission. She was transfused 3 units of PRBC in the ER and has had a melantic stool. No change in her BP Repeat Hgb at noon today shows Hgb of 11 which is quite a bump from 4 if only 3 units were transfused. I discussed the case with Dr. Gr. He is already given her to 3 units, IV push Protonix. We know the source of her bleeding is most likely the ulcers in her stomach. She continues to drink alcohol. I will placing her in observation to make sure she is not having an active hemorrhagic GI bleed. I will check her hemoglobin again, transfuse as needed. But I am not can to consult surgery unless I need to keep in giving her blood. she also tells me that the reason she came to the emergency room was the left shoulder pain. It is mysteriously disappeared and she does not know what she did right to make it go away. History - Past Medical History Cardiovascular: reports: Hypertension, High cholesterol Respiratory: reports: None Neuro: reports: Dementia Endocrine/Autoimmune: reports: HyPOthyroidism GI: reports: GERD, GI bleed, Ulcers, Hemorrhoids SONG PLUGGER: reports: Other () : reports: None HEENT: reports: Chronic vision loss (wears glasses) Psych: reports: Depression, Anxiety Musculoskeletal: reports: Chronic back pain Derm: reports: Other MRSA Hx?: No - Past Surgical History General: reports: Colonoscopy, EGD, Other /SONG PLUGGER: reports: section HEENT: reports: Cataracts - Family & Social History Family History Comment/Other: mom at age 99 of old age this last year. Dad at age 61 many years ago of complications of alcoholic liver disease and ci rrhosis. He was a contractor. 1 brother who was also an alcoholic but stopped drinking in his 30s. She says that he is otherwise healthy. 3 children. 1 child was born with defects and brain damage and he at the age of 9. 1 son lives in [place]. He is a contractor. Healthy. 1 daughter suddenly moved to [place]. She does not know why. She is also described as healthy but "a little different". Living arrangement: Assisted living Living Situation: With caregiver(s) Social History Notes: She smoked a pack per day since her teen years until her 40s. She stopped smoking when her children were in high school and asked her to stop smoking. She has been drinking anywhere from 2 glasses of wine a day to january be a gallon every other day for decades. She says that she has no problems with withdrawal, syncope, blackouts, or alcoholic liver disease. She is . 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 - Substance History Abuse: Recurrent use of substance despite neg consequences: Alcohol Abuse Issues: Anxiety Disorder, Mood Disorder, Other (GI bleed) - POLST Patient has POLST: Yes POLST Status: Full Code Meds/Allgy - Home Medications Home Medications: Ambulatory Orders Medication Instructions Recorded Confirmed Gabapentin [Neurontin] 300 mg PO DAILY 04/03/21 02/27/24 Levothyroxine [Synthroid] 25 mcg PO DAILY 04/03/21 02/27/24 Lipase/Protease/Amylase [Creon Dr 5 cap PO DAILY 04/03/21 02/27/24 12,000 Unit Capsule] Metoprolol Succinate [Toprol Xl] 50 mg PO DAILY 04/03/21 02/27/24 Magnesium Oxide [Mag Ox] 400 mg PO DAILY 02/16/24 02/27/24 Multivitamin 1 each PO DAILY 02/16/24 02/27/24 lisinopriL [Lisinopril] 20 mg PO DAILY 02/16/24 02/27/24 LORazepam [Ativan] 0.5 mg PO Q6H PRN #5 tablet 02/20/24 02/27/24 HYDROcod/ACETAM 5/325 [[place] 5/325] 1 ea PO Q6H PRN #18 tablet 02/21/24 02/27/24 Ondansetron Odt [Zofran] 4 mg TL Q6H PRN #10 tablet 02/21/24 02/27/24 Pantoprazole [Protonix] 40 mg PO BID 02/27/24 02/27/24 amLODIPine [Norvasc] 5 mg PO DAILY 02/27/24 02/27/24 - Allergies Allergies/Adverse Reactions: Allergies Allergy/AdvReac Type Severity Reaction Status Date / Time cefazolin Allergy Unknown Verified 02/26/24 20:40 codeine Allergy Unknown Verified 02/26/24 20:40 latex Allergy Unknown Verified 02/26/24 20:40 Penicillins Allergy Unknown Verified 02/26/24 20:40 Sulfa (Sulfonamide Allergy Unknown Verified 02/26/24 20:40 Antibiotics) Review of Systems - Constitutional Constitutional: reports: Fatigue. denies: Fever, Chills, Malaise, Weakness, Po or appetite - Eyes Eyes: reports: Vision loss, Corrective lenses. denies: Pain - Ears, Nose & Throat Ears, Nose & Throat: reports: Hearing loss - Cardiovascular Cariovascular: denies: Irregular heart rate, Palpitations, Chest pain, Edema - Respiratory Respiratory: denies: Cough, Sputum production, Wheezing, Snoring, SOB at rest, SOB with exertion - Gastrointestinal Gastrointestinal: reports: Abdominal pain (off and on since GI bleed), Black stools (inER, none at NURSING HOME), Nausea, Reflux/heartburn (occ but much much better since Corky years ago) - Genitourinary Genitourinary: denies: Dysuria, Frequency, Urgency, Hematuria, Flank pain, Nocturia - Musculoskeletal Musculoskeletal: reports: Joint pain (Right shoulder fx w fall 3 years ago. This week terrible L shoulder pain but no fall. Came to ER with this and now it's all gone). denies: Muscle pain - Integumentary Integumentary: denies: Rash, Pruritis, Lesions - Neurological Neurological: reports: General weakness, Dizziness, Other (she denies memory problems even though has dementia as dx). denies: Focal weakness, Headache - Psychiatric Psychiatric: reports: Depression, Anxiety - Endocrine Endocrine: reports: Intolerance to cold. denies: Polyuria, Polydypsia, Polyphagia - Hematologic/Lymphatic Hematologic/Lymphatic: reports: Anemia, Bruising. denies: Petechiae, Lymphadenopathy, Bleeding tendencies Prior Level of Functionality: Interesting statements. 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 She had a bad fall, does not know why. After that decided to sell her home. After she sold her house, her brother was supposed to drive her to assisted living facility in [place]. But the next thing she knows he drove her to the assisted living facility here on the [address]. To live with her mother. That was 3 and half years ago. Mom last year. She does not know why her brother will not answer her questions about why she still has to live here. He is her power of safety sealer and she would like to rescind that. She states that she is ambulates without any assistance. That s he does not use any durable medical equipment. That she is able to go toilet herself, and bathe her self and dress herself without assistance. All of this is unverified. I do not have any report from the [facility] Exam - Vital Signs Vital Signs: Vital Signs x48h Temp Pulse Pulse Resp BP BP Pulse Ox 02/27/24 11:07 37.0 C 107 H 20 159/95 H 97 02/27/24 10:32 108 H 18 164/105 H 99 02/27/24 08:20 37.0 C 105 H 20 147/110 H 96 02/27/24 08:04 37.0 C 104 H 20 117/65 97 02/27/24 07:33 37.0 C 103 H 18 159/100 H 96 02/27/24 06:15 96 17 157/88 H 98 02/27/24 05:58 36.7 C 97 24 154/92 H 93 02/27/24 05:06 88 17 140/86 H 96 02/27/24 04:40 36.5 C 94 22 145/79 H 99 02/27/24 04:21 36.5 C 93 16 141/85 H 99 02/27/24 04:06 36.8 C 91 16 145/85 H 96 O2 Flow Rate 02/27/24 11:07 02/27/24 10:32 02/27/24 08:20 02/27/24 08:04 0 02/27/24 07:33 0 02/27/24 06:15 2 02/27/24 05:58 2 02/27/24 05:06 2 02/27/24 04:40 2 02/27/24 04:21 02/27/24 04:06 2 Conclusion/Plan - Problem List (1) Gastric ulcer Conclusion/Plan: presumed to be from alcohol. She is not on nonsteroidal therapy at this time. She has a history of gastric ulcer from EGD last month. Not malignant. Plan: Protonix 40 mg IV push N.p.o. until next hemoglobin to then determine if she needs to have endoscopy to cauterize the ulcer or if she can Qualifiers: Gastric ulcer chronicity: unspecified ulcer chronicity Gastric ulcer complication status: unspecified whether hemorrhage or perforation present Qualified Code(s): K25.9 - Gastric ulcer, unspecified as acute or chronic, without hemorrhage or perforation (2) Acute blood loss anemia Conclusion/Plan: Place in observation. Recheck hemoglobin in 6 hours. Transfuse if below 7. Treat ulcer disease as below If remains stable over the next 12 to 18 hours will discharge back to assisted living facility (3) Alcohol use disorder Conclusion/Plan: so far no alcohol withdrawal. She has been in the emergency room overnight and into today. No tachycardia, hallucinations, sweats, agitation. If she starts manifesting signs and symptoms I will order CIWA protocol. labs do show hyponatremia presumed to be from cirrhosis. She also has intermittent macrocytosis, intermittent thrombocytopenia. with yesterday's labs and today's platelets are stable. EGD without varices. Banana bag already given in the emergency room. When she can take p.o. I will give her thiamine and folic acid (4) Dementia associated with alcoholism Conclusion/Plan: She gives me conflicting history. She tells me that she has no problems with memory. That she is completely able to take care of herself but cannot explain to me why she lives in an assisted living facility. She offers the theory that she is living there because her mom lives there and her brother took her there. She would like to leave the assisted living facility but find yourself trapped here [place] She tells me he does have power of safety sealer. I would like to speak to her brother. I will call him tomorrow morning before I discharge her Qualifiers: Dementia severity: unspecified severity - Lab Results Lab results reviewed: Yes Fish Bones: 02/27/24 12:11 02/26/24 21:06 - Diagnostic Imaging Results Diagnostic Imaging Results: positive: Final report reviewed Diagnostic Imaging Results Comments: Chest x-ray has cardiomegaly and mild congestion. Cannot rule out underlying bilateral infrahilar infiltrates. No significant pleural effusion. No pneumothorax. Core Measures - Anticipated LOS I expect patient to be DC'd or transferred within 96 hours.: Yes - DVT/VTE - Prophylaxis VTE/DVT Device ordered at admit?: Yes VTE/DVT Prophylaxis med ordered at admit?: No Not Ordered - Medical Reason: Contraindicated (low platelets and GI bleed)
[2024-02-27 12:15] LABS: HCT - HEMATOCRIT 34.2 % (37.0-47.0); MEAN CORPUSCULAR HEMOGLOBIN 31.1 pg (27.0-31.0); MEAN CORPUSCULAR HGB CONC 32.2 g/dL (32.0-36.0); MEAN CORPUSCULAR VOLUME 96.6 fL (81.0-99.0); MEAN PLATELET VOLUME 11.2 fL (7.9-10.8); RED BLOOD COUNT 3.54 10^6/uL (4.20-5.40); RED CELL DISTRIBUTION WIDTH 18.7 % (12.0-15.0); WHITE BLOOD COUNT 15.1 x10^3/uL (4.8-10.8)
[2024-02-27] MEDS: SODIUM CHLORIDE 0.9% 1,000 ML IV SCH (13:18)
[2024-02-27] MEDS: oxyCODONE 5 MG TABLET PO PRN (15:05)
[2024-02-27 19:46] LABS: HCT - HEMATOCRIT 34.7 % (37.0-47.0); HGB - HEMOGLOBIN 11.2 g/dL (12.0-16.0); MEAN CORPUSCULAR HEMOGLOBIN 30.6 pg (27.0-31.0); MEAN CORPUSCULAR HGB CONC 32.3 g/dL (32.0-36.0); MEAN CORPUSCULAR VOLUME 94.8 fL (81.0-99.0); MEAN PLATELET VOLUME 10.9 fL (7.9-10.8); RED BLOOD COUNT 3.66 10^6/uL (4.20-5.40); RED CELL DISTRIBUTION WIDTH 19.1 % (12.0-15.0)
[2024-02-27] MEDS: SODIUM CHLORIDE FLUSH 0.9% 10 ML SYRINGE IVP SCH (19:46)
[2024-02-27] MEDS: GABAPENTIN 300 MG CAPSULE PO SCH (20:10)
[2024-02-28] MEDS: LORazepam 0.5 MG TABLET PO PRN (02:47)
[2024-02-28] MEDS: PANTOPRAZOLE 40 MG VIAL IVP SCH (06:11)
[2024-02-28] MEDS: LEVOTHYROXINE 25 MCG TABLET PO SCH (06:11)
[2024-02-28 06:17] LABS: CALCIUM 8.2 mg/dL (8.5-10.3); CREATININE 0.5 mg/dL (0.6-1.3); POTASSIUM 3.6 mmol/L (3.5-4.5)
[2024-02-28] MEDS: MAGNESIUM OXIDE 400 MG TABLET PO SCH (08:11)
[2024-02-28] MEDS: lisinopriL 20 MG TABLET PO SCH (08:11)
[2024-02-28] MEDS: MULTIVITAMIN TABLET PO SCH (08:11)
[2024-02-28] MEDS: METOPROLOL SUCCINATE 50 MG TABLET PO SCH (08:11)
--- NOTE | 2024-02-28 08:26 | Discharge Plan ---
Discharge Plan Problem Reviewed?: Yes Disposition: Home, Self Care Condition: Stable Diet: Regular Activity Restrictions: Activity as Tolerated Shower Restrictions: No Driving Restrictions: Yes (no driving) Assistance Devices: [facility] Concerns: You have a known history of gastric ulcers. You have a previous GI bleed as well with this. Unfortunately you are also an alcoholic and continue to drink on an almost yearly basis. Between alcohol use, and ibuprofen for pain, this will worsen your gastric ulcer disease. You were admitted in January and an esophagogastroduodenoscopy which is a video camera that looks inside of your esophagus and stomach, showed you to have 2 ulcers. One of them deeply cratered and scarred. You were discharged back to your assisted living facility with the instructions not to drink and not to take any nonsteroidal therapy. You are also discharged on also medicine. In spite of that you return with severe dizziness, and evaluating your dizziness we found you to have hemoglobin of 4. Normal, in a woman, is 12-14. You denies any black tarry stools. No vomiting of blood. However in the emergency room you did have a black stool. We transfused you 3 units of blood and then observed you for the next day to make sure you were not having any fresh bleeding internally. Your hemoglobin has stayed stable, and you have had no further episodes of black tarry stool. Plan of Treatment: Please follow-up with your primary care provider in the next 1 to 2 weeks. I want them to make sure that your hemoglobin is stable so they will need to do a CBC. Please stop drinking. Please do not drink any alcohol, in any form, for the rest of your life. In about 6 weeks you will need a repeat esophagogastroduodenoscopy to confirm that the ulcers have healed and resolved. While you were here, we had advance care planning discussion. You have identified a philosophy wanting to do everything possible to keep you alive. If you were to not have a pulse or pressure you still want to be fully resuscitated and put on life support. Care Goals: To be able to stop drinking completely. At this time she is also stating that she would like to leave [place] I am not clear if she has freedom to do so. Assessment: Patient is alert and oriented to person, self, vague on the time, and poor insight into situation. No Smoking: If you smoke, Please STOP! Call for help.
--- NOTE | 2024-02-28 08:52 | DISCHARGE SUMMARY ---
Discharge Summary Admit Date: 02/27/24 Discharge Date: 02/28/24 Discharging Provider: Dolores Roque MD Primary Care Provider: Marianne Sanders MD Code Status: Attempt Resuscitation Condition at Discharge: Stable Discharge Disposition: 01 Home, Self Care - DIAGNOSES Discharge Diagnoses with Status of Each Condition: 1. Acute blood loss anemia 2. Gastric ulcers 3. Alcohol use disorder 4. Dementia associated with alcoholism 5. 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 Likes to have a gallon of wine in her room at all times at her assisted living facility. At the assisted living facility she has reportedly fallen many times because of loss of balance and intoxication and EMS is called. She has been brought to the emergency room for this as well. She never followed up with GI even though she had a previous history of ulcers in 2020. She had a history of A Corky fundoplication for reflux over 10 years ago. She also has peptic ulcer disease diagnosed in 2020. She did not have a follow- up EGD with GI. In June 2023 she had melena. Because she was hemodynamically stable and felt able to follow-up in the outpatient setting with gastroenterology she was discharged from the ER. She presented to the emergency room February 17, 2024 with dizziness for a week. With that admission her hemoglobin was 8.8. An EGD was done February 18, 2024 done during an admission for the melena and anemia. She has 2 cratered ulcers, 1 on a Corky fundoplication wrap, and 1 on the cardia opposite to the first. The wrap ulcer was superficial but the cardia ulcer was cratered. No visible vessel or active bleeding. The antrum was normal. The patient was discharged with the instructions not to drink and not take any nonsteroidal therapy. Pathology from those biopsies had minimal chronic gastritis with erosion. No H. pylori. There is no metaplasia, dysplasia or carcinoma identified. She now returns to the ER on February 25 with left shoulder pain over the last few days. She has nausea and dizziness but has been going on for a long time. There is no history of trauma even though she has a history of falling. There is no chest pain, cough, shortness of breath. Her temperature was 36.2, heart rate 103, respirations 18. Blood pressure 128/66. 98% on room air. She had left shoulder discomfort to palpation along the anterior rotator cuff. In evaluating her shoulder the ER provider checked a CBC and her hemoglobin was 4.4. No history of melena with this admission. She was transfused 3 units of PRBC in the ER and has had a melantic stool. No change in her BP Repeat Hgb at noon today shows Hgb of 11 which is quite a bump from 4 if only 3 units were transfused. I discussed the case with Dr. Gr. He is already given her to 3 units, IV push Protonix. We know the source of her bleeding is most likely the ulcers in her stomach. She continues to drink alcohol. I will placing her in observation to make sure she is not having an active hemorrhagic GI bleed. I will check her hemoglobin again, transfuse as needed. But I am not can to consult surgery unless I need to keep in giving her blood. she also tells me that the reason she came to the emergency room was the left shoulder pain. It is mysteriously disappeared and she does not know what she did right to make it go away. - Past Medical History Cardiovascular: reports: Hypertension, High cholesterol Respiratory: reports: None Neuro: reports: Dementia Endocrine/Autoimmune: reports: HyPOthyroidism GI: reports: GERD, GI bleed, Ulcers, Hemorrhoids MUSIC COORDINATOR: reports: Other () : reports: None HEENT: reports: Chronic vision loss (wears glasses) Psych: reports: Depression, Anxiety Musculoskeletal: reports: Chronic back pain Derm: reports: Other MRSA Hx?: No - Past Surgical History General: reports: Colonoscopy, EGD, Other /MUSIC COORDINATOR: reports: section HEENT: reports: Cataracts - HOSPITAL COURSE Hospital Course: Patient was transfused 3 units in the emergency room. And then placed in observation to make sure she was not having an ongoing GI bleed. She had a black tarry stool in the emergency room as they were evaluating her for discharge. Once she was placed in observation, her hemoglobin remained stable, vital signs remained stable, and she had no further black tarry stools. As such I feel she is stable to return back to her assisted living facility. I did speak to her durable and financial power of dialysis equipment technician, her brother Guy Cole. He states that he is full power of dialysis equipment technician. She has cognitive deficits from severe alcohol abuse has been going on since approximately 1989. She is estranged from her children. Both of them do not have much to do with her mom. She has not seen her grandchildren over 10 years.Her son is the secondary listing on the DURABLE POWER OF SUPERINTENDENT CUSTODIAN JANITOR and he has not seen his mom in over a year and a half. Mr. Cole states that sister continues to drink on an ongoing basis. He does not know where she gets the alcohol from. He does not know if he has an Uber wagon driver salesperson delivered, one of her friends pick it up, or if she takes a taxi to [employer] which is down the street from her assisted living facility. Mr. Cole sees her fairly regularly. [place] is [place] the [place] he sees his sister on average once a week. He just saw her 2 weeks ago for lunch and Bracey. He acknowledges that she is wanting greater freedom in her life. She would [place] But he is dubious that she has the cognitive rationale to be able to accomplish those things. He does not fight her on this because he knows that she most likely does not have the wherewithal due to her cognitive deficits. As such she will remain at [facility] indefinitely. He endorses the fact that she wants to be a full code. He wants to give her the dignity of making decisions on her own sometimes. He thinks that is not a practical decision on her part. If she were to have an arrest, brought to the emergency room and be resuscitated, he wishes to be contacted. He doubts he would maintain her on life support indefinitely. She has not had any evidence of withdrawal while here. She has had no further black tarry stool since the emergency room. She is eating a regular diet. No abdominal pain. At discharge Temperature is 36.6. Heart rate 106. Blood pressure 163/106. Respirations 18. 96% on room air. She is 5 foot inches tall, 69.5 kg. A disheveled elderly female who looks her stated age. Oriented to person, place but not time. She understands she is here because she is very anemic but needs to be prompted to remember that she has ulcer disease. I have asked her again to stop drinking and never take nonsteroidal therapy. Lungs are clear, regular rate and rhythm with a systolic ejection murmur, a benign abdomen, and extremit ies without edema. When she stands she is off balance and needs to furniture surf. But she insist that she does not need a walker. She says she does not use a walker at the assisted living facility. This document was made in part using voice recognition software. While efforts are made to proofread this document, sound alike and grammatical errors may occur. - ALLERGIES Allergies/Adverse Reactions: Allergies Allergy/AdvReac Type Severity Reaction Status Date / Time cefazolin Allergy Unknown Verified 02/26/24 20:40 codeine Allergy Unknown Verified 02/26/24 20:40 latex Allergy Unknown Verified 02/26/24 20:40 Penicillins Allergy Unknown Verified 02/26/24 20:40 Sulfa (Sulfonamide Allergy Unknown Verified 02/26/24 20:40 Antibiotics) - MEDICATIONS Home Medications: Ambulatory Orders Medication Instructions Recorded Confirmed Gabapentin [Neurontin] 300 mg PO DAILY 04/03/21 02/27/24 Levothyroxine [Synthroid] 25 mcg PO DAILY 04/03/21 02/27/24 Lipase/Protease/Amylase [Creon Dr 5 cap PO DAILY 04/03/21 02/27/24 12,000 Unit Capsule] Metoprolol Succinate [Toprol Xl] 50 mg PO DAILY 04/03/21 02/27/24 Magnesium Oxide [Mag Ox] 400 mg PO DAILY 02/16/24 02/27/24 Multivitamin 1 each PO DAILY 02/16/24 02/27/24 lisinopriL [Lisinopril] 20 mg PO DAILY 02/16/24 02/27/24 LORazepam [Ativan] 0.5 mg PO Q6H PRN #5 tablet 02/20/24 02/27/24 HYDROcod/ACETAM 5/325 [Madison 5/325] 1 ea PO Q6H PRN #18 tablet 02/21/24 02/27/24 Ondansetron Odt [Zofran Odt] 4 mg TL Q6H PRN #10 tablet 02/21/24 02/27/24 Pantoprazole [Protonix] 40 mg PO BID 02/27/24 02/27/24 amLODIPine [Norvasc] 5 mg PO DAILY 02/27/24 02/27/24 - LABS Result Diagrams: 02/27/24 17:35 02/28/24:16
[2024-02-28 13:50] VITALS: BP 132/92; O2SAT 98
[2024-02-28] MEDS ORDERED: LIPASE/PROTEASE/AMYLASE CAPSULE PO SCH (16:00)
== END 2024-02-28 15:15 | disposition home or self-care (01) ==
LOC: EDUNIT# → ED 20:30 → MS2 02-27 11:42
PROVIDERS: ADMIT Specialist; ATTEND Specialist
DX: D62 Acute posthemorrhagic anemia (principal); K25.4 Chronic or unspecified gastric ulcer with hemorrhage; M25.512 Pain in left shoulder; F10.27 Alcohol dependence with alcohol-induced persisting dementia; R26.0 Ataxic gait; I10 Essential (primary) hypertension; E78.00 Pure hypercholesterolemia, unspecified; E03.9 Hypothyroidism, unspecified; F32.A Depression, unspecified; F41.9 Anxiety disorder, unspecified; Z98.84 Bariatric surgery status; Z87.891 Personal history of nicotine dependence; E87.1 Hypo-osmolality and hyponatremia; D75.89 Other specified diseases of blood and blood-forming organs; D69.6 Thrombocytopenia, unspecified
CPT/HCPCS: 36415; 36430; 71045; 80048; 80053; 83690; 85025; 85027; 86850; 86880; 86900; 86901; 86922; 93005; 96361; 96374; 96375; 96376; 99285; A9270; G0378; J1170; P9016

== ENCOUNTER 2024-03-01 19:15 | Outpatient (CLI) | payer MEDICARE | END 2024-03-01 23:59 | disposition EMS.NT | LOC: EMS 19:15 | DX: M25.512 Pain in left shoulder (principal); G89.29 Other chronic pain ==

== ENCOUNTER 2024-03-10 19:35 | Outpatient (CLI) | payer MEDICARE | END 2024-03-10 23:59 | disposition EMS.NT | LOC: EMS 19:35 | DX: M25.512 Pain in left shoulder (principal) ==

== ENCOUNTER 2024-03-13 04:12 | Outpatient (CLI) | payer MEDICARE | END 2024-03-13 23:59 | disposition critical access hospital (66) | LOC: EMS 04:12 | DX: M25.512 Pain in left shoulder (principal) | CPT/HCPCS: A0425; A0429 ==

== ENCOUNTER 2024-03-13 04:37 | Emergency (ER) | payer MEDICARE ==
--- NOTE | 2024-03-13 04:53 | ED Physician Documentation ---
History of Present Illness - Stated complaint Stated Complaint: ETOH, SHOULDER PAIN X 2 YEARS - History obtained from History obtained from: Patient, EMS - Additonal information Additional information: BIBA. Patient is a resident at [facility]. Patient complains of left shoulder pain x 6 months. Denies injury to left shoulder. She also has chronic right-shoulder pain x 1 and half to 2 years since sustaining fracture due to injury, but . The reason this chronic pain resulted in tonight's ED visit is that patient has been drinking alcohol [facility] (EMS reports she drank 1.5 L of wine), and (per EMS report) staff at [facility] indicated they cannot administer the patient her prescription pain medication (Vicodin) if she has been drinking. No recent injury. This is patient's third [facility] ED visit this month. She was evaluated at the beginning of this month for abdominal pain and melena, treated and released from the ED. She also presented on February 25 for shoulder pain, but was found to be profoundly anemic with hemoglobin of 4.4, transfused several units packed red blood cells and admitted to [facility] and then d/c 02/27. Patient was also admitted last month for GI bleeding, underwent EGD which showed 2 gastric ulcers. PD PAST MEDICAL HISTORY - Past Medical History Cardiovascular: Hypertension, High cholesterol Respiratory: None Neuro: Dementia Endocrine/Autoimmune: HyPOthyroidism GI: GERD, GI bleed, Ulcers, Hemorrhoids SOIL FERTILITY SPECIALIST: Other () : None HEENT: Chronic vision loss (wears glasses) Psych: Depression, Anxiety Musculoskeletal: Chronic back pain Derm: Other - Past Surgical History Past Surgical History: Yes General: Colonoscopy, EGD, Other /SOIL FERTILITY SPECIALIST: section HEENT: Cataracts - Present Medications Home Medications: Ambulatory Orders Medication Instructions Recorded Confirmed Gabapentin [Neurontin] 300 mg PO HS 04/03/21 03/13/24 Levothyroxine [Synthroid] 25 mcg PO DAILY 04/03/21 03/13/24 Lipase/Protease/Amylase [Creon Dr 5 cap PO DAILY 04/03/21 03/13/24 12,000 Unit Capsule] Metoprolol Succinate [Toprol Xl] 50 mg PO DAILY 04/03/21 03/13/24 Magnesium Oxide [Mag Ox] 400 mg PO DAILY 02/16/24 03/13/24 Multivitamin 1 each PO DAILY 02/16/24 03/13/24 lisinopriL [Lisinopril] 20 mg PO DAILY 02/16/24 03/13/24 LORazepam [Ativan] 0.5 mg PO Q6H PRN #5 tablet 02/20/24 03/13/24 HYDROcod/ACETAM 5/325 [[place] 5/325] 1 ea PO Q6H PRN #18 tablet 02/21/24 03/13/24 Ondansetron Odt [Zofran Odt] 4 mg TL Q6H PRN #10 tablet 02/21/24 03/13/24 - Allergies Allergies/Adverse Reactions: Allergies Allergy/AdvReac Type Severity Reaction Status Date / Time cefazolin Allergy Unknown Verified 03/13/24 04:47 codeine Allergy Unknown Verified 03/13/24 04:47 latex Allergy Unknown Verified 03/13/24 04:47 Penicillins Allergy Unknown Verified 03/13/24 04:47 Sulfa (Sulfonamide Allergy Unknown Verified 03/13/24 04:47 Antibiotics) - Social History Does the pt smoke?: No Smoking Status: Former smoker Does the pt drink ETOH?: Yes Does the pt have substance abuse?: No - Immunizations Immunizations are current?: Yes - POLST Patient has POLST: Yes POLST Status: Full Code PD ED PE NORMAL - Vitals Vital signs reviewed: Yes - General General: Alert and oriented X 3, No acute distress, Well developed/nourished, Other (although AAOx3, some conflicting information from patient (such as says she does not have any prescribed pain medication despite having many doses earlier this month)) - HEENT HEENT: Atraumatic, PERRL, EOMI - Cardiac Cardiac: RRR - Respiratory Respiratory: No respiratory distress, Clear bilaterally - Extremities Extremities: No deformity (left shoulder), Normal ROM s pain (left shoulder ) PD ED PE EXPANDED - Extremities Extremities: Other (mild TTP left shoulder at posterolateral aspect but FROM without exacerbation of the pain) Results - Vitals Vitals: Vital Signs - 24 hr 03/13/24 03/13/24 04:47 06:00 Temperature 36.4 C L Heart Rate 80 74 Respiratory 18 16 Rate Blood Pressure 180/105 H 150/93 H O2 Saturation 96 99 Oxygen O2 Source Room air - Labs Labs: Laboratory Tests 03/13/24 03/13/24 05:41 05:41 WBC 3.5 L RBC 4.13 L Hgb 12.4 Hct 38.7 MCV 93.7 MCH 30.0 MCHC 32.0 RDW 15.4 H Plt Count 143 MPV 10.5 Neut # (Auto) 1.5 Lymph # (Auto) 1.5 Edgar # (Auto) 0.3 Eos # (Auto) 0.2 Baso # (Auto) 0.0 Absolute Nucleated RBC 0.00 Nucleated RBC % 0.0 Ethyl Alcohol 243.9 PD Medical Decision Making - ED course Complexity details: considered differential, d/w patient ED course: Serum ethanol level 243. CBC undertaken only because of her recent severe anemia (see HPI). Fortunately, her hemoglobin/hematocrit are normal tonight. She is given 2 tablets of hydrocodone/acetaminophen (5 mg / 325 mg) and discharged back to [facility]. I reviewed with her that she does have Vicodin prescribed for her at [facility] but that EMS indicates [facility] staff has been instructed to not give her Vicodin when she has been drinking alcohol. Not only does the patient express surprise at this, but she says she was completely unaware she even had this medication prescribed for her. This is despite the documentation from [facility] indicating that she has received many doses of Vicodin over the past 3 weeks. I do not see that she has received Vicodin since March 02, however. The documentation from [facility] indicates that she typically has good pain relief with 1 tablet of Vicodin. The discharge summary from her inpatient stay earlier this month includes a note from the hospitalist regarding conversation between hospitalist and the patient's brother (who is the POA). This note indicates that the patient has ongoing cognitive deficits, suspected due to chronic alcohol use disorder Departure - Departure Disposition: 01 Home, Self Care Clinical Impression: Left shoulder pain Qualifiers: Chronicity: chronic Qualified Code(s): M25.512 - Pain in left shoulder Condition: Good Instructions: ED Shoulder Pain [facility] Comments: As we discussed, it is extremely important that you discontinue alcohol use. This is not only due to the potential for dangerous interaction with your prescription pain medication (Vicodin), but also due to your very recent gastrointestinal bleeding due to ulcers.
[2024-03-13 06:15] LABS: BASOPHILS % (AUTO) 0.6 %; EOSINOPHILS # (AUTO) 0.2 10^3/uL (0.0-0.7); EOSINOPHILS % (AUTO) 4.6 %; HCT - HEMATOCRIT 38.7 % (37.0-47.0); HGB - HEMOGLOBIN 12.4 g/dL (12.0-16.0); LYMPHOCYTES # (AUTO) 1.5 10^3/uL (1.5-3.5); LYMPHOCYTES % (AUTO) 43.3 %; MEAN CORPUSCULAR VOLUME 93.7 fL (81.0-99.0); MEAN PLATELET VOLUME 10.5 fL (7.9-10.8); MONOCYTES # (AUTO) 0.3 10^3/uL (0.0-1.0); MONOCYTES % (AUTO) 9.7 %; NEUTROPHILS # (AUTO) 1.5 10^3/uL (1.5-6.6); NEUTROPHILS % (AUTO) 41.5 %; PLT - PLATELET COUNT 143 10^3/uL (130-450); RED BLOOD COUNT 4.13 10^6/uL (4.20-5.40); RED CELL DISTRIBUTION WIDTH 15.4 % (12.0-15.0); WHITE BLOOD COUNT 3.5 x10^3/uL (4.8-10.8)
[2024-03-13] MEDS: HYDROcod/ACETAM 5/325 MG TABLET PO STA (07:46)
[2024-03-13 08:09] VITALS: BP 167/94; O2SAT 98
== END 2024-03-13 08:06 | disposition home or self-care (01) ==
LOC: ED 04:37
DX: M25.512 Pain in left shoulder (principal); G89.29 Other chronic pain; I10 Essential (primary) hypertension; E78.00 Pure hypercholesterolemia, unspecified; E03.9 Hypothyroidism, unspecified; F03.90 Unspecified dementia, unspecified severity, without behavioral disturbance, psychotic disturbance, mood disturbance, and anxiety; Z87.19 Personal history of other diseases of the digestive system
CPT/HCPCS: 36415; 85025; 99283; 99284; A9270; G0480; 82077

== ENCOUNTER 2024-04-21 18:23 | Outpatient (CLI) | payer MEDICARE | END 2024-04-21 23:59 | disposition critical access hospital (66) | LOC: EMS 18:23 | DX: R06.02 Shortness of breath (principal) | CPT/HCPCS: A0425; A0427 ==

== ENCOUNTER 2024-04-21 18:51 | Inpatient (IN) | payer MEDICARE ==
--- NOTE | 2024-04-21 19:10 | ED Physician Documentation ---
History of Present Illness - Stated complaint Stated Complaint: SOA - Chief complaint Chief Complaint: Resp - Additonal information Additional information: Patient came in ambulance from assisted living facility with reports of shortness of breath and diaphoretic. Patient was notably tachypneic on EMS arrival and was placed on CPAP after 6 L nasal cannula only bumped patient up to low 90s. Patient persistently tachycardic in the 130s by EMS ambulance. She was notably having diffuse crackles in bilateral lungs. Patient denies any history of cardiac or lung problems. She notes she was not feeling very well that last few days having a persistent cough, but could not recall if she was having any fevers or chills. Patient's blood sugar on arrival was 106. 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: section HEENT: Cataracts - Present Medications Home Medications: Ambulatory Orders Medication Instructions Recorded Confirmed Gabapentin [Neurontin] 300 mg PO HS 04/03/21 03/13/24 Levothyroxine [Synthroid] 25 mcg PO DAILY 04/03/21 03/13/24 Lipase/Protease/Amylase [Creon Dr 5 cap PO DAILY 04/03/21 03/13/24 12,000 Unit Capsule] Metoprolol Succinate [Toprol Xl] 50 mg PO DAILY 04/03/21 03/13/24 Magnesium Oxide [Mag Ox] 400 mg PO DAILY 02/16/24 03/13/24 Multivitamin 1 each PO DAILY 02/16/24 03/13/24 lisinopriL [Lisinopril] 20 mg PO DAILY 02/16/24 03/13/24 LORazepam [Ativan] 0.5 mg PO Q6H PRN #5 tablet 02/20/24 03/13/24 HYDROcod/ACETAM 5/325 [[place] 5/325] 1 ea PO Q6H PRN #18 tablet 02/21/24 03/13/24 Ondansetron Odt [Zofran Odt] 4 mg TL Q6H PRN #10 tablet 02/21/24 03/13/24 - Allergies Allergies/Adverse Reactions: Allergies Allergy/AdvReac Type Severity Reaction Status Date / Time cefazolin Allergy Unknown Verified 04/21/24 19:03 codeine Allergy Unknown Verified 04/21/24 19:03 latex Allergy Unknown Verified 04/21/24 19:03 Penicillins Allergy Unknown Verified 04/21/24 19:03 Sulfa (Sulfonamide Allergy Unknown Verified 04/21/24 19:03 Antibiotics) - Social History Does the pt smoke?: No Smoking Status: Former smoker Does the pt drink ETOH?: Yes Does the pt have substance abuse?: No - Immunizations Immunizations are current?: Yes - POLST Patient has POLST: Yes POLST Status: Full Code Results - Vitals Vitals: Vital Signs - 24 hr 04/21/24 04/21/24 04/21/24 19:00 19:05 21:00 Temperature 36.0 C L Heart Rate 150 H 140 H 137 H Respiratory 26 H 21 Rate Blood Pressure 149/107 H 148/104 H O2 Saturation 96 98 Oxygen O2 Source Non-rebreather mask - Labs Labs: Laboratory Tests 04/21/24 04/21/24 04/21/24 19:08 19:14 19:14 WBC 10.5 RBC 4.41 Hgb 13.1 Hct 38.6 MCV 87.5 MCH 29.7 MCHC 33.9 RDW 14.3 Plt Count 200 MPV 9.7 Neut # (Auto) 9.6 H Lymph # (Auto) 0.5 L [place] # (Auto) 0.3 Eos # (Auto) 0.0 Baso # (Auto) 0.0 Absolute Nucleated RBC 0.00 Nucleated RBC % 0.0 PT 13.0 H INR 1.2 VBG pH VBG pCO2 VBG pO2 VBG HCO3 VBG Total CO2 VBG O2 Saturation VBG Base Excess Sodium Potassium Chloride Carbon Dioxide Anion Gap BUN Creatinine Estimated GFR (MDRD) Glucose Lactic Acid Calcium Magnesium Total Bilirubin AST ALT Alkaline Phosphatase Lactate Dehydrogenase Troponin I High Sens B-Natriuretic Peptide Total Protein Albumin Globulin Albumin/Globulin Ratio Nasal Adenovirus (PCR) NOT DETECTED Nasal B. parapertussis DNA (PCR) NOT DETECTED Nasal Coronavir 229E PCR NOT DETECTED Nasal Coronavir HKU1 PCR NOT DETECTED Nasal Coronavir NL63 PCR NOT DETECTED Nasal Coronavir OC43 PCR NOT DETECTED Nasal Enterovir/Rhinovir PCR NOT DETECTED Nasal Influenza B PCR NOT DETECTED Nasal Influenza A PCR NOT DETECTED Nasal Parainfluen 1 PCR NOT DETECTED Nasal Parainfluen 2 PCR NOT DETECTED Nasal Parainfluen 3 PCR NOT DETECTED Nasal Parainfluen 4 PCR NOT DETECTED Nasal RSV (PCR) NOT DETECTED Nasal B.pertussis DNA PCR NOT DETECTED Nasal C.pneumoniae (PCR) NOT DETECTED Cj Human Metapneumo PCR NOT DETECTED Nasal M.pneumoniae (PCR) NOT DETECTED Nasal SARS-CoV-2 (PCR) NOT DETECTED Salicylates Acetaminophen Ethyl Alcohol 04/21/24 04/21/24 04/21/24 19:14 19:14 19:14 WBC RBC Hgb Hct MCV MCH MCHC RDW Plt Count MPV Neut # (Auto) Lymph # (Auto) [place] # (Auto) Eos # (Auto) Baso # (Auto) Absolute Nucleated RBC Nucleated RBC % PT INR VBG pH 7.385 VBG pCO2 35.2 L VBG pO2 49.8 H VBG HCO3 20.6 L VBG Total CO2 21.7 L VBG O2 Saturation 83.3 H VBG Base Excess -3.7 L Sodium 121 L Potassium 3.6 Chloride 83 L Carbon Dioxide 20 L Anion Gap 18.0 H BUN 20 Creatinine 0.4 L Estimated GFR (MDRD) 155 Glucose 155 H Lactic Acid Calcium 9.3 Magnesium 1.9 Total Bilirubin 0.5 AST 13 ALT 13 Alkaline Phosphatase 125 H Lactate Dehydrogenase Troponin I High Sens 8.5 B-Natriuretic Peptide Total Protein 7.0 Albumin 3.7 Globulin 3.3 Albumin/Globulin Ratio 1.1 Nasal Adenovirus (PCR) Nasal B. parapertussis DNA (PCR) Nasal Coronavir 229E PCR Nasal Coronavir HKU1 PCR Nasal Coronavir NL63 PCR Nasal Coronavir OC43 PCR Nasal Enterovir/Rhinovir PCR Nasal Influenza B PCR Nasal Influenza A PCR Nasal Parainfluen 1 PCR Nasal Parainfluen 2 PCR Nasal Parainfluen 3 PCR Nasal Parainfluen 4 PCR Nasal RSV (PCR) Nasal B.pertussis DNA PCR Nasal C.pneumoniae (PCR) Cj Human Metapneumo PCR Nasal M.pneumoniae (PCR) Nasal SARS-CoV-2 (PCR) Salicylates < 1.5 Acetaminophen < 0.1 Ethyl Alcohol 108.7 04/21/24 04/21/24 04/21/24 19:51 19:51 19:51 WBC RBC Hgb Hct MCV MCH MCHC RDW Plt Count MPV Neut # (Auto) Lymph # (Auto) [place] # (Auto) Eos # (Auto) Baso # (Auto) Absolute Nucleated RBC Nucleated RBC % PT INR VBG pH VBG pCO2 VBG pO2 VBG HCO3 VBG Total CO2 VBG O2 Saturation VBG Base Excess Sodium Potassium Chloride Carbon Dioxide Anion Gap BUN Creatinine Estimated GFR (MDRD) Glucose Lactic Acid 3.5 H* Calcium Magnesium Total Bilirubin AST ALT Alkaline Phosphatase Lactate Dehydrogenase 153 Troponin I High Sens B-Natriuretic Peptide 124 H Total Protein Albumin Globulin Albumin/Globulin Ratio Nasal Adenovirus (PCR) Nasal B. parapertussis DNA (PCR) Nasal Coronavir 229E PCR Nasal Coronavir HKU1 PCR Nasal Coronavir NL63 PCR Nasal Coronavir OC43 PCR Nasal Enterovir/Rhinovir PCR Nasal Influenza B PCR Nasal Influenza A PCR Nasal Parainfluen 1 PCR Nasal Parainfluen 2 PCR Nasal Parainfluen 3 PCR Nasal Parainfluen 4 PCR Nasal RSV (PCR) Nasal B.pertussis DNA PCR Nasal C.pneumoniae (PCR) Cj Human Metapneumo PCR Nasal M.pneumoniae (PCR) Nasal SARS-CoV-2 (PCR) Salicylates Acetaminophen Ethyl Alcohol PD Medical Decision Making - ED course ED course: Patient 79-year-old female presenting to the emergency department from assisted living facility notably diaphoretic hypoxic on arrival and tachycardic to the 130s. Patient has past medical history of alcohol abuse daily 1 glass of wine daily which she endorsed here but no other significant past medical history. Patient noted to be in sinus tachycardia on EKG heart rate in the 140s. IV access obtained and chest x-ray obtained and labs were started. IV fluids started as no appreciable crackles in the lungs or signs of fluid overload at ti me of arrival. Patient ANO x 3 but is reporting pain to the left side of her chest. She notes she has been having a cough for the past few days but denies any fevers chills nausea vomiting. Patient came in on CPAP machine which was switched to BiPAP machine to help with persistent tachypnea and hypoxia 1934: received call from radiologist with CXR showing pneumothorax and moderate pleural effusion. Patient immediately removed from BiPAP replaced on nonrebreather mask at 10 L patient saturating at 98 to 100% but reporting persistent left-sided chest pain. Labs returning showing no significant leukocytosis hemoglobin stable mildly elevated alcohol level. Negative troponin and lactic acid 3.5. Fluids continue to be red and no signs of fluid overload. Chest tube was placed in left side of chest see procedure note above. Patient was consented for procedure and thoracentesis as moderate amount of fluid removed from pleural effusion as well. Patient's tachycardia slowly improved she is still reporting persistent pain patient's pain improved with fentanyl. Given fluid removed appearing brown and concerning findings of infection will cover with levofloxacin as patient has history of allergies to penicillin Bactrim and cefazolin. Discussed case with product coordinator after repeat chest x-ray shows mild improvement in pneumothorax and patient appears more stable still ANO x 3. He is agreeable with admission and agreeable with antibiotics patient will be sent to the ICU due to persistent tachycardia and hypoxia remaining on nonrebreather 10 L. Blood cultures pending on admission Departure - Departure Disposition: 66 [facility] DC/Xfer Clinical Impression: Pneumothorax, Hypoxia, Shortness of breath, Lactic acidosis Condition: Serious Forms: PCP List
[2024-04-21 19:19] LABS: BASOPHILS % (AUTO) 0.4 %; HCT - HEMATOCRIT 38.6 % (37.0-47.0); HGB - HEMOGLOBIN 13.1 g/dL (12.0-16.0); LYMPHOCYTES # (AUTO) 0.5 10^3/uL (1.5-3.5); LYMPHOCYTES % (AUTO) 4.8 %; MEAN CORPUSCULAR HEMOGLOBIN 29.7 pg (27.0-31.0); MEAN CORPUSCULAR HGB CONC 33.9 g/dL (32.0-36.0); MEAN CORPUSCULAR VOLUME 87.5 fL (81.0-99.0); MEAN PLATELET VOLUME 9.7 fL (7.9-10.8); MONOCYTES # (AUTO) 0.3 10^3/uL (0.0-1.0); NEUTROPHILS # (AUTO) 9.6 10^3/uL (1.5-6.6); NEUTROPHILS % (AUTO) 91.6 %; PLT - PLATELET COUNT 200 10^3/uL (130-450); RED BLOOD COUNT 4.41 10^6/uL (4.20-5.40); RED CELL DISTRIBUTION WIDTH 14.3 % (12.0-15.0); WHITE BLOOD COUNT 10.5 x10^3/uL (4.8-10.8)
[2024-04-21 19:21] LABS: VBG BASE EXCESS -3.7 mmol/L (-2 - +2); VBG HCO3 20.6 mmol/L (23-28); VBG OXYGEN SATURATION 83.3 % (60-80); VBG PCO2 35.2 mmHg (41-51); VBG PH 7.385 (7.31-7.41); VBG PO2 49.8 mmHg (25-47); VBG TOTAL CO2 21.7 mmol/L (24-29)
[2024-04-21 19:26] LABS: INR 1.2 (0.8-1.2)
--- NOTE | 2024-04-21 19:33 | XRAY Report ---
PROCEDURE: Chest 1V INDICATIONS: dyspnea TECHNIQUE: One view of the chest was acquired. COMPARISON: CXR 02/26/2024. CT pulmonary angiogram 02/08. FINDINGS: Surgical changes and devices: None. Lungs and pleura: Moderate left-sided pneumothorax. Small to moderate left pleural effusion. Left ba silar opacity. Mediastinum: Mild left to right midline shift. Heart size is normal. Bones and chest wall: No suspicious bony lesions. Prior left-sided rib fractures. Prior right proxim al humerus fracture. Left distal clavicle osteotomy. Overlying soft tissues appear unremarkable. IMPRESSION: Moderate left-sided pneumothorax. [id number] left-sided pleural effusion. Results were communicated to Dr. Jones at 04/21/2024 7:31 PM PDT. Reviewed by: Karri Almeida MD on 04/21/2024 7:32 PM PDT Approved by: Karri Almeida MD on 04/21/2024 7:32 PM PDT Station ID: [id number]
[2024-04-21 19:37] LABS: ETOH - ETHANOL 108.7 mg/dL; MAGNESIUM 1.9 mg/dL (1.7-2.3)
[2024-04-21 19:39] LABS: ACETAMINOPHEN < 0.1 ug/mL; ALBUMIN 3.7 g/dL (3.2-5.5); ALBUMIN/GLOBULIN RATIO 1.1 (1.0-2.2); ALKALINE PHOSPHATASE 125 IU/L (42-121); ALT ALANINE AMINOTRANSFERASE 13 IU/L (10-60); AST ASPARTATE AMINOTRANSFERASE 13 IU/L (10-42); BILIRUBIN,TOTAL 0.5 mg/dL (0.2-1.0); BUN - BLOOD UREA NITROGEN 20 mg/dL (6-20); CALCIUM 9.3 mg/dL (8.5-10.3); CARBON DIOXIDE - CO2 20 mmol/L (21-32); CHLORIDE 83 mmol/L (101-111); CREATININE 0.4 mg/dL (0.6-1.3); GFR - MDRD 155 (>89); GLUCOSE 155 mg/dL (74-104); POTASSIUM 3.6 mmol/L (3.5-4.5); SALICYLATE < 1.5 mg/dL; SODIUM 121 mmol/L (135-145)
[2024-04-21] MEDS: fentaNYL 100 MCG/2 ML VIAL IVP STA ×2 (20:26→22:10)
[2024-04-21] MEDS: LORazepam 2 MG/ML VIAL IVP STA (20:29)
[2024-04-21 20:56] LABS: B. PARAPERTUSSIS- RESP PCR PAN NOT DETECTED; B. PERTUSSIS- RESP PCR PANEL NOT DETECTED; C. PNEUMONIAE- RESP PCR PANEL NOT DETECTED; CORONAVIRUS 229E-RESP PCR NOT DETECTED; CORONAVIRUS HKU1-RESP PCR NOT DETECTED; CORONAVIRUS NL63-RESP PCR NOT DETECTED; CORONAVIRUS OC43-RESP PCR NOT DETECTED; HUMAN METAPNEUMOVIRUS NOT DETECTED; INFLUENZA A- RESP PCR PANEL NOT DETECTED; INFLUENZA B - RESP PCR PANEL NOT DETECTED; M. PNEUMONIAE- RESP PCR PANEL NOT DETECTED; PARAINFLUENZA VIRUS 1 NOT DETECTED; PARAINFLUENZA VIRUS 2 NOT DETECTED; PARAINFLUENZA VIRUS 3 NOT DETECTED; PARAINFLUENZA VIRUS 4 NOT DETECTED; RHINOVIRUS/ENTEROVIRUS NOT DETECTED; RSV- RESP PCR PANEL NOT DETECTED; SARS-CoV-2 -RESP PCR PANEL NOT DETECTED
[2024-04-21] MEDS: LIDOCAINE 1%-EPI 1:100000 20 ML MDV SUBQ STA (20:56)
[2024-04-21] MEDS: lidocaine 1% 20 ML MDV SUBQ ONE (20:56)
[2024-04-21] MEDS: SODIUM CHLORIDE 0.9% 1,000 ML IV STA (20:58)
[2024-04-21] MEDS: KETOROLAC 15 MG/ML VIAL IVP STA (21:27)
--- NOTE | 2024-04-21 21:49 | XRAY Report ---
PROCEDURE: Chest for Line Placement INDICATIONS: chest tube placement TECHNIQUE: One view of the chest was acquired. COMPARISON: Chest x-ray 04/21/2004.. FINDINGS: Surgical changes and devices: Interval placement of left chest tube with distal tip projecting over the mid to lateral aspect of the lower lobe. There is approximately 4.3 cm of chest tube projecting o stephania the left base. Lungs and pleura: Previous left pneumothorax measures approximately 1.5 cm compared to 2 cm on prior exam. Left effusion is unchanged. Mediastinum: Mediastinal contours appear normal. Heart size is normal. Bones and chest wall: No suspicious bony lesions. Overlying soft tissues appear unremarkable. Rig ht humeral head fracture appearing chronic. IMPRESSION: Interval placement of left chest tubes with mild decrease in size of left pneumothorax. Reviewed by: Cierra Bedolla MD on 04/21/2024 9:48 PM PDT Approved by: Cierra Bedolla MD on 04/21/2024 9:48 PM PDT Station ID: [id number]
[2024-04-21] MEDS ORDERED: ALBUTEROL NEB 2.5 MG/3 ML INH PRN (22:26)
[2024-04-21] MEDS ORDERED: ACETAMINOPHEN 325 MG TABLET PO PRN (22:26)
[2024-04-21] MEDS ORDERED: ONDANSETRON 4 MG/2 ML VIAL IVP PRN (22:26)
[2024-04-21] MEDS ORDERED: SODIUM CHLORIDE FLUSH 0.9% 10 ML SYRINGE IVP PRN (22:26)
[2024-04-21] MEDS: levoFLOXacin 750 MG/150 ML 750 MG/150 ML BAG IV SCH (22:32)
--- NOTE | 2024-04-21 23:16 | HISTORY & PHYSICAL EXAMINATION ---
Chief Complaint - Chief Complaint Chief Complaint: SOB History of Present Illness - Admitted From Admitted From:: Assited Living - History Obtained From Records Reviewed: Yes History obtained from: ER team, review of records Exam Limitations: patient has dementia - History of Present Illness HPI Comment/Other: 79 yr elederly woman with pmh of Hypothyroidism , HTN, mood disorder/anxiety, etoh dependence in past, came in with complaints of acute SOB. Patient found to be hypoxic, tachycardic, patient initially placed on CPAP which was dc as soon as CXR showed left sided pleural effusion and Left sided Pneumothorax, patient heart rate is imroved, no leukocytosis, labs are mostly unremarkable except lactate of 3.5, has hx of gall stones, anemia, Corky fundoplicaiton and gi ulcer Patient was in ER in January an February. She has a Polst which states she is full code. Patient not a good historian, in mild distress on 10 Liters oxygen mask, VBG reviewed, repeat CXR post Chest tube reviewed. 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 Dad at age 61 many years ago of complications of alcoholic liver disease and cirrhosis. He was a contractor. 1 brother who was also an alcoholic but stopp ed drinking in his 30s. She says that he is otherwise healthy. 3 children. 1 child was born with defects and brain damage and he at the age of 9. 1 son lives in [place]. He is a contractor. Healthy. 1 daughter suddenly moved to [place]. She does not know why. She is also described as healthy but "a little different". Living Situation: With caregiver(s) Social History Notes: She smoked a pack per day since her teen years until her 40s. She stopped smoking when her children were in high school and asked her to stop smoking. She has been drinking anywhere from 2 glasses of wine a day to may be a gallon every other day for decades. She says that she has no problems with withdrawal, syncope, blackouts, or alcoholic liver disease. She is . 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 - POLST Patient has POLST: Yes POLST Status: Full Code Meds/Allgy - Home Medications Home Medications: Ambulatory Orders Medication Instructions Recorded Confirmed Gabapentin [Neurontin] 300 mg PO HS 04/03/21 03/13/24 Levothyroxine [Synthroid] 25 mcg PO DAILY 04/03/21 03/13/24 Lipase/Protease/Amylase [Creon Dr 5 cap PO DAILY 04/03/21 03/13/24 12,000 Unit Capsule] Metoprolol Succinate [Toprol Xl] 50 mg PO DAILY 04/03/21 03/13/24 Magnesium Oxide [Mag Ox] 400 mg PO DAILY 02/16/24 03/13/24 Multivitamin 1 each PO DAILY 02/16/24 03/13/24 lisinopriL [Lisinopril] 20 mg PO DAILY 02/16/24 03/13/24 LORazepam [Ativan] 0.5 mg PO Q6H PRN #5 tablet 02/20/24 03/13/24 HYDROcod/ACETAM 5/325 [[place] 5/325] 1 ea PO Q6H PRN #18 tablet 02/21/24 03/13/24 Ondansetron Odt [Zofran Odt] 4 mg TL Q6H PRN #10 tablet 02/21/24 03/13/24 - Allergies Allergies/Adverse Reactions: Allergies Allergy/AdvReac Type Severity Reaction Status Date / Time cefazolin Allergy Unknown Verified 04/21/24 19:03 codeine Allergy Unknown Verified 04/21/24 19:03 latex Allergy Unknown Verified 04/21/24 19:03 Penicillins Allergy Unknown Verified 04/21/24 19:03 Sulfa (Sulfonamide Allergy Unknown Verified 04/21/24 19:03 Antibiotics) Review of Systems - Constitutional Constitutional: reports: Other (14 system review attempted, patient unable to answer) Prior Level of Functionality: Lives at Assisted Living Exam - Vital Signs Vital Signs: Vital Signs x48h Temp Pulse Resp BP Pulse Ox O2 Flow Rate 04/21/24 22:15 134 H 26 H 137/106 H 99 10 04/21/24 22:00 136 H 30 H 147/101 H 96 10 04/21/24 21:00 137 H 21 148/104 H 98 04/21/24 20:00 141 H 31 H 130/97 H 97 04/21/24 19:30 138 H 25 H 117/91 H 97 04/21/24 19:05 140 H 04/21/24 19:00 36.0 C L 150 H 26 H 149/107 H 96 - Physical Exam General Appearance: positive: Mild distress Eyes Bilateral: positive: Normal inspection Respiratory: positive: Other (Left sided chest tube present, decrease air entry in left lung fied) Cardiovascular: positive: Tachycardia Abdomen: positive: Non-tender Back: positive: Nml inspection Neurologic/Psychiatric: positive: Motor nml, Weakness, Other (Very sleepy) Sepsis Event Note (H) - Evaluation Current Stage of Sepsis: Ruled out Conclusion/Plan - Problem List (1) Hypoxia Conclusion/Plan: 79 yr woman being admitted with 1. Acute Hypoxic respiratory failure - Likely from effusion and Pneumothorax, etiology being worked up, on supplemental oxygen 2. Left Pneumothorax Had chest placed in ER, hemodynamics imrpoved post Chest tube, XRay improved, patient will be admitted to ICU 3. left sided pleural effusion Continue to monitor 4. Dementia secondary to ETOH supporitve care 5. ETOH dependence stable at this time, and no evidence of intoxication ntoed 6.Hypothyroidism Continue Synthorid 7. Gatric ulcer PPI 8. HTN Metoprolol Succinate and lisinopril 9. Dementia and Anxiety/Mood disorder continue home meds 10. Elevated Lactate started on Empiric Levaquin, not clear could be from Pneumo and tachycardia and hypoxia 11. DVT Prophylaxis SCD Admit to ICU Activity bed rest Follow up on work up done in ER Full code. (6) Dementia associated with alcoholism Qualifiers: Dementia severity: unspecified severity - Lab Results Fish Bones: 04/21/24 19:14 04/21/24 19:14
[2024-04-21] MEDS: HYDROcod/ACETAM 5/325 MG TABLET PO PRN (23:37)
[2024-04-21] MEDS: SODIUM CHLORIDE 0.9% 1,000 ML IV SCH (23:37)
[2024-04-21] MEDS: LORazepam 0.5 MG TABLET PO PRN (23:42)
[2024-04-21] MEDS ORDERED: MORPHINE 10 MG/ML VIAL IVP STA (23:56)
[2024-04-22] MEDS: IPRATROPIUM 0.2 MG/ML NEB INH SCH (00:26)
[2024-04-22] MEDS: MORPHINE 2 MG/ML CARPUJECT IVP ONE (01:40)
[2024-04-22] MEDS ORDERED: MORPHINE 10 MG/ML VIAL IVP PRN (02:51)
[2024-04-22] MEDS: SODIUM CHLORIDE FLUSH 0.9% 10 ML SYRINGE IVP SCH (03:08)
[2024-04-22] MEDS: LIDOCAINE PATCH 5% TOP PRN (03:08)
[2024-04-22 05:11] LABS: CALCIUM, IONIZED 0.99 mmol/L (1.15-1.33); VBG PH 7.4 (7.31-7.41)
[2024-04-22] MEDS ORDERED: IPRATROPIUM/ALBUTEROL 3 ML NEB INH PRN (05:12)
[2024-04-22 05:17] LABS: BASOPHILS % (AUTO) 0.9 %; HCT - HEMATOCRIT 38.4 % (37.0-47.0); HGB - HEMOGLOBIN 12.8 g/dL (12.0-16.0); LYMPHOCYTES % (AUTO) 8.5 %; MEAN CORPUSCULAR HEMOGLOBIN 29.6 pg (27.0-31.0); MEAN CORPUSCULAR HGB CONC 33.3 g/dL (32.0-36.0); MEAN CORPUSCULAR VOLUME 88.7 fL (81.0-99.0); MEAN PLATELET VOLUME 10.1 fL (7.9-10.8); MONOCYTES % (AUTO) 8.2 %; PLT - PLATELET COUNT 188 10^3/uL (130-450); RED BLOOD COUNT 4.33 10^6/uL (4.20-5.40); RED CELL DISTRIBUTION WIDTH 14.1 % (12.0-15.0); WHITE BLOOD COUNT 4.6 x10^3/uL (4.8-10.8)
[2024-04-22 05:27] LABS: CALCIUM 8.4 mg/dL (8.5-10.3); CREATININE 0.7 mg/dL (0.6-1.3); MAGNESIUM 1.6 mg/dL (1.7-2.3); POTASSIUM 4.4 mmol/L (3.5-4.5)
[2024-04-22 05:29] LABS: ABNORMAL LYMPHS % (MANUAL) 0 %
[2024-04-22 05:50] LABS: BAND NEUTROPHILS % (MANUAL) 20 %; DIFFERENTIAL COMMENT MANUAL DIFFERENTIAL; LYMPHOCYTES # (MANUAL) 1.2 10^3/uL (1.5-3.5); LYMPHOCYTES % (MANUAL) 26 %; METAMYELOCYTES % (MANUAL) 3 %; MONOCYTES # (MANUAL) 0.2 10^3/uL (0.0-1.0); MYELOCYTES % (MANUAL) 3 %; NEUTROPHILS # (MANUAL) 2.9 10^3/uL (1.5-6.6); PLATELET ESTIMATE, MANUAL NORMAL (130-450,000) (NORMAL); RBC MORPHOLOGY (MULTIPLE) NORMAL APPEARANCE (NORMAL)
[2024-04-22] MEDS: SODIUM CHLORIDE 0.9% 1,000 ML IV SCH (05:54)
[2024-04-22] MEDS: MORPHINE 2 MG/ML CARPUJECT IVP PRN (05:55)
[2024-04-22] MEDS: PANTOPRAZOLE 40 MG TABLET PO SCH (06:09)
[2024-04-22] MEDS: CALCIUM GLUCONATE IN NS 0.9% 2,000 MG/100 ML BAG IV ONE (06:39)
[2024-04-22] MEDS: MAGNESIUM SULFATE 2 GRAM 2 GM/50 ML BAG IV ONE (08:01)
[2024-04-22] MEDS: MAGNESIUM OXIDE 400 MG TABLET PO SCH (08:15)
[2024-04-22] MEDS: LEVOTHYROXINE 25 MCG TABLET PO SCH (08:16)
[2024-04-22] MEDS: METOPROLOL SUCCINATE 50 MG TABLET PO SCH (08:16)
[2024-04-22] MEDS: lisinopriL 20 MG TABLET PO SCH (08:19)
[2024-04-22] MEDS: AMYLASE PO SCH (08:25)
[2024-04-22] MEDS: LIPASE PO SCH (08:25)
[2024-04-22] MEDS: PROTEASE PO SCH (08:25)
[2024-04-22] MEDS: [UNRECOGNIZED DRUG - OTHER] PO SCH (08:25)
[2024-04-22] MEDS: FUROSEMIDE 40 MG/4 ML VIAL IVP STA (10:04)
--- NOTE | 2024-04-22 10:05 | XRAY Report ---
PROCEDURE: Chest 1V INDICATIONS: CT out TECHNIQUE: One view of the chest was acquired. COMPARISON: Chest x-ray 04/21/2024 FINDINGS: Surgical changes and devices: Interval removal of left chest tube. Lungs and pleura: Left pneumothorax persists measuring approximately 0.7 cm decreased from 1.5 cm on prior exam. Left basilar opacity persists. Mediastinum: Mediastinal contours appear normal. Heart size is normal. Bones and chest wall: No suspicious bony lesions. Overlying soft tissues appear unremarkable. IMPRESSION: Removal of left chest tube with persistent although decreased pneumothorax. Reviewed by: Cierra Bedolla MD on 04/22/2024 10:04 AM PDT Approved by: Cierra Bedolla MD on 04/22/2024 10:04 AM PDT Station ID: [id number]
[2024-04-22 11:01] LABS: CC,BF WBC 9010 /mm^3
[2024-04-22 11:11] LABS: CC,BF RBC 10000 /mm^3
[2024-04-22] MEDS ORDERED: LIDOCAINE-MPF 1% 5 ML VIAL ONE (11:54)
--- NOTE | 2024-04-22 12:01 | PHARMACY PROGRESS NOTE ---
- Best Possible Medication History Admit Date and Time: 04/21/246 Processed by: Pharmacy Medication History completed: Yes Patient Interview: Pt unable to participate Secondary Source(s): Caregiver (Prescription insurance records, MAR from [place], [place], and call to [facility] ([facility]) to verify all for med reconciliation), Insurance records As the person ultimately responsible for medication therapy, providers are able to order a medication from an existing home medication list in [facility] via the "Reconcile Routine" prior to Confirmation of that medication by technical support engineer. Such practice is discouraged except when the physician, in their clinical judgment, deems that a medical need exists for a medication without regard to previous use.
[2024-04-22 12:05] LABS: CALCIUM, IONIZED 1.19 mmol/L (1.15-1.33); VBG PH 7.32 (7.31-7.41)
[2024-04-22 12:12] LABS: NEUTROPHILS %, BF 1 %
[2024-04-22 12:13] LABS: BF CLARITY BLOODY; BF SOURCE PLEURAL; LYMPHOCYTES %,BODY FLUID 2 %; MACROPHAGES %,BODY FLUID 97 %
[2024-04-22 12:14] LABS: BF COLOR RED
--- NOTE | 2024-04-22 12:47 | PROVIDER PROGRESS NOTE ---
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 Qualifiers: Dementia severity: unspecified severity (8) Alcohol dependence Impression: Hx of alcohol dependence, states she drinks 2-3 glasses of wine/day. Her last drink was the mornign of 04/21. She denies being in withdrawals, is not noted to have agitation or tremors. She recieved 2 gm of magenesium IV infusion on 04/22 and is now on PO mg 400 mg. I will add thiamine and B12. Qualifiers: Substance use status: unspecified alcohol-induced disorder Qualified Code(s): F10.29 - Alcohol dependence with unspecified alcohol-induced disorder (9) Hypertension Impression: Hx of HTN, treated with lisinopril 20 mg and metoprolol 50 mg at home. I will monitor BP and continue her home medications. (10) Hypothyroid Impression: Hx of hypothyroid. I will continue her home dosing of levothyroxine 25 mcg PO daily
--- NOTE | 2024-04-22 12:50 | XRAY Report ---
PROCEDURE: Chest for Line Placement INDICATIONS: CT replaced TECHNIQUE: One view of the chest was acquired. COMPARISON: 04/21/2024 and 02/26/2024. FINDINGS: Surgical changes and devices: Left-sided chest tube tip is seen projecting in the retrocardiac regio n with the tip projecting to the left of mid thoracic spine. Lungs and pleura: There is reexpansion of left lung. No obvious pneumothorax is noted on the current study. Small left pleural effusion is likely present. Trace right pleural effusion is also seen. Mediastinum: Mediastinal contours appear normal. Heart size is enlarged. Bones and chest wall: Multiple left posterior lateral rib fractures are again seen. Overlying soft t issues appear unremarkable. IMPRESSION: Interval placement of left-sided chest tube and reexpansion of left lung. No obvious pneu mothorax is seen on the current study. Reviewed by: Arian Mckeon MD on 04/22/2024 12:49 PM PDT Approved by: Arian Mckeon MD on 04/22/2024 12:49 PM PDT Station ID: [id number]
--- NOTE | 2024-04-22 13:12 | CONSULTATION NOTE ---
Referring Provider Name of Referring Provider:: Dolores Roque Consult Date: 04/22/24 Chief Complaint - Chief Complaint Chief Complaint: left pneumothorax and effusion History of Present Illness - Admitted From Admitted From:: ED - History Obtained From History obtained from: medical records/admitting team Exam Limitations: patient alert but not oriented - History of Present Illness HPI Comment/Other: 79yoF brought from assisted living via EMS to ED yesterday, found to be tachypneic, hypoxic, and tachycardic (HR 150s) with CXR showing left pneumothorax and effusion. A pigtail catheter was placed into the left chest in the ED with improvement in hemodynamics, and the patient was admitted to the ICU on aquin via telehealth IM service. Admission H&P indicates a few day history of cough without reported fever, abdominal pain, nausea or vomiting. SHe has had several recent ED visits for shoulder pain as well as anemia and melena, found to have 2 8mm gastric ulcers on EGD in February 2024. Today she was found with the pigtail completely dislodged and worsened appearance of CXR, thus the IM service called me for assistance replacing the chest tube. Upon my evaluation of the patient in her ICU room, where no family was present, she was alert but not oriented and not able to provide any additional history. 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 Dad at age 61 many years ago of complications of alcoholic liver disease and cirrhosis. He was a contractor. 1 brother who was also an alcoholic but stopped drinking in his 30s. She says that he is otherwise healthy. 3 children. 1 child was born with defects and brain damage and he at the age of 9. 1 son lives in [place]. He is a contractor. Healthy. 1 daughter suddenly moved to [place]. She does not know why. She is also described as healthy but "a little different". Living Situation: With caregiver(s) Social History Notes: She smoked a pack per day since her teen years until her 40s. She stopped smoking when her children were in high school and asked her to stop smoking. She has been drinking anywhere from 2 glasses of wine a day to may be a gallon every other day for decades. She says that she has no problems with withdrawal, syncope, blackouts, or alcoholic liver disease. She is . 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 - Substance History Use: Uses substance without health or social issues: Alcohol Abuse: Recurrent use of substance despite neg consequences: Alcohol - POLST Patient has POLST: Yes POLST Status: Full Code Meds/Allgy - Home Medications Home Medications: Ambulatory Orders Medication Instructions Recorded Confirmed Gabapentin [Neurontin] 300 mg PO HS 04/03/21 04/22/24 Levothyroxine [Synthroid] 25 mcg PO DAILY 04/03/21 04/22/24 Lipase/Protease/Amylase [Creon Dr 5 cap PO DAILY 04/03/21 04/22/24 12,000 Unit Capsule] Metoprolol Succinate [Toprol Xl] 50 mg PO DAILY 04/03/21 04/22/24 Magnesium Oxide [Mag Ox] 400 mg PO DAILY 02/16/24 04/22/24 Multivitamin 1 each PO DAILY 02/16/24 04/22/24 lisinopriL [Lisinopril] 20 mg PO DAILY 02/16/24 04/22/24 LORazepam [Ativan] 0.5 mg PO Q6H PRN #5 tablet 02/20/24 04/22/24 HYDROcod/ACETAM 5/325 [[place] 5/325] 1 ea PO Q6H PRN #18 tablet 02/21/24 04/22/24 Ondansetron Odt [Zofran Odt] 4 mg TL Q6H PRN #10 tablet 02/21/24 04/22/24 Escitalopram [Lexapro] 10 mg PO DAILY 04/22/24 04/22/24 - Allergies Allergies/Adverse Reactions: Allergies Allergy/AdvReac Type Severity Reaction Status Date / Time cefazolin Allergy Unknown Verified 04/21/24 19:03 codeine Allergy Unknown Verified 04/21/24 19:03 latex Allergy Unknown Verified 04/21/24 19:03 Penicillins Allergy Unknown Verified 04/21/24 19:03 Sulfa (Sulfonamide Allergy Unknown Verified 04/21/24 19:03 Antibiotics) Review of Systems - Constitutional Constitutional: reports: Malaise - Respiratory Respiratory: reports: Cough, SOB at rest Exam - Vital Signs Reviewed Vital Signs: Yes Vital Signs: Vital Signs x48h Temp Pulse Resp BP Pulse Ox O2 Flow Rate 04/22/24 12:00 106 H 25 H 103/76 94 10 04/22/24 11:00 103 H 22 115/75 95 10 04/22/24 10:23 36.2 C L 04/22/24 10:00 106 H 20 100/83 H 93 10 04/22/24 09:00 126 H 26 H 98/74 97 10 04/22/24 08:00 36.6 C 129 H 21 168/126 H 99 10 04/22/24 07:00 128 H 17 112/88 H 99 10 04/22/24 06:00 128 H 22 143/94 H 100 10 - Physical Exam General Appearance: positive: Alert, Mild distress Eyes Bilateral: positive: Normal inspection ENT: positive: ENT inspection nml Neck: positive: Nml inspection, Trachea midline Respiratory: negative: Chest non-tender (left chest wall tender, prior tube thoracostomy site at mid axillary line observed.), Breath sounds nml (diminshed left side) Cardiovascular: positive: Tachycardia Peripheral Pulses: positive: 2+ Abdomen: positive: Non-tender Skin: positive: Color nml Extremities: positive: Non-tender Neurologic/Psychiatric: negative: Oriented x3 Reflexes: Ankle (L): 0 Conclusion and Plan - Lab Results Laboratory Results 04/22/24 11:40: Magnesium 3.0 H 04/22/24 11:40: VBG pH 7.320, Ionized Calcium 1.19 04/22/24 09:30: Fluid Source PLEURAL, Fluid Color RED, Fluid Clarity BLOODY, Fluid WBC 9010, Fluid RBC 48642, Fluid Neutrophils % 1, Fluid Lymphocytes % 2, Fluid Macrophages % 97, Fld Mesothelial Cell % Not Reportable 04/22/24 05:01: VBG pH 7.400, Ionized Calcium 0.99 L 04/22/24 05:01: Phosphorus 3.3 04/22/24 05:01: Lactic Acid 1.7 04/22/24 05:01: Sodium 124 L, Potassium 4.4, Chloride 91 L, Carbon Dioxide 23, Anion Gap 10.0, BUN 24 H, Creatinine 0.7, Estimated GFR (MDRD) 81 L, Glucose 121 H, Calcium 8.4 L, Magnesium 1.6 L 04/22/24 05:01: WBC 4.6 L, RBC 4.33, Hgb 12.8, Hct 38.4, MCV 88.7, MCH 29.6, MCHC 33.3, RDW 14.1, Plt Count 188, MPV 10.1, Neut # (Auto) Not Reportable, Lymph # (Auto) Not Reportable, Fleming # (Auto) Not Reportable, Eos # (Auto) Not Reportable, Baso # (Auto) Not Reportable, Absolute Nucleated RBC Not Reportable, Total Counted 100, Band Neuts % (Manual) 20 H, Abnorm Lymph % (Manual) 0, Metamyelocytes % 3 H, Myelocytes % 3 H, Nucleated RBC % Not Reportable, Neutrophils # (Manual) 2.9, Lymphocytes # (Manual) 1.2 L, Monocytes # (Manual) 0.2, Eosinophils # (Manual) 0.0, Basophils # (Manual) 0.0, Differential Comment MANUAL DIFFERENTIAL, Platelet Estimate NORMAL (130-450,000), RBC Morph Micro Appear NORMAL APPEARANCE 04/21/24 23:35: Nasal Screen MRSA (PCR) NEGATIVE 04/21/24 19:51: B-Natriuretic Peptide 124 H 04/21/24 19:51: Lactic Acid 3.5 H* 04/21/24 19:51: Lactate Dehydrogenase 153 04/21/24 19:14: VBG pH 7.385, VBG pCO2 35.2 L, VBG pO2 49.8 H, VBG HCO3 20.6 L, VBG Total CO2 21.7 L, VBG O2 Saturation 83.3 H, VBG Base Excess -3.7 L 04/21/24 19:14: Troponin I High Sens 8.5 04/21/24 19:14: Sodium 121 L, Potassium 3.6, Chloride 83 L, Carbon Dioxide 20 L, Anion Gap 18.0 H, BUN 20, Creatinine 0.4 L, Estimated GFR (MDRD) 155, Glucose 155 H, Calcium 9.3, Magnesium 1.9, Total Bilirubin 0.5, AST 13, ALT 13, Alkaline Phosphatase 125 H, Total Protein 7.0, Albumin 3.7, Globulin 3.3, Albumin/G lobulin Ratio 1.1, Salicylates < 1.5, Acetaminophen < 0.1, Ethyl Alcohol 108.7 04/21/24 19:14: PT 13.0 H, INR 1.2 04/21/24 19:14: WBC 10.5, RBC 4.41, Hgb 13.1, Hct 38.6, MCV 87.5, MCH 29.7, MCHC 33.9, RDW 14.3, Plt Count 200, MPV 9.7, Neut # (Auto) 9.6 H, Lymph # (Auto) 0.5 L, Fleming # (Auto) 0.3, Eos # (Auto) 0.0, Baso # (Auto) 0.0, Absolute Nucleated RBC 0.00, Nucleated RBC % 0.0 04/21/24 19:08: Nasal Adenovirus (PCR) NOT DETECTED, Nasal B. parapertussis DNA (PCR) NOT DETECTED, Nasal Coronavir 229E PCR NOT DETECTED, Nasal Coronavir HKU1 PCR NOT DETECTED, Nasal Coronavir NL63 PCR NOT DETECTED, Nasal Coronavir OC43 PCR NOT DETECTED, Nasal Enterovir/Rhinovir PCR NOT DETECTED, Nasal Influenza B PCR NOT DETECTED, Nasal Influenza A PCR NOT DETECTED, Nasal Parainfluen 1 PCR NOT DETECTED, Nasal Parainfluen 2 PCR NOT DETECTED, Nasal Parainfluen 3 PCR NOT DETECTED, Nasal Parainfluen 4 PCR NOT DETECTED, Nasal RSV (PCR) NOT DETECTED, Nasal B.pertussis DNA PCR NOT DETECTED, Nasal C.pneumoniae (PCR) NOT DETECTED, Cj Human Metapneumo PCR NOT DETECTED, Nasal M.pneumoniae (PCR) NOT DETECTED, Nasal SARS-CoV-2 (PCR) NOT DETECTED - Diagnostic Imaging Results Diagnostic Imaging Results: positive: Final report reviewed, Read contemporaneously - Diagnosis Diagnosis: Left empyema, left pneumothorax - Consultation Note Consultation Note: 79yoF with left pleural effusion and pneumothorax, with initial left chest catheter thoracostomy (pigtail) having been dislodged. Requiring 10L supplemental O2 and with low grade tachycardia (~105), normotensive. Explained to patient the need to replace the left chest tube in order to drain the effusion and treat the pneumothorax; given her dementia and no family present, two provider consent implied in addition to patient signature [Dolores Roque MD, admitting IM service, and myself]. See separate procedure note. 28Fr left tube thoracostomy placed (initially 14cm at the skin but pulled back to 11cm at the skin based on post procedural CXR), with immediate return of copious brown purulent fluid - 120cc into pleurevac. CXR shows chest tube within mid pleural space, not apical. Consistent with empyema, likely loculated based on CXR appearance. - culture swabs as well as fluid sample sent to lab for culture and fluid studies (ordered per IM service) - continue empiric abx, narrow per culture results - maintain pleuravac to 20mmHg wall suction - trend qAM CXR - consider CT chest to better characterize underlying pathology - consider transfer for more advanced management of loculated empyema that may require TPA vs surgical intervention Sharda Ralph DO FACS General Surgeon
[2024-04-22] MEDS: LIPASE/PROTEASE/AMYLASE CAPSULE PO SCH (13:29)
--- NOTE | 2024-04-22 13:38 | PROCEDURE REPORT ---
Hospitalist Procedure Note - Procedure Note Procedure Note: Procedure: Left tube thoracostomy placement Indication: Left pleural effusion and pneumothorax, s/p dislodgement of initial pigtail catheter Post-procedural diagnosis: Left empyema, left pneumothorax Surgeon: Sharda Ralph DO Date of procedure: 04/22/2024 Narrative: The patients consent was augmented via two physician consent given her baseline dementia and lack of family present. A time out was performed with all team members. The patient was positioned supine with left side elevated on a bump. The left chest wall was prepped and draped. The skin and underlying rib space was anesthetized with 1% lidocaine with epinephrine. The skin was incised sharply in transverse orientation at the 4-5th intercostal space alone the mid axillary line. The subcutaneous tissues were spread with a adan clamp until the rib was encountered, then the adan was advanced bluntly into the pleural space along the superior aspect of the rib. There was immediate return of air and brown purulent fluid. a finger sweep confirmed that the lung was away from the chest wall and the pleural space had been entered. A culture swab was used to collect specimen from inside the chest wall. A 28Fr chest tube was advanced easily, secured at 14cm at the skin, then later resecured at 11cm at the skin due to the tube being directed toward the mediastinum on CXR. FLuid samply was also collected in a specimen cup from the tube drainage. THe tube was then connected to the pleurevac and set to 20mghg wall suction. An occlusive dressing was applied. The patient tolerated the procedure, and all needle counts were correct. A post procedure CXR was obtained, demonstrating the tube directed into the mid pleural space rather than apically, which did not correct when the tube was backed out from 14 to 11cm - likely representing the tube within the fissure. Sharda Ralph DO [facility] General Surgeon
[2024-04-22] MEDS: MEROPENEM 1 GM in SODIUM CHLORIDE 0.9% MINIBAG 100 ML IV SCH (14:17)
[2024-04-22] MEDS: MIN OIL/DIMETHICON/COCONUT OIL 92 GM TUBE TOP PRN (16:01)
[2024-04-22] MEDS: GABAPENTIN 300 MG CAPSULE PO SCH (21:20)
--- NOTE | 2024-04-23 00:25 | CT Report ---
PROCEDURE: Chest WO INDICATIONS: loculated effusion Left TECHNIQUE: A CT scan of the chest was performed. Intravenous contrast media was not administered. Images were re corded and evaluated at appropriate window settings. Reformats: axial MIP of the chest, coronal and s agittal. For radiation dose reduction, the following was used: automated exposure control, adjustment of mA and/or kV according to patient size. COMPARISON: CTPA 02/16/2024, chest radiographs 04/22/2024. FINDINGS: Image quality: Diagnostic. Chest wall and lower neck: No thyroid nodule which requires sonographic follow up. No axillary or sup raclavicular adenopathy by size. Bilateral breast implants. Lungs and pleura: Left-sided chest tube is seen along the anterior epicardial fat and pleural space w ith tip in the anterior mediastinum. A loculated thick walled collection of fluid and gas is seen at the medial left lung base which is difficult to measure accurately but is approximately 6.8 x 5.0 cm in axial dimensions by 8.1 cm craniocaudal. There is focal discontinuity of the adjacent gastric wall , and luminal contents are continuous with the loculated collection. Small amount of loculated left p leural fluid is seen and there is trace anterior pneumothorax. The right lung is clear apart from mil d bibasilar atelectasis. Mediastinum: Heart size is normal. No pericardial effusion. No large vessel abnormality. No mediastin al adenopathy by size criteria. Soft tissue nodule anterior to the right atrium measures approximate ly 1.1 x 1.6 cm (52/2), suspicious for an epicardial lymph node. No other enlarged mediastinal lymph nodes are seen. Bones: No aggressive osseous abnormality. Chronic ununited right proximal humeral fracture. Upper Abdomen: Multiple surgical clips are seen in the gastroesophageal junction. There is discontinu ity of the posterior gastric wall at the fundus continuous with the lower chest collection. Layering calcified gallstones/sludge in the gallbladder. IMPRESSION: 1.Perforation of the gastric fundus above the level of the diaphragm with adjacent loculated collecti on of fluid and gas along the posterior medial left lower lobe. 2.Small loculated left pleural effusion and trace left pneumothorax. Left-sided chest tube is seen al nolan the anterior left hemithorax. Findings were discussed with the referring physician, Dr. Gilbert, by telephone on 04/23/2024 at 12:22 A M. Reviewed by: Fredy Solano MD on 04/23/2024 12:24 AM PDT Approved by: Fredy Solano MD on 04/23/2024 12:24 AM PDT Station ID: [id number]
--- NOTE | 2024-04-23 01:06 | ED Physician Documentation ---
ED Addendum - Addendum Addendum: 04/23/24 01:06 I received a call from radiologist Fredy Solano with regard to a CT scan done on this patient who was admitted to the ICU on 04/21/24. The CT scan of the chest had been performed around 1519 yesterday and radiologist was unclear why he had just received it at this time. He reported that the patient appeared to have a perforation of the gastric fundus within a hiatal hernia, and this was causing a loculated fluid collection adjacently with some air as well. I revi ewed the patient's records and found that surgeon Dr. Ralph had been consulted and the patient's care and the patient was being followed for empyema; however, it did not appear that she had been notified of a gastric perforation. As such, given that this patient is not in the emergency department, I did give her a call to inform her of the results that I had received from the radiologist. Dr. Ralph states that she will plan further care of the patient with regard to these findings. 04/23/24 01:08
[2024-04-23 02:27] VITALS: O2SAT 98
[2024-04-23 03:12] LABS: PROTEIN BODY FLUID 2.3 g/dL (.)
[2024-04-23 03:22] VITALS: BP 120/71
[2024-04-23] MEDS ORDERED: PRENATAL VITAMIN TABLET PO SCH (08:00)
[2024-04-23] MEDS ORDERED: THIAMINE 100 MG TABLET PO SCH (09:00)
--- NOTE | 2024-04-23 11:18 | PROVIDER PROGRESS NOTE ---
Progress Note I was notified at [address] results suggesting an intrathoracic gastric perforation, which would explain the patients left pleural purulent infection mixed with air, as well as be consistent with the patients history of a prior Corky fundoplication ( with now recurrent type 3 paraesophageal hernia) as well as recent (February 2024) EGD for anemia demonstrating two gastric ulcers measuring up to 8mm (not actively bleeding at the time of EGD). I called the bedside ICU nurse to coordinate orders for a PO contrasted study to confirm the diagnosis as well as plan for appropriate surgical intervention, which now was urgent. The nurse informed me that patient had been accepted for transfer at [facility] and orange picker machine operator was underway, patient scheduled to depart our facility within 30 minutes (I had not yet been aware that the primary IM service had secured an accepting physician and facility for the patients presumed loculated empyema). I thus was able to get in touch with the thoracic surgeon at the receiving facility, who was already aware of this patient but not these CT results. I discussed the new CT results with the surgeon as well as the now- known need for emergent surgery, and whether it would be best to cancel the transfer and operate here, vs proceed with transfer. The receiving surgeon agreed to proceed with transfer as they had a full thoracic team and OR availability for timely surgical intervention, as compared to our more limited resources at [facility]. I was able to provide additional patient history and clinical status to the receiving thoracic surgeon which he expressed was helpful for his surgical planning. I expressed gratitude for his assistance with the care of this patient, and patient transfer proceeded. Sharda Ralph DO [facility] General surgeon Initialized on 04/23/24 11:06 - END OF NOTE
--- NOTE | 2024-04-23 11:43 | DISCHARGE SUMMARY ---
"Discharge Summary Condition at Discharge: Serious - DIAGNOSES Admission Diagnoses: Acute Hypoxic respiratory failure left pneumothorax left pleural effusion dementia Stable Etoh dependence Hypothyroidism h/o gastric ulcer HTN anxiety Elevated lactate Discharge Diagnoses with Status of Each Condition: Presented to the ED by EMS with respiratory distress, hypoxic, and on CPAP on 04/21. Initial O2 sat unkown, failed to respond to o2 nc @ 6 lpm for EMS and placed on CPAP. Found to have left pneumothorax and pleural effusion in the ED, switched to high flow O2 in and small bore (7Fr)chest tube placed. Repeat chest x-ray confirmed chest tube placement and showed decrease in size of pneumothorax from 2 cm to 1.5. She was started on levaquin and transfered to the ICU. Chest tube noted to be displaced in the ICU @ 0900, O2 sats stable at 95% on 11L by oxymizer. Repeat chest x-ray @ 09:00 showed left pneumothorax and pleural effusion, no tracheal deviation or mediastinal shift. A chest tube was replaced with purulent fluid drainage. Moderate improvement in O2 sat, HR and skin color noted after placement. Chest tube placement confirmed by chest x-ray. Dr. Ralph recommended transfer to higher level of care based on complexity and available resources. I will get a chest CT prior to transfer. Chest CT resulted just prior to transfer. Chest CT shows perforation of the g astric fundus above the level of the diaphragm with adjacent loculated collection of fluid and gas on the left side of the chest. This finding was not apparent at the time transfer was initiated. On-call surgeon discussed with surgeon at receiving hospital at the time of transfer. (2) Sepsis As evidenced by decreased urine output, not well documented in notes, but repo rted to me by RN. White blood cell count on admission 10.5 it is now dropped to 4.6. She has shown tachycardia with a heart rate as high as 142 she is also had hypotension with a systolic blood pressure transiently between 90 and 95. (2) Pneumothorax Impression: See discussion of acute respiratory failure. Differentials include trauma, neoplasm, and complication of infection. Chest x-ray demonstrates old rib fx on the left an old right proximal humerus fx. No acute fx noted and no nodules or lesions concerning for neoplasm. Qualifiers: Pneumothorax type: spontaneous, primary Qualified Code(s): J93.11 - Primary spontaneous pneumothorax (3) Pleural effusion on left Impression: Initial fluid drainage bloody with elevated RBCs at 10,000 and WBCs at 9,010, cytology, chemistry, and cultures not done. Upon placement of second chest tube, purulent fluid drainage was noted and fluid was sent out for cultures, cytology, chemistry and cell count. Effusion determined to be an empyema, started on meropenem 2 gm IV every 8 hrs to increase coverage while waiting on cultures in addition to levaquin. (4) Lactic acidosis Impression: Initial lactate was 3.5 on 04/21. She was started on levaquin in the ED and repeat lactate was 1.7. When chest tube placed at bedside today, purulent fluid drainage noted, indicating likely the source of infection. Await cultures on pleural fluid. (5) Hyponatremia Impression: Initial sodium 121 on 04/21, increased to 124 on 04/22 @ 05:01. This may be related to electrolyte and fluid shifts related to her empyema. She was given 1L NS in the ED and 881 ml before infusion was stopped on 04/22. Control of the infection should also help with correction. (6) Hypochloremia Impression: Intially hypochloremic at 83 on 04/21, increased to 94 on 04/22. This is likely related to fluid and electrolyte shifts due to her empyema. She was given a total of 1,881 ml of NS on 04/21 and 04/22. (7) Dementia associated with alcoholism Impression: Has a hx of alcohol related dementia with anxiety and depression. She was A/Ox3, but assessment limited by respiratory distress at time of assessment. She is receiving PRN IV ativan for anxiety. Qualifiers: Dementia severity: unspecified severity (8) Alcohol dependence Impression: Hx of alcohol dependence, states she drinks 2-3 glasses of wine/day. Her last d rink was the morning of 04/21. She denies being in withdrawals, is not noted to have agitation or tremors. She recieved 2 gm of magenesium IV infusion on 04/22 and is now on PO mg 400 mg. thiamine and B12 added. Qualifiers: Substance use status: unspecified alcohol-induced disorder Qualified Code(s): F10.29 - Alcohol dependence with unspecified alcohol-induced disorder (9) Hypertension Impression: Hx of HTN, treated with lisinopril 20 mg and metoprolol 50 mg at home.. (10) Hypothyroid Impression: Hx of hypothyroid. I will continue her home dosing of levothyroxine 25 mcg PO daily - HPI History of Present Illness: From Telehealth admit H&P: 79 yr elederly woman with pmh of Hypothyroidism , HTN, mood disorder/anxiety, etoh dependence in past, came in with complaints of acute SOB. Patient found to be hypoxic, tachycardic, patient initially placed on CPAP which was dc as soon as CXR showed left sided pleural effusion and Left sided Pneumothorax, patient heart rate is imroved, no leukocytosis, labs are mostly unremarkable except lactate of 3.5, has hx of gall stones, anemia, Corky fundoplicaiton and gi ulcer Patient was in ER in January an February. She has a Polst which states she is full code. Patient not a good historian, in mild distress on 10 Liters oxygen mask, VBG reviewed, repeat CXR post Chest tube reviewed. Patient given Levaquin in Er - CONSULTS | PROCEDURES Consultations: Dr Ralph, General surgery. for placement of chest tube. Procedures: Left-sided chest tube placement Multiple chest x-rays showing left-sided pneumothorax and chest tube placement. CT of the chest 1. Perforation of the gastric fundus above the level of the diaphragm with adjacent loculated collection of fluid and gas along the posterior medial left lower lobe. #2 small loculated pleural effusion and trace left pneumothorax. Left-sided chest tube along the left anterior hemithorax. - HOSPITAL COURSE Hospital Course: Well, admitted via telehealth from the ED with hypoxia tachycardia left-sided pleural effusion and pneumothorax. Also with lactic acidosis. Past medical history of alcoholism status post Corky fundoplication gastric ulcer on a PPI and anemia. Small bore chest tube was placed in the emergency department. Imaging done in the emergency department consisted of a chest x-ray. She was transferred from the emergency department to the intensive care unit with diagnoses of acute hypoxic respiratory failure, left pneumothorax with chest tube in place chest x-ray showing partial resolution and draining blood- tinged fluid. Also with elevated lactate 3.5. She was given Levaquin in the emergency department. Continue to decline with increasing dyspnea. RN noted that chest tube was out of place. Surgery was called and 16 [place] chest tube was placed within the left pleural cavity. This chest tube drained about 120 cc of purulent fluid. At this time it was evident that the patient may require intrathoracic surgical procedure. This facility is not well equipped to handle her current level of complexity. Transfer was initiated. Patient was excepted to general surgery service at [facility] with thoracic surgery consult. CT of the chest was obtained but not resulted for some number of hours. See results documented elsewhere. General surgeon on-call here at [facility] did discuss with excepting surgery service as well as thoracic surgery at [facility] at the time of patient transfer. - ALLERGIES Allergies/Adverse Reactions: Allergies Allergy/AdvReac Type Severity Reaction Status Date / Time cefazolin Allergy Unknown Verified 04/21/24 19:03 codeine Allergy Unknown Verified 04/21/24 19:03 latex Allergy Unknown Verified 04/21/24 19:03 Penicillins Allergy Unknown Verified 04/21/24 19:03 Sulfa (Sulfonamide Allergy Unknown Verified 04/21/24 19:03 Antibiotics) - MEDICATIONS Home Medications: Ambulatory Orders Medication Instructions Recorded Confirmed Gabapentin [Neurontin] 300 mg PO HS 04/03/21 04/22/24 Levothyroxine [Synthroid] 25 mcg PO DAILY 04/03/21 04/22/24 Lipase/Protease/Amylase [Creon Dr 5 cap PO DAILY 04/03/21 04/22/24 12,000 Unit Capsule] Metoprolol Succinate [Toprol Xl] 50 mg PO DAILY 04/03/21 04/22/24 Magnesium Oxide [Mag Ox] 400 mg PO DAILY 02/16/24 04/22/24 Multivitamin 1 each PO DAILY 02/16/24 04/22/24 lisinopriL [Lisinopril] 20 mg PO DAILY 02/16/24 04/22/24 LORazepam [Ativan] 0.5 mg PO Q6H PRN #5 tablet 02/20/24 04/22/24 HYDROcod/ACETAM 5/325 [[place] 5/325] 1 ea PO Q6H PRN #18 tablet 02/21/24 04/22/24 Ondansetron Odt [Zofran Odt] 4 mg TL Q6H PRN #10 tablet 02/21/24 04/22/24 Escitalopram [Lexapro] 10 mg PO DAILY 04/22/24 04/22/24 - PHYSICAL EXAM AT DISCHARGE General Appearance: positive: Moderate distress Eyes Bilateral: positive: Normal inspection ENT: positive: ENT inspection nml Neck: positive: Nml inspection Respiratory: positive: Rhonchi, Other (Decreased breath sounds on the left. Chest tube is draining. Fluid is tidaling.) Cardiovascular: positive: Regular rate & rhythm (occasional mild tachycardia) Abdomen: positive: Tenderness (LUQ, epigastric) Skin: positive: Color nml Extremities: positive: Nml appearance, No pedal edema Neurologic/Psychiatric: positive: Oriented x3 - LABS Result Diagrams: 04/22/24 05:01 04/22/24 05:01 - SEPSIS Current Stage of Sepsis: Sepsis Possible source of Sepsis: Pulmonary Sepsis Criteria: Recorded Heart Rate greater than 90 bpm, Recorded Respiratory Rate greater than 20, Metabolic: lactate > 2 mmol/L (3.5 on 04/21, down to 1.7 on 04/22) - TIME SPENT Time Spent in Discharge (Minutes): 30"
== END 2024-04-23 03:35 | disposition short-term general hospital (02) | DRG 871 ==
LOC: EDUNIT# → ED 18:51 → ICU 22:26
PROVIDERS: ADMIT Internal Medicine; ATTEND Physician Assistant Medical
PROC: 0W9B30Z Drainage of Left Pleural Cavity with Drainage Device, Percutaneous Approach (ICD-10-PCS; principal; 2024-04-22)
DX: J93.9 Pneumothorax, unspecified (principal); A41.9 Sepsis, unspecified organism; J86.9 Pyothorax without fistula; R00.0 Tachycardia, unspecified; R05.9 Cough, unspecified; R06.02 Shortness of breath; R09.02 Hypoxemia; E87.20 Acidosis, unspecified; Z20.818 Contact with and (suspected) exposure to other bacterial communicable diseases; Z20.822 Contact with and (suspected) exposure to COVID-19; Z20.828 Contact with and (suspected) exposure to other viral communicable diseases; J96.01 Acute respiratory failure with hypoxia; J90 Pleural effusion, not elsewhere classified; E87.1 Hypo-osmolality and hyponatremia; F10.27 Alcohol dependence with alcohol-induced persisting dementia; E03.9 Hypothyroidism, unspecified; I10 Essential (primary) hypertension; F41.9 Anxiety disorder, unspecified; E87.8 Other disorders of electrolyte and fluid balance, not elsewhere classified; F32.A Depression, unspecified; F39 Unspecified mood [affective] disorder; E78.00 Pure hypercholesterolemia, unspecified; K44.9 Diaphragmatic hernia without obstruction or gangrene; Z79.890 Hormone replacement therapy; Z79.899 Other long term (current) drug therapy; Z87.19 Personal history of other diseases of the digestive system; Z87.891 Personal history of nicotine dependence
CPT/HCPCS: 32551; 36415; 71045; 71250; 80048; 80053; 80143; 82330; 82803; 82945; 83605; 83615; 83735; 83880; 84100; 84157; 84484; 85025; 85610; 87040; 87070; 87077; 87150; 87205; 87633; 89051; 93005; 94660; 96361; 96374; 96375; 96376; 99285; A6250; A9270; G0480; J2060; J2185; 80179; 82077